=== PATIENT | female | born 1950 | race Caucasian/White ===

== ENCOUNTER → 2019-10-11 11:34 | Outpatient (CLI) | payer MEDICARE, OTHER, SELFPAY ==
--- NOTE | ~2019-10-11 | XR_ITS ---
EXAMINATION: XR chest 2V 10/11/2019 11:53 INDICATION: Dyspnea PROCEDURE: 2 view chest COMPARISON: Comparison to multiple prior studies sequentially, with oldest reviewed study dated 05/10. FINDINGS: The lungs are clear. Pacemaker leads are stable. The cardiomediastinal silhouette is within normal limits. There are no pleural effusions. There is no pneumothorax suspected. IMPRESSION: 1: NO ACUTE CARDIOPULMONARY DISEASE. Reviewed, dictated and finalized at location B. 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
== END ==
PROVIDERS: Visit Provider Family Medicine
DX: R06.09 Other forms of dyspnea (principal)
CPT/HCPCS: 71046

== ENCOUNTER 2019-11-07 05:47 | Day surgery (SDC) | payer MEDICARE, OTHER, SELFPAY ==
[2019-11-06 12:04] VITALS: BMI 31.5
[2019-11-07 07:23] VITALS: BP 127/66; PULSE 65; RESP 13; TEMP 37.2; O2SAT 98
[2019-11-07 07:33] LABS: Hematocrit 40.8 % (37.0-47.0); Hemoglobin 13.2 g/dL (12.0-15.0); Mean Corpuscular HGB Conc 32.4 g/dl (32-36); Mean Corpuscular Hemoglobin 29.3 pg (26-34); Mean Corpuscular Volume 90.5 fl (80-100); Mean Platelet Volume 9.9 fl (7.4-10.4); Platelet Count Result 313 k/mm3 (150-375); Red Blood Count 4.51 M/mm3 (4.2-5.4); White Blood Count 6.7 K/mm3 (4.5-10.0)
[2019-11-07 07:43] LABS: Prothrombin Time 13.1 Seconds (11.1-14.7)
[2019-11-07 07:44] LABS: Blood Urea Nitrogen 16 mg/dL (7-17); Calcium 9.1 mg/dL (8.4-10.2); Carbon Dioxide 25 mmol/L (22-30); Chloride 106 mmol/L (98-107); Estimated CRCL calculation 52 ml/min; Estimated Glomerular Filt Rate 55; Glucose 92 mg/dL (65-105); Potassium 4.1 mmol/L (3.4-5.0); Sodium 139 mmol/L (137-145)
--- NOTE | 2019-11-07 09:04 | PM.IMHP ---
H&P: HPI History of Present Illness Chief complaint: ANA MARÍA Narrative: Reyna Ponce is a 69 year old female with a Medtronic dual-chamber pacemaker which has reached ANA MARÍA. She is pacemaker dependent. She has noted increasing ERIC but no PND, orthopnea or dyspnea at rest. No chest pain. She has a remote history of nonischemic cardiomyopathy with normalization of left ventricular function on medical therapy. She has had an abnormal stress test and suspected but asymptomatic CAD, hyperlipidemia. History of PVCs. Review of Systems Constitutional: Constitutional: Reports fatigue and Reports lethargy ENT: Reports Normal hearing present Cardiovascular: Cardiovascular: Denies chest pain, Reports leg edema (Mild chronic edema) and Denies lightheadedness Respiratory: Respiratory: Denies chest congestion, Denies cough, Reports dyspnea and Reports dyspnea on exertion Gastrointestinal: Gastrointestinal: Denies abdominal pain Genitourinary: Genitourinary: Denies hematuria Musculoskeletal: Musculoskeletal: Reports no additional musculoskeletal complaints Integumentary/Breasts: Skin/Breast: Denies rash Neurologic: Denies confusion Psychiatric: Psychiatric: Denies confusion [facility] Past Medical History Medical History (Updated 11/07/19 @ 09:06 by Bety Venegas MD) Abnormal stress test COPD (chronic obstructive pulmonary disease) History of cardiomyopathy Surgical History Surgical History History of hysterectomy with bilateral oophorectomy Presence of cardiac pacemaker Family History Family History Father Hypertension Family history of elevated blood lipids Cerebrovascular accident Family history of lung cancer Mother Hypertension Family history of elevated blood lipids Family history of lung cancer Patient's mother is Grandparent Carcinoma of colon Sibling Patient's sister is in good health Patient's brother is in good health Social History Social History Smoking status: Never smoker Second hand tobacco smoke exposure: Yes Alcohol intake: never Substance use: never Substance use type: does not use Gender identity (if verbalized by the patient): Female Meds Home Medications and Allergies Home Medications Medication Instructions Recorded Confirmed Type aspirin 81 mg chewable tablet 81 mg PO DAILY 06/14/19 11/06/19 History buspirone 5 mg tablet 5 mg PO BID 06/14/19 11/06/19 History calcium carbonate 600 mg (1,500 1 tablet PO DAILY 06/14/19 11/06/19 History mg)-vitamin D3 400 unit tablet carvedilol phosphate 80 mg 80 mg PO DAILY #90 cap 06/14/19 11/06/19 Rx capsule,[id number] multiphase multivitamin 1 tablet PO DAILY 06/14/19 11/06/19 History umeclidinium 62.5 mcg-vilanterol 1 inhalation INHALATION DAILY 06/14/19 11/06/19 History 25 mcg/actuation powdr for inhalation duloxetine 60 mg capsule,delayed 60 mg PO DAILY #90 cap 09/25/19 11/06/19 Rx release losartan 25 mg tablet 25 mg PO DAILY #90 tablet 09/25/19 11/06/19 Rx pantoprazole 40 mg tablet,delayed 40 mg PO QAM #90 tablet 09/25/19 11/06/19 Rx release atorvastatin 40 mg tablet 40 mg PO DAILY #90 tablet 10/05/19 11/06/19 Rx alprazolam 0.25 mg PO DAILY PRN 11/06/19 11/06/19 History ascorbic acid (vitamin C) 500 mg PO DAILY 11/06/19 11/06/19 History biotin 1 mg PO TID 11/06/19 11/06/19 History glucosamine-methylsulfonylmeth 2 tablet PO BID 11/06/19 11/06/19 History Allergies Allergy/AdvReac Type Severity Reaction Status Date / Time No Known Allergies Allergy Verified 11/06/19 12:02 Vital Signs Vital Signs - 24 hr 11/07/19 07:23 Temperature 98.9 F Pulse Rate 65 Respiratory Rate 13 Blood Pressure 127/66 Pulse Oximetry 98 Exam Narrative: Exam Narrative: Pleasant lady accompanied by brother Mark, no distress Const:
--- NOTE | 2019-11-07 09:11 | WPDMODSED ---
Moderate Sedation Note-Pt Data Patient Data Diagnosis: Older female with Medtronic dual-chamber pacemaker which has reached ANA MARÍA. Pacer dependent. Present Complaint: Pacemaker at ANA MARÍA Procedure to be performed/Plan: Conscious sedation generator change Allergies Allergy/AdvReac Type Severity Reaction Status Date / Time No Known Allergies Allergy Verified 11/06/19 12:02 Home Medications Medication Instructions Recorded Confirmed Type aspirin 81 mg chewable tablet 81 mg PO DAILY 06/14/19 11/06/19 History buspirone 5 mg tablet 5 mg PO BID 06/14/19 11/06/19 History calcium carbonate 600 mg (1,500 1 tablet PO DAILY 06/14/19 11/06/19 History mg)-vitamin D3 400 unit tablet carvedilol phosphate 80 mg 80 mg PO DAILY #90 cap 06/14/19 11/06/19 Rx capsule,[id number] multiphase multivitamin 1 tablet PO DAILY 06/14/19 11/06/19 History umeclidinium 62.5 mcg-vilanterol 1 inhalation INHALATION DAILY 06/14/19 11/06/19 History 25 mcg/actuation powdr for inhalation duloxetine 60 mg capsule,delayed 60 mg PO DAILY #90 cap 09/25/19 11/06/19 Rx release losartan 25 mg tablet 25 mg PO DAILY #90 tablet 09/25/19 11/06/19 Rx pantoprazole 40 mg tablet,delayed 40 mg PO QAM #90 tablet 09/25/19 11/06/19 Rx release atorvastatin 40 mg tablet 40 mg PO DAILY #90 tablet 10/05/19 11/06/19 Rx alprazolam 0.25 mg PO DAILY PRN 11/06/19 11/06/19 History ascorbic acid (vitamin C) 500 mg PO DAILY 11/06/19 11/06/19 History biotin 1 mg PO TID 11/06/19 11/06/19 History glucosamine-methylsulfonylmeth 2 tablet PO BID 11/06/19 11/06/19 History Current Medications: See list Sedation/Anesthesia: No previous sedation/anesthesia problems (including family history). [facility] Past Medical History Medical History (Updated 11/07/19 @ 09:06 by Bety Venegas MD) Abnormal stress test COPD (chronic obstructive pulmonary disease) History of cardiomyopathy Surgical History Surgical History History of hysterectomy with bilateral oophorectomy Presence of cardiac pacemaker Family History Family History Father Hypertension Family history of elevated blood lipids Cerebrovascular accident Family history of lung cancer Mother Hypertension Family history of elevated blood lipids Family history of lung cancer Patient's mother is Grandparent Carcinoma of colon Sibling Patient's sister is in good health Patient's brother is in good health Social History Social History Smoking status: Never smoker Second hand tobacco smoke exposure: Yes Alcohol intake: never Substance use: never Substance use type: does not use Gender identity (if verbalized by the patient): Female Mod Sed Physical Exam Physical Exam Pre Procedural Exam: Normal: Appearance, Eyes, Ears, Nose, Neck, Throat (Dentures), Airway, Lungs, Heart Size, Heart Rate, Heart Rhythm, Neuro Exam, Abdomen, Liver, Extremities (Trace edema) and Skin (Pacemaker incision well healed, right-sided) and Variation: Throat (Dentures) and Extremities (Trace edema) Hours since solid foods: 12 Hours since liquid intake: 12 Internal Medicine - PN: Obj Da Vital Signs Vital Signs: Vital Signs - 24 hr 11/07/19 07:23 Temperature 98.9 F Pulse Rate 65 Respiratory Rate 13 Blood Pressure 127/66 Pulse Oximetry 98 Labs CBC & Chem 7: 11/07/19 07:26 11/07/19 07:26 Labs: Laboratory Results - last 24 hr 11/07/19 11/07/19 11/07/19 07:26 07:26 07:26 WBC 6.7 RBC 4.51 Hgb 13.2 Hct 40.8 MCV 90.5 MCH 29.3 MCHC 32.4 RDW 14.0 Plt Count 313 MPV 9.9 PT 13.1 INR 1.0 Sodium 139 Potassium 4.1 Chloride 106 Carbon Dioxide 25 BUN 16 Creatinine 1.00 Estim Creat Clear Calc 52 Estimated GFR 55 L Glucose 92 Calcium 9.1
--- NOTE | 2019-11-07 14:18 | P.OP_ITS ---
Procedure Note - Detailed Date of procedure: 11/07/19 Pre-op diagnosis: ANA MARÍA pacemaker at ANA MARÍA pacemaker dependent, complete heart block Post-op diagnosis: same Description of procedure: PROCEDURE: Concious sedation Generator change UNDERLYING RHYTHM: asystole CONSCIOUS SEDATION: Assessment: The patient has no history of anesthesia problems. The oropharynx is clear. The patient was deemed to be a good candidate for conscious sedation. The patient had continuous hemodynamic and oximetric monitoring during the procedure. Start time: 1334 Completion time: 14 13 Total conscious sedation time: 39 minutes Medications: Versed 2 mg IV push in fentanyl 50 mcg IV push Trained observer: Anya Moreno RN and Mary Kay Freeman RN Outcome: The patient tolerated the procedure well with no complications. PROCEDURE: After informed consent, the patient is brought to the labor delivery rn and the right prepectoral area was prepped and draped in usual fashion. The patient was given a prophylactic antibiotic intravenously with Ancef. After conscious sedation as described above, the area was anesthetized with 1% lidocaine. A skin incision is made with the Plasma Blade and carried down to the pacing capsule which was also incised. Hemostasis is obtained using the Plasma Blade. The lead/s was/were freed from the underlying capsule and the pulse generator was delivered from the pocket. The lead/s was/were disconnected from the existing device and reconnected to the new device. A gentle tug could not remove it/them. The device and lead/s was/were interrogated and found to be functioning appropriately. The area was copiously irrigated with antibiotic- containing solution. The device was placed in a TyRx pouch ( since this was a 2nd intervention and she is pacemaker dependent) andreplaced in the pocket. The subcutaneous tissues were closed in a two-layer fashion with interrupted 2 0 Vicryl sutures and the skin was closed in a continuous fashion using 4 0 Vicryl. The area was cleansed, an Aquacel dressing applied. The patient tolerated the procedure well with no complications. Estimated blood loss was negligible. DEVICE INFORMATION: Pulse generator: Medtronic Speedway XT DR GRAVES, model number W1DR01, serial number [id number] Existing right atrial lead: Medtronic model 5076-45, serial number [id number] Existing right ventricular lead: Medtronic model number 5076-5 2, serial number [id number] new line explanted device: Medtronic product number [id number], Serial # [id number] THRESHOLD INFORMATION: [facility] atrium: P-wave sensing 0.75 mV, impedance 323 Ohms, threshold 1.0 volts at 0.4 milliseconds Right ventricle: No R-waves present. Impedance 437 Ohms, threshold 1.0 volts at 0.4 milliseconds PROGRAMMED PARAMETERS: DDDR 60-130 Surgeon: Bety Venegas MD Findings: Uneventful generator change Underlying rhythm is ventricular asystole
[2019-11-07 14:30] VITALS: BP 137/85; PULSE 60; RESP 18; TEMP 36.7; O2SAT 100
[2019-11-07 14:45] VITALS: BP 132/79; PULSE 60; RESP 18; O2SAT 100
[2019-11-07 15:00] VITALS: BP 114/61; PULSE 60; RESP 18; O2SAT 100
[2019-11-07 15:15] VITALS: BP 116/76; PULSE 60; RESP 18; O2SAT 100
== END 2019-11-07 15:45 | disposition home or self-care (01) ==
PROVIDERS: PCP Family Medicine; Visit Provider Internal Medicine Cardiovascular Disease
PROC: 0JPT0PZ Removal of Cardiac Rhythm Related Device from Trunk Subcutaneous Tissue and Fascia, Open Approach (ICD-10-PCS; CPT 33228; principal; 2019-11-07 08:30)
DX: Z45.010 Encounter for checking and testing of cardiac pacemaker pulse generator [battery] (principal); I44.2 Atrioventricular block, complete; E78.5 Hyperlipidemia, unspecified; J44.9 Chronic obstructive pulmonary disease, unspecified; R94.39 Abnormal result of other cardiovascular function study; Z79.82 Long term (current) use of aspirin
CPT/HCPCS: 33213; 36415; 80048; 85027; 85610; C1785; J0690; J2250; J3010; J7040

== ENCOUNTER 2020-05-14 10:09 | Outpatient (CLI) | payer MEDICARE, OTHER, SELFPAY ==
--- NOTE | ~2020-05-14 | MM_ITS ---
EXAMINATION: MM screening grant BI w julia HISTORY: Screening TECHNIQUE: Craniocaudal and mediolateral oblique 3-D tomosynthesis images were obtained and synthetic 2-D images were generated. CAD analysis was submitted and interpreted. COMPARISON: Comparison to multiple prior studies sequentially, with oldest reviewed study dated 12/2011. BREAST PARENCHYMAL COMPOSITION: There are scattered areas of fibroglandular density. FINDINGS: There is no evidence of suspicious mass, calcification, or architectural distortion to sugg est malignancy in either breast. There has been no suspicious interval change. IMPRESSION: 1. No mammographic evidence of malignancy. 2. Recommend routine screening mammography in one year. BI-RADS CATEGORY 1 - NEGATIVE Reviewed, dictated and finalized at location A.
== END 2020-05-14 10:10 | disposition home or self-care (01) ==
PROVIDERS: PCP Family Medicine; Visit Provider Family Medicine
DX: Z12.31 Encounter for screening mammogram for malignant neoplasm of breast (principal)
CPT/HCPCS: 77063; 77067

== ENCOUNTER → 2020-10-21 11:09 | Outpatient (CLI) | payer MEDICARE, SELFPAY ==
--- NOTE | ~2020-10-21 | US_ITS ---
EXAMINATION: US soft tissue LE LT DATE: 10/21/2020 11:32 INDICATION: Posterolateral left knee pain TECHNIQUE: Multiple grayscale and Doppler ultrasound images of the posterior left knee were obtained. COMPARISON: None FINDINGS: Normal appearance to the left popliteal artery and vein at the popliteal fossa. No Lopez's cyst or ot her abnormal masses or fluid collections identified at the region of concern. IMPRESSION: 1. No abnormality identified at the left popliteal fossa region of concern. Specifically no Lopez's c yst. Reviewed, dictated and finalized at location B. IMPRESSION: 1. No abnormality identified at the left popliteal fossa region of concern. Spe cifically no Lopez's cyst.
== END ==
PROVIDERS: Visit Provider Family Medicine
DX: M25.562 Pain in left knee (principal)
CPT/HCPCS: 76882

== ENCOUNTER 2020-11-10 15:25 | Observation (INO) | payer MEDICARE, SELFPAY ==
[2020-11-10] VITALS (9 sets, daily range): BP systolic 114–146; BP diastolic 67–91; PULSE 60–72; RESP 12–20; TEMP 36.4–36.6; O2SAT 97–100
--- NOTE | ~2020-11-10 | XR_ITS ---
EXAMINATION: XR chest 2V DATE: 11/10/2020 15:48 INDICATION: Midsternal chest pain. TECHNIQUE: Frontal and lateral views of the chest were obtained. COMPARISON: Chest 2 views 10/11/2019 FINDINGS: There is mild atelectasis at the lung bases. No pleural effusion or pneumothorax. The heart size is normal. There is a right chest wall pacer with leads in the right atrium and right ventricle . IMPRESSION: 1. Mild atelectasis at the lung bases. Reviewed, dictated and finalized at location A.
--- NOTE | ~2020-11-10 | US_ITS ---
EXAMINATION: US venous doppler [facility] DATE: 11/11/2020 12:11 INDICATION: Left lower limb pain TECHNIQUE: Grayscale ultrasound images without and with compression and Doppler ultrasound images of the left lower extremity veins were obtained. COMPARISON: None. FINDINGS: The visualized portions of left common femoral vein, profunda (deep) femoral vein, femoral vein, popl iteal vein, peroneal veins, posterior tibial veins, gastrocnemius vein and greater saphenous vein out flow are patent. IMPRESSION: 1. No deep venous thrombosis in the left lower limb. Reviewed, dictated and finalized at location B.
--- NOTE | 2020-11-10 15:26 | ECG_ITS ---
Measurements Intervals [place] Rate: 71 P: 66 RI: 202 QRS: -76 QRSD: 183 T: 87 QT: 464 QTc: 508 Interpretive Statements ATRIAL SENSE- ELECTRONIC VENTRICULAR PACEMAKER BASELINE ARTIFACT- I, II, III, AVR, AVL, AVF NO FURTHER INTERPRETATION IS POSSIBLE ATYPICAL ECG Electronically Signed On 11-10-2020 17:20:32 CDT by Olvin Frausto D.O.
[2020-11-10 16:16] LABS: Basophils Percent Auto 0.3 % (0.2-1.2); Eosinophils Percent Auto 0.3 % (0-4.4); Hematocrit 40.1 % (37.0-47.0); Hemoglobin 13.2 g/dL (12.0-15.0); Immature Granulocyte Absolute 0.05 K/mm3 (0.00-0.031); Immature Granulocyte Percent A 0.4 % (0-0.5); Lymphocytes Absolute Auto 1.87 K/mm3 (0.9-3.2); Lymphocytes Percent Auto 15.9 % (18.3-44.2); Mean Corpuscular HGB Conc 32.9 g/dl (32-36); Mean Corpuscular Hemoglobin 29.2 pg (26-34); Mean Corpuscular Volume 88.7 fl (80-100); Mean Platelet Volume 9.3 fl (7.4-10.4); Monocytes Absolute Auto 0.8 K/mm3 (0.1-0.6); Monocytes Percent Auto 7.2 % (2.6-8.5); Neutrophils Absolute Auto 8.9 K/mm3 (1.3-6.7); Neutrophils Percent Auto 75.9 % (45.5-73.1); Platelet Count Result 359 k/mm3 (150-375); Red Blood Count 4.52 M/mm3 (4.2-5.4); Red Cell Distribution Width 13.9 % (11.5-14.5); White Blood Count 11.7 K/mm3 (4.5-10.0)
[2020-11-10 16:26] LABS: INR 0.9; Prothrombin Time 12.8 Seconds (11.1-14.7)
[2020-11-10 16:27] LABS: Partial Thromboplastin Time 20.1 SECONDS (22.3-36.8)
[2020-11-10 16:29] LABS: Anion Gap 4 mmol/L (8-16); Blood Urea Nitrogen 15 mg/dL (7-17); Calcium 9.1 mg/dL (8.4-10.2); Carbon Dioxide 30 mmol/L (22-30); Chloride 104 mmol/L (98-107); Estimated CRCL calculation 58 ml/min; Estimated Glomerular Filt Rate > 60; Glucose 128 mg/dL (65-105); Potassium 3.8 mmol/L (3.4-5.0); Sodium 138 mmol/L (137-145)
[2020-11-10 16:41] LABS: Troponin I < 0.012 ng/mL (0.000-0.034)
[2020-11-10] MEDS: ASPIRIN 81 MG CHEWABLE TABLET 324 MG PO (17:11)
--- NOTE | 2020-11-10 17:20 | ED.CHESTPAIN ---
HPI - Chest Pain General Chief Complaint: Chest Pain Stated Complaint: chest pain Time Seen by Provider: 11/10/20 17:01 Source: patient Mode of arrival: ambulatory Limitations: no limitations History of Present Illness HPI narrative: 70-year-old with a history of COPD, anxiety disorder, s/p pacemaker for remote history of cardiomyopathy here with complaints of midsternal chest pain which radiates into her back. Patient states that she was sitting on the couch and developed sudden onset of sharp pain in the mid chest lasted for really admitted to the hospital more than half hour. Patient states that upon arrival to the ER her symptoms have much subsided by the time she came to the room she states that she is feeling fine. She also complains of shortness of breath. Patient also mentions that she has been having tingling numbness in her toes was seen in the ER a week ago had an ultrasound of her leg which did not show any evidence of DVT. Patient denies any history of coronary artery disease . MD complaint: chest pain Onset (ago): hour(s) (2) Timing of current episode: now resolved Onset: during rest Pain location: substernal Pain radiation: back Severity: moderate Quality: sharp Relieving factors: nothing Exacerbating factors: nothing Treatment prior to arrival: none Related Data Home Medications Medication Instructions Recorded Confirmed aspirin 81 mg chewable tablet 81 mg PO DAILY 06/14/19 10/16/20 calcium carbonate 600 mg (1,500 1 tablet PO DAILY 06/14/19 10/16/20 mg)-vitamin D3 400 unit tablet multivitamin 1 tablet PO DAILY 06/14/19 10/16/20 ascorbic acid (vitamin C) 500 mg PO DAILY 11/06/19 10/16/20 biotin 1 mg PO TID 11/06/19 10/16/20 glucosamine-methylsulfonylmeth 2 tablet PO BID 11/06/19 10/16/20 Allergies Allergy/AdvReac Type Severity Reaction Status Date / Time No Known Allergies Allergy Verified 11/10/20 16:06 Review of Systems Review of Systems: All systems reviewed & are unremarkable except as noted in HPI and below Constitutional: Constitutional: Reports no additional constitutional complaints Eyes: Eyes: Reports no additional eye complaints ENT: Reports system reviewed and no additional complaints, except as documented Cardiovascular: Cardiovascular: Reports as per HPI Respiratory: Respiratory: Reports no additional respiratory complaints Gastrointestinal: Gastrointestinal: Reports no additional gastrointestinal complaints Musculoskeletal: Musculoskeletal: Reports no additional musculoskeletal complaints Neurologic: Reports system reviewed and no additional complaints, except as documented Psychiatric: Psychiatric: Reports no additional psychiatric complaints PMFSH Past Medical History Medical History Abnormal stress test COPD (chronic obstructive pulmonary disease) History of cardiomyopathy Surgical History Surgical History History of hysterectomy with bilateral oophorectomy Presence of cardiac pacemaker Family History Family History Father Hypertension Family history of elevated blood lipids Cerebrovascular accident Family history of lung cancer Mother Hypertension Family history of elevated blood lipids Family history of lung cancer Patient's mother is Grandparent Carcinoma of colon Sibling Patient's sister is in good health Patient's brother is in good health Social History Social History Smoking status: Never smoker Second hand tobacco smoke exposure: Yes Alcohol intake: never Substance use: never Substance use type: does not use Gender identity (if verbalized by the patient): Female Exam Narrative: Exam Narrative: GENERAL: Well-appearing, well-nourished, and in no acute distress. HEAD: Normocephalic, atraumatic. EYES: P
--- NOTE | 2020-11-10 18:00 | PM.IMHP ---
H&P: HPI History of Present Illness Date/Time: 11/10/20 18:00 Chief Complaint: Chest pain. Narrative: This is a very pleasant 70-year-old female with history of nonischemic cardiomyopathy with normalization of left ventricular function on medical therapy, Medtronic dual-chamber pacemaker in situ, hypertension, hyperlipidemia, and history of left leg DVT who presented to the emergency department earlier today from home with reports of chest pain. Approximately an hour or so prior to arrival she developed sudden onset of midsternal chest pain described as a ?sharp, deep pain? which radiated throughout her upper back associated with mild shortness of breath. It started to improve somewhat after about 45 minutes and completely resolved in the emergency department without intervention. 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 She has never had similar symptoms in the past. She gives no aggravating or alleviating factors. She denies feelings of racing heart, palpitations, syncope, near syncope, nausea, vomiting, and sweats. She has not had any exertional chest pain. Nor orthopnea or PND. She also denies significant edema however reports discomfort in her left lower extremity, more so behind the left knee for which she had a soft tissue ultrasound on 10/21/2020 which showed no abnormalities, specifically no Lopez's cyst. At the time my evaluation she has no complaints and is having no chest discomfort. Review of Systems Review of Systems: Narrative: Twelve systems were reviewed with pertinent positives and negatives as per HPI. No fever, chills, or sweats. No recent cold or flu symptoms. She denies exposure to those positive for COVID-19. She denies recent change in exercise program, heavy lifting, and concerns for muscle strain. No diarrhea or dysuria. Except as documented, all other systems were reviewed and are negative. [facility] Past Medical History Medical History (Updated 11/10/20 @ 22:35 by Keke Gu PA-C) Abnormal stress test Anxiety Chronic obstructive pulmonary disease Lifelong nonsmoker though she reports significant secondhand smoke exposure. Depression Dyslipidemia Gastroesophageal reflux disease History of cardiomyopathy Nonischemic cardiomyopathy with normalization of left ventricular function on medical therapy. History of deep vein thrombosis of lower extremity Hypertension Left bundle branch block Osteoarthritis Surgical History Surgical History (Updated 11/10/20 @ 22:35 by Keke Gu PA-C) History of appendectomy History of bunionectomy History of cardiac pacemaker in situ Medtronic dual-chamber pacemaker inserted after patient developed complete heart block. History of cholecystectomy History of hysterectomy with bilateral oophorectomy History of tonsillectomy Family History Family History Father Hypertension Family history of elevated blood lipids Cerebrovascular accident Family history of lung cancer Mother Hypertension Family history of elevated blood lipids Family history of lung cancer Patient's mother is Grandparent Carcinoma of colon Sibling Patient's sister is in good health Patient's brother is in good health Social History Social History (Updated 11/10/20 @ 22:32 by Keke Gu PA-C) Social History: The patient lives in [place]. Her son and 2 granddaughters, age 9 and 11, live at home with her. 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 No alcohol, tobacco, or illicit substance use. She designates her brother Valentino Hammer, as her surrogate decision maker and she wishes to be a full code. Sexual Orientation (if Verbalized by the Patient): Straight or Heterosexual Meds Home Medications
--- NOTE | 2020-11-10 18:46 | ADMGEN ---
This patient, Reyna Ponce, was admitted to IMU Room 203-01 [id number] on 11/10/2020. Patient/family oriented to hospital policies and general routines including ID bracelet, bed and alarms, visiting hours, pain management, procedures, bathroom and other care routines, personal items, smoking policy, room service/diet, and visiting hours. Report received from Coretta CATES. Information on how to activate the Rapid Response Team has been discussed. Patient/Family are encouraged to report perceived risks to care and to ask questions if they do not understand what they are told or what they should do.
[2020-11-10 18:56] LABS: Troponin I < 0.012 ng/mL (0.000-0.034)
[2020-11-10 21:59] LABS: Troponin I < 0.012 ng/mL (0.000-0.034)
[2020-11-10 23:03] LABS: D Dimer 0.57 ug/mL (<0.48)
[2020-11-10] MEDS: ALPRAZolam (*CRX) 0.25 MG TABLET PO (23:50)
[2020-11-11] VITALS (9 sets, daily range): BP systolic 117–139; BP diastolic 69–91; PULSE 60–70; RESP 14–16; TEMP 36.3–36.6; O2SAT 97–98
[2020-11-11 05:59] LABS: Alanine Aminotransferase 36 U/L (4-35); Alkaline Phosphatase 61 U/L (38-126); Anion Gap 0 mmol/L (8-16); Aspartate Amino Transferase 46 U/L (14-36); Bilirubin,Total 0.6 mg/dL (0.2-1.3); Blood Urea Nitrogen 14 mg/dL (7-17); Carbon Dioxide 31 mmol/L (22-30); Chloride 107 mmol/L (98-107); Estimated CRCL calculation 60 ml/min; Estimated Glomerular Filt Rate > 60; Glucose 85 mg/dL (65-105); Sodium 138 mmol/L (137-145)
[2020-11-11 06:29] LABS: Potassium 3.8 mmol/L (3.4-5.0)
[2020-11-11] MEDS: UMECLIDINIUM/VILANTEROL 62.5-25 MCG ELLIPTA 1 PUFF INHALATION (08:45)
[2020-11-11] MEDS: DULoxetine HCL 60 MG CAPSULE.DR PO (10:52)
[2020-11-11] MEDS: ATORVASTATIN 40 MG TABLET PO (10:52)
[2020-11-11] MEDS: ASCORBIC ACID 500 MG TABLET PO (10:52)
[2020-11-11] MEDS: PANTOPRAZOLE 40 MG TABLET PO (10:53)
[2020-11-11] MEDS: ASPIRIN 81 MG CHEWABLE TABLET PO (10:53)
[2020-11-11] MEDS: LOSARTAN POTASSIUM 25 MG TABLET PO (10:53)
[2020-11-11] MEDS: MULTIVITAMINS THERAPEUTIC TAB (*BKC) 1 TABLET PO (10:53)
[2020-11-11] MEDS: ENOXAPARIN 40 MG/0.4 ML SYRINGE SUB-Q (10:54)
--- NOTE | 2020-11-11 11:28 | PM.CNCAR ---
Assessment and Plan Assessment and plan (1) Chest pain: Code(s): R07.9 - Chest pain, unspecified Status: Acute Assessment and Plan: Atypical, isolated occurring after meal nonexertional resolved spontaneously, ruled out for myocardial infarction with negative enzymes. History of CT coronary angiogram without significant disease, stress test with fixed apical defect 2018. Denies exertional symptoms. She has no evidence for infarction, patient feels well and is asymptomatic at this time. Complaints of fatigue likely related to poor sleep, possible untreated TANYA, stressful home situation will can't exclude underlying CAD seems less likely given her history, longstanding presumed nonischemic cardiomyopathy with severe LV dysfunction in the past normal eyes for the past several years without evidence of CAD with workup although with apical on stress test as noted. Discussed options for ischemic evaluation which I recommend inpatient versus outpatient. Patient wishes to be discharged home to follow up as an outpatient. Will set up stress test soon as possible with Lexiscan given ventricular pacing. Patient advised if she has recurrence of severe to notify the office and/or present to nearest emergency department via EMS once again. Patient come for the plan of care. Discussed at bedside with her sister as well, all questions answered to their satisfaction. She mentions fatigue which the patient states is longstanding for several years no recent change. Patient describes falling asleep late in the day at times at rest due to fatigue. Consider outpatient sleep study evaluation. From a cardiac perspective provided patient does not have recurrence of chest pain may be discharged home in stable and improved condition to follow up as an outpatient with Dr. Venegas in 2-4 weeks. There is no indication for invasive angiography at this time. We discussed this option in detail given her history the unlikely development of severe obstructive CAD with the above clinical presentation but cannot entirely exclude as a consideration. (2) Hypertension: Code(s): I10 - Essential (primary) hypertension Status: Acute Assessment and Plan: Fair control. Continue current medical therapy. (3) Dyslipidemia: Code(s): E78.5 - Hyperlipidemia, unspecified Status: Acute Assessment and Plan: Continue aspirin, statin, carvedilol. (4) History of cardiomyopathy: Code(s): Z86.79 - Personal history of other diseases of the circulatory system Status: Acute Assessment and Plan: Continue carvedilol, losartan. Well compensated. EF 67% by last evaluation. (5) Presence of cardiac pacemaker: Code(s): Z95.0 - Presence of cardiac pacemaker Status: Acute Assessment and Plan: Pacemaker dependent, Ventricular paced rhythm on telemetry, normal device function last check. Upcoming assessment in the office. History of Present Illness History of Present Illness Consult date/time: Date of service: 11/11/20 11:28 Cardiology consultation at the request of Keke Gu NP for our opinion regarding complaints of chest pain. Requesting physician: Keke Gu PA-C Consult reason: chest pain Reason For Visit: unstable angina Narrative: Patient a very pleasant 70-year-old female with a history of presumed nonischemic cardiomyopathy with severe LV dysfunction in the past normalized the past several years status post dual chamber pacemaker pacemaker dependent, hypertension, dyslipidemia remote history of left lower extremity DVT who presented to the emergency department with her sister due to onset of midsternal chest pain she described as sharp, sensation as if her heart was wanting to burst at of her chest lasting 45 minutes slowly resolving after presentation without intervention. Patient has never experienced similar symptoms. This occurred at rest 1 hour after eating, never noted wit
--- NOTE | 2020-11-11 12:36 | PM.DS ---
DS: Admitting Diagnosis Admitting Diagnosis Admitting Diagnosis: Chief Complaint: Chest pain. DS: Discharge Diagnosis Discharge Diagnosis (1) Chest pain: Code(s): R07.9 - Chest pain, unspecified Status: Acute Assessment and Plan: Atypical in presentation but concerning giving her history of abnormal stress test. Ruled out for acute coronary syndrome by serial troponins. NPO after midnight for possible stress +/- cath. Dr. Venegas (cardiology) consulted and her input is appreciated. Continue aspirin, statin, and beta-desire. (2) Hypertension: Code(s): I10 - Essential (primary) hypertension Status: Acute Assessment and Plan: Blood pressures were reviewed and they are reasonably well controlled. Continue antihypertensives and monitor blood pressure daily. (3) Dyslipidemia: Code(s): E78.5 - Hyperlipidemia, unspecified Status: Acute Assessment and Plan: Continue statin and check LFTs. (4) Left leg pain: Code(s): M79.605 - Pain in left leg Status: Acute Assessment and Plan: Venous Doppler ultrasound in a.m. given history of DVT. DS: Summary Hospital Course Reason for hospitalization: Chief Complaint: Chest pain. Narrative: This is a very pleasant 70-year-old female with history of nonischemic cardiomyopathy with normalization of left ventricular function on medical therapy, Medtronic dual-chamber pacemaker in situ, hypertension, hyperlipidemia, and history of left leg DVT who presented to the emergency department earlier today from home with reports of chest pain. Approximately an hour or so prior to arrival she developed sudden onset of midsternal chest pain described as a ?sharp, deep pain? which radiated throughout her upper back associated with mild shortness of breath. It started to improve somewhat after about 45 minutes and completely resolved in the emergency department without intervention. She was not doing anything particular when the pain occurred but she did spend the morning doing clinical reviewer to include stripping beds, laundry, and vacuuming though she did not have any chest pain at that time. She has never had similar symptoms in the past. She gives no aggravating or alleviating factors. She denies feelings of racing heart, palpitations, syncope, near syncope, nausea, vomiting, and sweats. She has not had any exertional chest pain. Nor orthopnea or PND. She also denies significant edema however reports discomfort in her left lower extremity, more so behind the left knee for which she had a soft tissue ultrasound on 10/21/2020 which showed no abnormalities, specifically no Lopez's cyst. At the time my evaluation she has no complaints and is having no chest discomfort. Hospital Course: Patient with history of nonischemic cardiomyopathy presented atypical chest myocardial infarction was ruled out with 3 sets of negative cardiac enzymes, seen by Cardiology does not suspect coronary artery disease, did recommend cardiac catheterization to further evaluate cardiomyopathy however patient patient to follow-up as outpatient and wants to be discharged, patient is clinically stable will discharge the patient today Status at Discharge Functional status at discharge: uses cane/walker Overall status at discharge: patient is back to baseline Time Spent with Patient Time attestation: Total time spent providing and/or coordinating discharge services: Patient was seen and examined at the time of the discharge Condition at discharge is stable Code status: Full code. Time spent preparing discharge summary, discharge medications, discussing discharge planning with shoe caser and patient is 35 minutes. Time spent: Greater than 30 minutes Exam Narrative: Exam Narrative: Patient is comfortable, NAD HEENT: eyes are clear and none icteric LUNGS:CTA HEART: RR S1S2 ABD: BS+, Soft and nontender Lower extremities: no edema SKIN: nonjaundiced Neur
== END 2020-11-11 13:05 | disposition home or self-care (01) ==
LOC: ANHED 17:30 → ANHIMU 11-11 12:35
PROVIDERS: Emergency Medicine; Physician Assistant; Admitting Provider Internal Medicine; Emergency Provider Family Medicine; PCP Family Medicine; Visit Provider Family Medicine
DX: R07.89 Other chest pain (principal); R53.83 Other fatigue; J44.9 Chronic obstructive pulmonary disease, unspecified; F41.8 Other specified anxiety disorders; I10 Essential (primary) hypertension; E78.5 Hyperlipidemia, unspecified; M79.605 Pain in left leg; Z86.718 Personal history of other venous thrombosis and embolism; Z95.0 Presence of cardiac pacemaker
CPT/HCPCS: 36415; 71046; 80048; 80076; 84484; 85025; 85380; 85610; 85730; 93005; 93971; 96372; 99285; A9270; G0378; J1650

== ENCOUNTER 2021-07-28 09:32 | Outpatient (CLI) | payer MEDICARE, SELFPAY ==
--- NOTE | ~2021-07-28 | MM_ITS ---
EXAMINATION: MM screening [facility] BI w julia HISTORY: Screening mammogram TECHNIQUE: Craniocaudal and mediolateral oblique 3-D tomosynthesis images were obtained and synthetic 2-D images were generated. CAD analysis was submitted and interpreted. COMPARISON: 05/14/2020, 05/11/2017, 03/09/2016 BREAST PARENCHYMAL COMPOSITION: There are scattered areas of fibroglandular density. FINDINGS: There is no evidence of suspicious mass, calcification, or architectural distortion to sugg est malignancy in either breast. There has been no suspicious interval change. IMPRESSION: 1. No mammographic evidence of malignancy. 2. Recommend routine screening mammography in one year. BI-RADS Category 1: Negative Reviewed, dictated and finalized at location A. MACY CLINICAL COORDINATOR
--- NOTE | ~2021-07-28 | DEXA_ITS ---
Bone Density Report Name: TELLY HYATT Age: 71 Sex: Female Ethnicity: White Date of : 1950 Indication: postmenopausal; height loss; asthma or emphysema; hysterectomy; Referring Provider: AIYANA SEE Study: Bone densitometry was performed. Exam Date: July 28, 2021 Accession number: [id number] Bone Density: Region BMD T-score Z-score Classification AP Spine (L1, L3, L4) 1.094 0.4 2.4 Normal Femoral Neck (Left) 0.764 -0.8 1.0 Normal Total Hip (Left) 0.877 -0.5 0.9 Normal Total Hip Bilateral Avg 0.864 -0.6 0.8 Normal Femoral Neck (Right) 0.663 -1.7 0.1 Osteopenia Total Hip (Right) 0.851 -0.7 0.7 Normal World Health Organization criteria for BMD impression classify patients as: Normal (T-score at or above -1.0), Osteopenia (T-score between -1.0 and -2.5), or Osteoporosis (T-score at or below -2.5). Previous Exams: Region Exam Age BMD T-score BMD Change BMD Change Date g/cm2 vs Baseline vs Previous AP Spine(L1, L3, L4) 07/28/2021 71 1.094 0.4 0.048(4.5%)* 0.048(4.5%)* 02/16/2013 62 1.047 -0.1 Total Hip(Left) 07/28/2021 71 0.877 -0.5 -0.033(-3.6%)* -0.055(-5.9%)* 03/09/2016 65 0.932 -0.1 0.022(2.4%) 0.022(2.4%) 02/16/2013 62 0.910 -0.3 Total Hip(Right) 07/28/2021 71 0.851 -0.7 0.009(1.0%) -0.046(-5.1%)* 03/09/2016 65 0.897 -0.4 0.055(6.5%)* 0.055(6.5%)* 02/16/2013 62 0.842 -0.8 *Denotes significance at 95% confidence level, LSC for AP Spine = 0.022 g/cm2, LSC for Total Hip = 0.027 g/cm2 Clinical Information Provided by Patient: Has used the following medications: Vitamin D, Calcium Has the following medical conditions: Asthma or Emphysema, Hysterectomy Patient maximum height was 67 Menopause Age: 49 No regular weight bearing exercise Does not regularly consume dairy products Drinks caffeinated beverages Onset of menses at age 13 Number of children 2 Impression: The patient has low bone mass, based on the Right Femoral Neck T-score. The BMD for the Total Hip(Left) decreased, changing by -5.9% since the last DXA exam. The BMD for the Total Hip(Right) decreased, changing by -5.1% since the last DXA exam. Discussion: BONE DENSITY IS LOW AT ONE OR MORE SKELETAL SITES. This patient's lowest T-score is low at one or more skeletal sites. It meets the World Health Organization's (WHO) criteria for ?low bone mass? (T-score between -1.0 and -2.5). The patient's 10-year risk of fracture as calculated by FRAX is less than the threshold where pharmacological therapy is recommended by the National Osteoporosis Foundation (NOF).
== END 2021-07-28 09:33 | disposition home or self-care (01) ==
LOC: ANHIMG 09:34
PROVIDERS: PCP Family Medicine; Visit Provider Physician Assistant
DX: Z12.31 Encounter for screening mammogram for malignant neoplasm of breast (principal); Z78.0 Asymptomatic menopausal state; M85.851 Other specified disorders of bone density and structure, right thigh
CPT/HCPCS: 77063; 77067; 77080

== ENCOUNTER 2021-12-16 10:08 | Outpatient (CLI) | payer MEDICARE, SELFPAY ==
--- NOTE | 2021-12-16 10:23 | ECG_ITS ---
Measurements Intervals [place] Rate: 62 P: 64 FL: 189 QRS: -72 QRSD: 183 T: 72 QT: 465 QTc: 476 Interpretive Statements ATRIAL SENSE- ELECTRONIC VENTRICULAR PACEMAKER BASELINE ARTIFACT- I, II, III, AVR, AVL, AVF, V1-V6 NO FURTHER INTERPRETATION IS POSSIBLE ATYPICAL ECG Electronically Signed On 12-16-2021 10:40:58 CDT by Olvin Frausto D.O.
[2021-12-16 11:00] LABS: Anion Gap 5 mmol/L (8-16); Blood Urea Nitrogen 13 mg/dL (7-17); Carbon Dioxide 29 mmol/L (22-30); Chloride 104 mmol/L (98-107); Estimated Glomerular Filt Rate > 60; Glucose 69 mg/dL (65-110); Potassium 3.9 mmol/L (3.4-5.0); Sodium 138 mmol/L (137-145)
== END 2021-12-16 10:09 | disposition home or self-care (01) ==
PROVIDERS: Anesthesiology; PCP Family Medicine; Visit Provider Surgery
DX: Z01.818 Encounter for other preprocedural examination (principal); K40.90 Unilateral inguinal hernia, without obstruction or gangrene, not specified as recurrent; I10 Essential (primary) hypertension; Z51.81 Encounter for therapeutic drug level monitoring; Z79.899 Other long term (current) drug therapy
CPT/HCPCS: 36415; 80048; 86850; 86900; 86901; 93005

== ENCOUNTER 2021-12-24 00:15 | Day surgery (SDC) | payer MEDICARE, SELFPAY ==
[2021-12-12 09:14] VITALS: BMI 33.0
--- NOTE | 2021-12-12 09:44 | PC.NURSE ---
Report to the Outpatient Waiting Room, entrance under the green pavilion located off [facility], at time _0730_ on date _12/24/21_. OR Time: _0930_. - You and your visitor will be asked a series of questions to screen for COVID 19 for your protection. - Only one visitor is allowed at this time. - The patient visitor is requested to leave or wait in car when not with patient. - A mask is required within the hospital. Patients may have clear liquids (water, carbonated beverages, clear teas, apple juice) until 3 hours prior to surgery (0630 AM) with a maximum of 20 ounces. - No food from midnight until time of surgery Take the following medications with a SIP of water the morning of surgery: _COREG, DULOXETINE, ALPRAZOLAM IF NEEDED_ Medications to discontinue per ANESTHESIA - MULTIVITAMIN, VITAMIN C & GLUCOSAMINE 3 DAYS PRIOR TO SURGERY, Date to take last dose 12/22/21 Please no make-up, nail turkmen, hairspray, perfume, deodorant, or body powder the day of surgery. No jewelry (including any body piercings) or valuables the day of surgery, leave them at home. Please take a shower or bath the night before, or the morning of, surgery with an antibacterial soap. Wear comfortable, loose fitting clothing. - Jewelry must be removed prior to entering the operating room. Rings and piercings that are not removed may be cut off. - The hospital will not accept responsibility for valuables. - Please leave all valuables, including medications, at home the day of surgery. If you are going home after surgery, a licensed electric pile driver operator must drive you home. - NO public transportation without another adult. - We recommend that an adult stay with you for 24 hours following discharge. - We also recommend that you do not drive, make important decision, drink alcoholic beverages, or take any drugs that were not prescribed by your health care provider for at least 24 hours after your discharge time. Follow any additional instructions given to you from your surgeon. HIBICLENS SHOWER AM OF SURGERY If you or anyone in your household have experienced Covid symptoms in the past week, please notify your surgeon or the nurse liaison at the phone number below for possible testing. Telephone instructions given to _PT_and asked if any additional questions and then verbalized understanding. Patient advised to call surgeon office or pre surgery nurse liaison [phone] if any additional questions.
[2021-12-24] VITALS (16 sets, daily range): BP systolic 109–138; BP diastolic 59–80; PULSE 60–84; RESP 10–20; TEMP 36.2–36.4; O2SAT 96–100
[2021-12-24] MEDS: LACTATED RINGERS 1,000 ML 30 ML IV CONT ×2 (07:45→11:08)
[2021-12-24] MEDS: ACETAMINOPHEN 500 MG TABLET 1000 MG PO (07:52)
[2021-12-24] MEDS: KETOROLAC 15 MG/ML VIAL (*BKC) IV PUSH (07:53)
--- NOTE | 2021-12-24 08:34 | WPDANESEPPF ---
Anes - Initial Pre Proc Eval Procedure: Operation Date: 12/24/21 09:30 Proposed Procedures p Laparoscopic Right Inguinal Hernia Repair with Mesh, DaVinci Assisted - Ravi Siddiqi DO Date/Time: 12/24/21 08:34 Surgeon: Ravi Siddiqi DO Pre Op Diagnosis: Rt Ing Hernia Patient Data Age: 71 Gender: F Height: 1.65 m Weight: 83.15 kg Last Vital Signs Temp 36.2 C L 12/24/21 07:45 Pulse 84 12/24/21 07:45 Resp 16 12/24/21 07:45 BP 124/78 12/24/21 07:45 Pulse Ox 96 12/24/21 07:45 Allergies Allergy/AdvReac Type Severity Reaction Status Date / Time No Known Allergies Allergy Verified 12/24/21 08:18 Home Medications Medication Instructions Recorded Confirmed Type aspirin 81 mg chewable tablet 81 mg PO HS 06/14/19 12/24/21 History multivitamin 1 tablet PO DAILY 06/14/19 12/24/21 History ascorbic acid (vitamin C) 500 mg PO DAILY 11/06/19 12/12/21 History pantoprazole 40 mg tablet,delayed 40 mg PO QAM #90 tablet 10/16/20 12/12/21 Rx release calcium carbonate-vitamin D3 2 tablet PO QAM 11/10/20 12/12/21 History glucosamine sulfate 1,000 mg PO DAILY 11/10/20 12/12/21 History furosemide 20 mg tablet 20 mg PO QAM 05/14/21 12/12/21 History gabapentin 300 mg capsule 300 mg PO QHS 05/14/21 12/12/21 History alprazolam 0.25 mg tablet 0.25 mg PO DAILY PRN #30 tablet 09/29/21 12/24/21 Rx atorvastatin 40 mg PO QAM 12/12/21 12/12/21 History carvedilol phosphate [Coreg CR] 80 mg PO QAM 12/12/21 12/24/21 History duloxetine 60 mg PO QAM 12/12/21 12/24/21 History losartan 25 mg PO QAM 12/12/21 12/12/21 History umeclidinium-vilanterol [Anoro 1 inh QAM 12/12/21 12/12/21 History Ellipta] Patient hx anesthesia problems: none Family hx anesthesia problems: none Results Review: All pre-operative results and documents have been reviewed as part of the pre-operative evaluation. [facility] Past Medical History Medical History Abnormal stress test Anxiety Chronic obstructive pulmonary disease Lifelong nonsmoker though she reports significant secondhand smoke exposure. Depression Dyslipidemia Gastroesophageal reflux disease History of cardiomyopathy Nonischemic cardiomyopathy with normalization of left ventricular function on medical therapy. History of deep vein thrombosis of lower extremity Hypertension Left bundle branch block Osteoarthritis Surgical History Surgical History History of appendectomy History of bunionectomy History of cardiac pacemaker in situ Medtronic dual-chamber pacemaker inserted after patient developed complete heart block. History of hysterectomy with bilateral oophorectomy History of tonsillectomy Family History Family History Father Hypertension Family history of elevated blood lipids Cerebrovascular accident Family history of lung cancer Mother Hypertension Family history of elevated blood lipids Family history of lung cancer Patient's mother is Grandparent Carcinoma of colon Sibling Patient's sister is in good health Patient's brother is in good health Social History Social History Social History: The patient lives in [place]. Her son and 2 granddaughters, age 9 and 11, live at home with her. 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 No alcohol, tobacco, or illicit substance use. She designates her brother Valentino Hammer, as her surrogate decision maker and she wishes to be a full code. Smoking status: Never smoker Second hand tobacco smoke exposure: Yes Alcohol intake: never Substance use: never Substance use type: does not use Living arrangements: with family Additional living arrangements comments: PT'S SON (GAURI) AND HIS FAMILY LIVES WITH PT Additional occupation/education comments:
--- NOTE | 2021-12-24 09:11 | WPDHPUPDATE1 ---
History and Physical Update Update Date/Time: 12/24/21 09:11 History and Physical has been reviewed, including an updated exam of the patient. There are NO changes in the patient's condition. Risks, benefits, and alternatives have been discussed and questions answered. Patient agrees to proceed with procedure.
[2021-12-24] MEDS: ceFAZolin 2 GM/D5W 50 ML 2 GM/50 ML BAG IVPB (09:49)
--- NOTE | 2021-12-24 11:03 | W.PM.PROC2 ---
Procedure Note - Detailed Date of Procedure 12/24/21 Pre-op Diagnosis Right inguinal hernia Post-op Diagnosis Same (Indirect right inguinal hernia) Procedure Performed Laparoscopic right inguinal hernia repair with mesh, da Andreia assisted Surgeon Ravi Siddiqi, Anesthesia General and Local (0.5% bupivacaine with epinephrine) Indications This is a 71-year-old woman who presented with a right groin bulge and pain. She noticed this about 3 months ago. She has had tenderness with active. She was found to have a reducible right inguinal hernia on physical exam. Discussions were made with the patient about treatment options and decision was made to proceed with laparoscopic right inguinal hernia repair with mesh, da Andreia assisted. Findings Laparoscopic right inguinal hernia repair was performed. Patient was found to have an indirect right inguinal hernia just lateral to the inferior epigastric vessels. The round ligament was transected to allow for adequate preperitoneal pocket creation for mesh placement. A large right Bard 3DMax mid mesh was placed within the preperitoneal pocket overlying the entire right myopectineal orifice. No specimens were obtained for pathology. Description of Procedure Procedure as well as risks, benefits, and alternatives were discussed with the patient. Written consent was obtained and placed in chart prior to procedure. Patient was brought back to surgical suite. She was placed supine on operating table. Time-out was done to confirm patient and procedure. She was then intubated by Anesthesia Department. Her abdomen was prepped and draped in sterile fashion using chlorhexidine prep. 0.5% bupivacaine with epinephrine was infiltrated at each location for incision. An 8 mm incision was made in the left lateral abdomen, and a 5 mm Optiview trocar was advanced through the abdominal layers under direct visualization. Once inside the abdominal cavity, carbon dioxide insufflation was used to create a pneumoperitoneum. A camera was inserted and the abdominal cavity was inspected. The patient was placed in slight Trendelenburg position. An 8 millimeter incision was made on the right lateral abdomen and an 8 millimeter trocar was inserted under direct visualization. Another 8 millimeter incision was made just superior to the umbilicus and an 8 millimeter trocar was inserted under direct visualization. The 5 mm port was then removed and this was replaced with another 8 mm robotic port. The robotic arms were brought up to the patient's bedside and secured to the ports. The camera and instruments were inserted. I then moved over to the robotic console and took control of the camera and instruments. After careful inspection of the abdominal cavity, I began scoring the peritoneum along the [] lower quadrant using scissors with electrocautery. The preperitoneal plane was entered and this was carefully dissected caudally along the inferior epigastric vessels. Careful dissection with scissors with electrocautery and blunt dissection was used to continue this dissection. I dissected far enough laterally to allow for mesh placement, and also dissected medially to identify the pubic arch and Jose Armando's ligament. The hernia sac was identified and carefully dissected posteriorly. The round ligament was also identified and the peritoneum was carefully dissected far enough posteriorly to allow for mesh placement. The round ligament was transected using electrocautery to allow adequate preperitoneal pocket formation. Once an adequate pocket was created, I then placed the mesh within the preperitoneal pocket and carefully unfolded it. The mesh was centered on the hernia defect with adequate overlap circumferentially. The inferior edge of the mesh was inspected to ensure that it was far enough away from the peritoneal edge. The mesh appeared in proper position overlying the entire myopectineal orifice. The mesh was secured using 3-0 Vicryl sim
[2021-12-24] MEDS: oxyCODONE HCL (*CRX) 5 MG TAB IR PO (14:46)
== END 2021-12-24 16:51 | disposition home or self-care (01) ==
PROVIDERS: PCP Family Medicine; Visit Provider Surgery
PROC: 8E0Y4CZ Robotic Assisted Procedure of Lower Extremity, Percutaneous Endoscopic Approach (ICD-10-PCS; CPT 49650; principal; 2021-12-24 09:30)
DX: K40.90 Unilateral inguinal hernia, without obstruction or gangrene, not specified as recurrent (principal); I10 Essential (primary) hypertension; I44.7 Left bundle-branch block, unspecified; J44.9 Chronic obstructive pulmonary disease, unspecified; E78.5 Hyperlipidemia, unspecified; F41.8 Other specified anxiety disorders; K21.9 Gastro-esophageal reflux disease without esophagitis; I42.8 Other cardiomyopathies; Z86.718 Personal history of other venous thrombosis and embolism; Z95.0 Presence of cardiac pacemaker; E66.9 Obesity, unspecified; Z68.30 Body mass index [BMI] 30.0-30.9, adult
CPT/HCPCS: 49650; S2900; 36415; 80048; 86850; 86900; 86901; 93005; A9270; C1781; J0690; J1100; J1885; J2250; J2370; J2405; J2704; J2710; J3010; J7120

== ENCOUNTER 2021-12-28 18:03 | Inpatient (IN) | payer MEDICARE, SELFPAY ==
[2021-12-28] VITALS (11 sets, daily range): BP systolic 122–143; BP diastolic 58–79; PULSE 69–92; RESP 12–20; TEMP 36.1–36.6; O2SAT 92–100
--- NOTE | ~2021-12-28 | XR_ITS ---
EXAM: XR abdomen NG/feed tube insert DATE: 12/28/2021 20:38 HISTORY: NG INSERTION . COMPARISON: CT abdomen and pelvis, same date. FINDINGS: Bibasilar atelectasis. Dilated loops of small bowel in the upper abdomen. Partially visual ized right chest pacemaker. NG tube, tip and side port project over the stomach, side port rests at t he GE junction. Regional bones and soft tissues normal for age. IMPRESSION: NG tube, side port at the GE junction, correlate with tube function and consider advancin g. Reviewed, dictated and finalized at location K. IMPRESSION: NG tube, side port at the GE junction, correlate with tube function and consider advancing.
--- NOTE | ~2021-12-28 | CT_ITS ---
EXAMINATION: CT abdomen pelvis w con DATE: 12/28/2021 19:15 INDICATION: lower abdominal pain , hernia repair 3 days ago, nausea, vomiting, loss of appetite. TECHNIQUE: Computed tomography (CT) of the abdomen and pelvis was performed with 75 mL Omnipaque 300 intravenous contrast. Automated exposure control and iterative reconstruction technique were employed . The dose-length product was 1048.25 mGy-cm. COMPARISON: None FINDINGS: Lower thorax: Bilateral atelectasis/scar. Incompletely visualized pacer leads. Liver: Normal. Biliary/Gallbladder: Gallbladder is partially collapsed. Mild intra and extrahepatically or duct dila tation, without obstructing stone or mass. Common bile duct measures 8 mm. Pancreas: No mass or duct dilation. Spleen: Normal. Adrenals:No mass. Kidneys: No mass, stone, or hydronephrosis. GI tract: Diffusely dilated small bowel, transition point at the entrance of a right lateral abdomina l wall hernia which contains a loop of small bowel. Narrow hernia neck measuring 1.6 cm. Large bowel is normal. Appendix not visualized. Mesentery/Peritoneum: Small volume free pelvic fluid. Retroperitoneum: No mass. Pelvis: Pelvic organs are within normal limits. Soft Tissues: Subcutaneous gas and edema in the anterior abdominal wall. Small fat-containing umbilic al hernia. Surgical change/residual fluid right inguinal hernia. Bones: No acute osseous finding. IMPRESSION: Distal small bowel obstruction caused by herniation of small bowel into a small right lateral abdomin al wall hernia. Mild intra and extrahepatic biliary ductal dilatation, correlate with clinical/labora tory findings. Reviewed, dictated and finalized at location K. IMPRESSION: Distal small bowel obstruction caused by herniation of small bowel into a small right lateral abdominal wall hernia. Mild intra and extrahepatic biliary ducta l dilatation, correlate with clinical/laboratory findings.
[2021-12-28 18:26] LABS: Basophils Percent Auto 0.3 % (0.2-1.2); Eosinophils Absolute Auto 0.1 K/mm3 (0-0.3); Eosinophils Percent Auto 0.7 % (0-4.4); Hematocrit 43.4 % (37.0-47.0); Hemoglobin 14.2 g/dL (12.0-15.0); Immature Granulocyte Absolute 0.02 K/mm3 (0.00-0.031); Immature Granulocyte Percent A 0.3 % (0-0.5); Lymphocytes Absolute Auto 0.99 K/mm3 (0.9-3.2); Lymphocytes Percent Auto 13.3 % (18.3-44.2); Mean Corpuscular HGB Conc 32.7 g/dl (32-36); Mean Corpuscular Hemoglobin 28.9 pg (26-34); Mean Corpuscular Volume 88.4 fl (80-100); Mean Platelet Volume 9.2 fl (7.4-10.4); Monocytes Absolute Auto 0.9 K/mm3 (0.1-0.6); Monocytes Percent Auto 12.2 % (2.6-8.5); Neutrophils Absolute Auto 5.5 K/mm3 (1.3-6.7); Neutrophils Percent Auto 73.2 % (45.5-73.1); Platelet Count Result 407 k/mm3 (150-375); Red Blood Count 4.91 M/mm3 (4.2-5.4); White Blood Count 7.5 K/mm3 (4.5-10.0)
[2021-12-28 18:38] LABS: Alanine Aminotransferase 46 U/L (6-35); Albumin Level 4.4 g/dL (3.5-5.1); Alkaline Phosphatase 127 U/L (38-126); Anion Gap 8 mmol/L (8-16); Aspartate Amino Transferase 45 U/L (14-36); Bilirubin,Total 1.2 mg/dL (0.2-1.3); Blood Urea Nitrogen 18 mg/dL (7-17); Calcium 9.3 mg/dL (8.4-10.2); Carbon Dioxide 33 mmol/L (22-30); Chloride 90 mmol/L (98-107); Estimated CRCL calculation 57 ml/min; Estimated Glomerular Filt Rate > 60; Glucose 107 mg/dL (65-110); Lipase 265 U/L (23-300); Potassium 3.5 mmol/L (3.4-5.0); Sodium 131 mmol/L (137-145)
[2021-12-28] MEDS: ONDANSETRON INJ 4 MG/2 ML VIAL IV PUSH (18:42)
[2021-12-28] MEDS: LACTATED RINGERS 1,000 ML 999 ML IV CONT ×2 (18:42→19:26)
[2021-12-28 19:08] LABS: Add Urine Microscopic? YES; Appearance Urine Clear (Clear); Bilirubin Urine 2+ (Negative); Blood Urine Trace-Intact (Negative); Color Urine Yellow (Yellow); Glucose Urine UA Negative (Negative); Ketones Urine 4+ mg/dL (Negative); Leukocyte Esterase Ur Negative LEU/UL (Negative); Nitrate Urine Negative (Negative); Protein Urine 1+ mg/dL (Negative); Specific Grav Ur 1.025 (1.001-1.035); Urobilinogen Urine 0.2 mg/dL (<2.0)
[2021-12-28 19:16] LABS: Amorphous Sediment Urine Few; Bacteria Urine Trace /hpf; Mucus Urine Moderate /lpf; Squamous Epithelial Cell Urine Many /hpf (Few)
--- NOTE | 2021-12-28 19:18 | ED.NAVMDI ---
HPI - Nausea/Vomiting/Diarrhea General Chief complaint: Nausea/Vomiting/Diarrhea Stated complaint: post hernia surgery with N/V Time Seen by Provider: 12/28/21 18:10 Source: patient, RN notes reviewed and old records reviewed Mode of arrival: ambulatory Limitations: no limitations History of Present Illness HPI Narrative: This is a 71 year old female who presents for evaluation of nausea and vomiting s/p right inguinal hernia repair on 12/24/21. Patient states she developed nausea and vomiting on . She spoke with her surgeon on Wednesday and she was prescribed an antiemetic. She has been taking the prescribed medication with out relief of her nausea and vomiting. She reports her emesis is dark and foul swelling. SHe reports her last bowel movement was on but she has been passing flatus. She denies abdominal pain or wound drainage. She also denies fever, chill, but she reports she feels extremely weak. She has been unable to keep anything down. Related Data Home Medications Medication Instructions Recorded Confirmed aspirin 81 mg chewable tablet 81 mg PO HS 06/14/19 12/24/21 multivitamin 1 tablet PO DAILY 06/14/19 12/24/21 ascorbic acid (vitamin C) 500 mg PO DAILY 11/06/19 12/12/21 calcium carbonate-vitamin D3 2 tablet PO QAM 11/10/20 12/12/21 glucosamine sulfate 1,000 mg PO DAILY 11/10/20 12/12/21 furosemide 20 mg tablet 20 mg PO QAM 05/14/21 12/12/21 gabapentin 300 mg capsule 300 mg PO QHS 05/14/21 12/12/21 Anoro Ellipta 1 inh QAM 12/12/21 12/12/21 atorvastatin 40 mg PO QAM 12/12/21 12/12/21 carvedilol phosphate [Coreg CR] 80 mg PO QAM 12/12/21 12/24/21 duloxetine 60 mg PO QAM 12/12/21 12/24/21 losartan 25 mg PO QAM 12/12/21 12/12/21 Allergies Allergy/AdvReac Type Severity Reaction Status Date / Time No Known Allergies Allergy Verified 12/28/21 18:08 Review of Systems Review of Systems: All systems reviewed & are unremarkable except as noted in HPI and below Constitutional: Constitutional: Denies chills, Reports fatigue and Denies fever(s) Cardiovascular: Cardiovascular: Denies chest pain and Denies radiating jaw, neck or arm pain Respiratory: Respiratory: Denies cough, Denies dyspnea and Denies wheezing Gastrointestinal: Gastrointestinal: Denies abdominal pain, Denies diarrhea, Reports nausea and Reports vomiting Genitourinary: Genitourinary: Denies hematuria and Denies flank pain Neurologic: Reports weakness PMFSH Past Medical History Medical History Abnormal stress test Anxiety Chronic obstructive pulmonary disease Lifelong nonsmoker though she reports significant secondhand smoke exposure. Depression Dyslipidemia Gastroesophageal reflux disease History of cardiomyopathy Nonischemic cardiomyopathy with normalization of left ventricular function on medical therapy. History of deep vein thrombosis of lower extremity Hypertension Left bundle branch block Osteoarthritis Surgical History Surgical History History of appendectomy History of bunionectomy History of cardiac pacemaker in situ Medtronic dual-chamber pacemaker inserted after patient developed complete heart block. History of hysterectomy with bilateral oophorectomy History of tonsillectomy Family History Family History Father Hypertension Family history of elevated blood lipids Cerebrovascular accident Family history of lung cancer Mother Hypertension Family history of elevated blood lipids Family history of lung cancer Patient's mother is Grandparent Carcinoma of colon Sibling Patient's sister is in good health Patient's brother is in good health Social History Social History Social History: The patient lives in [place]. Her son and 2 granddaughters, age 9 and 11, live a
[2021-12-28] MEDS: LORazepam INJ (*CRX) 2 MG/ML VIAL 0.5 MG IV PUSH (19:55)
--- NOTE | 2021-12-28 20:18 | WPDANESEPP ---
Anes - Eval Pre Procedure Procedure: repair incarcerated incisional hernia Date/Time: 12/28/21 20:18 Surgeon: dacia Pre Op Diagnosis: post hernia surgery with N/V Patient Data Age: 71 Gender: F Height: 1.68 m Weight: 86.36 kg Last Vital Signs Temp 36.1 C L 12/28/21 18:05 Pulse 92 12/28/21 19:15 Resp 17 12/28/21 19:15 BP 139/67 12/28/21 19:15 Pulse Ox 100 12/28/21 19:15 Allergies Allergy/AdvReac Type Severity Reaction Status Date / Time No Known Allergies Allergy Verified 12/28/21 18:08 Home Medications Medication Instructions Recorded Confirmed Type aspirin 81 mg chewable tablet 81 mg PO HS 06/14/19 12/24/21 History multivitamin 1 tablet PO DAILY 06/14/19 12/24/21 History ascorbic acid (vitamin C) 500 mg PO DAILY 11/06/19 12/12/21 History pantoprazole 40 mg tablet,delayed 40 mg PO QAM #90 tablet 10/16/20 12/12/21 Rx release calcium carbonate-vitamin D3 2 tablet PO QAM 11/10/20 12/12/21 History glucosamine sulfate 1,000 mg PO DAILY 11/10/20 12/12/21 History furosemide 20 mg tablet 20 mg PO QAM 05/14/21 12/12/21 History gabapentin 300 mg capsule 300 mg PO QHS 05/14/21 12/12/21 History alprazolam 0.25 mg tablet 0.25 mg PO DAILY PRN #30 tablet 09/29/21 12/24/21 Rx Anoro Ellipta 1 inh QAM 12/12/21 12/12/21 History atorvastatin 40 mg PO QAM 12/12/21 12/12/21 History carvedilol phosphate [Coreg CR] 80 mg PO QAM 12/12/21 12/24/21 History duloxetine 60 mg PO QAM 12/12/21 12/24/21 History losartan 25 mg PO QAM 12/12/21 12/12/21 History hydrocodone-acetaminophen 1 tablet PO Q4H PRN #10 tablet 12/24/21 Rx ondansetron HCl 4 mg tablet 4 mg PO Q6H PRN #10 tablet 12/26/21 Rx Laboratory Tests 12/28/21 12/28/2112/28/22 18:21 18:21 18:53 WBC 7.5 K/mm3 K/mm3 (4.5-10.0) RBC 4.91 M/mm3 M/mm3 (4.2-5.4) Hgb 14.2 g/dL g/dL (12.0-15.0) Hct 43.4 % % (37.0-47.0) MCV 88.4 fl fl (80-100) MCH 28.9 pg pg (26-34) MCHC 32.7 g/dl g/dl (32-36) RDW 14.0 % % (11.5-14.5) Plt Count 407 k/mm3 H k/mm3 (150-375) MPV 9.2 fl fl (7.4-10.4) Immature Gran % (Auto) 0.3 % % (0-0.5) Neut % (Auto) 73.2 % H % (45.5-73.1) Lymph % (Auto) 13.3 % L % (18.3-44.2) [place] % (Auto) 12.2 % H % (2.6-8.5) Eos % (Auto) 0.7 % % (0-4.4) Baso % (Auto) 0.3 % % (0.2-1.2) Lymph # (Auto) 0.99 K/mm3 K/mm3 (0.9-3.2) [place] # (Auto) 0.9 K/mm3 H K/mm3 (0.1-0.6) Eos # (Auto) 0.1 K/mm3 K/mm3 (0-0.3) Baso # (Auto) 0.0 K/mm3 K/mm3 (0.0-0.1) Abs Immat Gran (auto) 0.02 K/mm3 K/mm3 (0.00-0.031) Absolute Neuts (auto) 5.5 K/mm3 K/mm3 (1.3-6.7) Absolute Nucleated RBC 0.0 K/mm3 K/mm3 (0.0-0.012) Nucleated RBC % 0.0 % % (0.0-0.2) Sodium 131 mmol/L L mmol/L (137-145) Potassium 3.5 mmol/L mmol/L (3.4-5.0) Chloride 90 mmol/L L mmol/L (98-107) Carbon Dioxide 33 mmol/L H mmol/L (22-30) Anion Gap 8 mmol/L mmol/L (8-16) BUN 18 mg/dL H mg/dL (7-17) Creatinine 0.90 mg/dL mg/dL (0.7-1.0) Estim Creat Clear Calc 57 ml/min ml/min Estimated GFR > 60 (59 - ) Glucose 107 mg/dL mg/dL (65-110) Calcium 9.3 mg/dL mg/dL (8.4-10.2) Total Bilirubin 1.2 mg/dL mg/dL (0.2-1.3) AST 45 U/L H U/L (14-36) ALT 46 U/L H U/L (6-35) Alkaline Phosphatase 127 U/L H U/L (38-126) Total Protein 7.0 g/dL g/dL (6.3-8.2) Albumin 4.4 g/dL g/dL (3.5-5.1) Lipase 265 U/L U/L (23-300) Urine Color Yellow (Yellow) Urine Appearance Clear (Clear) Urine pH 6.0 (5.0-9.0) Ur Specific [place] 1.025 (1.001-1.035) Urine Protein 1+ mg/dL H mg/dL (Negative) Urine Glucose (UA)
--- NOTE | 2021-12-28 20:50 | PC.NURSE ---
VORB per KIM Pina to use.
--- NOTE | 2021-12-28 20:52 | PM.IMHP ---
H&P: HPI History of Present Illness Date/Time: 12/28/21 20:52 Pt is a 71 y/o F s/p robotic assisted RIH repair on 12/24 presents to ED c/o intractable N/V, crampy abdominal pain. Pt reports sx have been ongoing since night. Pt reports progressive worsening and is largely unable to keep anything down at this point. Workup in ED, including CT, is significant for incarcerated R port site hernia c SBO. Chief Complaint: incarcerated incisional hernia Review of Systems Constitutional: Constitutional: Reports as per HPI, Reports anorexia, Denies chills, Reports fatigue, Denies fever(s), Denies headache(s), Reports lethargy, Reports malaise, Denies night sweats, Reports poor appetite, Reports weakness, Denies weight gain and Denies weight loss Eyes: Eyes: Reports no additional eye complaints ENT: Reports system reviewed and no additional complaints, except as documented Cardiovascular: Cardiovascular: Reports no additional cardiovascular complaints Respiratory: Respiratory: Reports no additional respiratory complaints Gastrointestinal: Gastrointestinal: Reports as per HPI, Reports abdominal pain, Reports bloating, Reports change in bowel habits, Reports change in stool character, Reports constipation, Reports GI cramping, Reports early satiety, Reports nausea and Reports vomiting Genitourinary: Genitourinary: Reports no additional female genitourinary complaints Musculoskeletal: Musculoskeletal: Reports no additional musculoskeletal complaints Integumentary/Breasts: Skin/Breast: Reports system reviewed and no additional complaints, except as docu Neurologic: Reports system reviewed and no additional complaints, except as documented Psychiatric: Psychiatric: Reports no additional psychiatric complaints Endocrine: Endocrine: Reports no additional endocrine complaints Hematologic/Lymphatic: Hematologic/Lymphatic: Reports no additional hematologic/lymphatic complaints Allergic/Immunologic: Allergic/Immunologic: Reports no additional allergic/immunologic complaints [facility] Past Medical History Medical History Abnormal stress test Anxiety Chronic obstructive pulmonary disease Lifelong nonsmoker though she reports significant secondhand smoke exposure. Depression Dyslipidemia Gastroesophageal reflux disease History of cardiomyopathy Nonischemic cardiomyopathy with normalization of left ventricular function on medical therapy. History of deep vein thrombosis of lower extremity Hypertension Left bundle branch block Osteoarthritis Surgical History Surgical History History of appendectomy History of bunionectomy History of cardiac pacemaker in situ Medtronic dual-chamber pacemaker inserted after patient developed complete heart block. History of hysterectomy with bilateral oophorectomy History of tonsillectomy Family History Family History Father Hypertension Family history of elevated blood lipids Cerebrovascular accident Family history of lung cancer Mother Hypertension Family history of elevated blood lipids Family history of lung cancer Patient's mother is Grandparent Carcinoma of colon Sibling Patient's sister is in good health Patient's brother is in good health Social History Social History Social History: The patient lives in [place]. Her son and 2 granddaughters, age 9 and 11, live at home with her. 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 No alcohol, tobacco, or illicit substance use. She designates her brother Valentino Hammer, as her surrogate decision maker and she wishes to be a full code. Smoking status: Never smoker Second hand tobacco smoke exposure: Yes Alcohol intake: never Substance use: never Substance use type: does not use Ad
--- NOTE | 2021-12-28 21:00 | WPDHPUPDATE1 ---
History and Physical Update Update Date/Time: 12/28/21 21:00 History and Physical has been reviewed, including an updated exam of the patient. There are NO changes in the patient's condition. Risks, benefits, and alternatives have been discussed and questions answered. Patient agrees to proceed with procedure.
--- NOTE | 2021-12-28 21:03 | WPDANESEFPP ---
Anes - Eval Final PreProcedure Day of Procedure 12/28/21 21:03 Patient weight: obese Heart: regular rate and rhythm Lungs: clear to auscultation and normal air movement Airway: Mallampati scale class II Neurological: alert and oriented Last oral intake: >/= 8 hours ASA classification: III Emergent: yes Anesthetic plan: proceed Anesthesia type and monitoring: general ETT Results Review: All pre-operative results and documents have been reviewed as part of the pre-operative evaluation. Informed Consent: The patient's anesthetic plan and its attendant risks and benefits were discussed with the patient/family/POA. Questions were solicited and answers provided to the satisfaction of the patient/family/POA.
--- NOTE | 2021-12-28 22:04 | W.PM.PROC2 ---
Procedure Note - Detailed Date of Procedure 12/28/21 Pre-op Diagnosis incarcerated incisional hernia with small-bowel obstruction Post-op Diagnosis Same Procedure Performed Diagnostic laparoscopy, reduction of incarcerated small bowel, primary repair of incisional hernia Surgeon Helen Barry MD Anesthesia General and Local Indications 71-year-old female status post robotic assisted right inguinal hernia repair on 12/24/2021 presents to the emergency department with incarcerated port site hernia with small-bowel obstruction Findings Incarcerated loop of small intestine in the right 8 mm port site, small bowel viable after reduction Description of Procedure The patient was taken to the operating room and placed in the supine position. After adequate induction of general anesthesia, the patient was prepped and draped in the normal sterile fashion. A time-out was then done to verify the patient's identity, as well as the procedure being performed. I began 1st by making a 5 mm incision through the previous left mid abdominal port site. A Veress needle was then placed in the peritoneal cavity and CO2 gas was insufflated. After adequate pneumoperitoneum was achieved, the Veress was removed and a 5 mm Optiview was placed under direct visualization through this incision. I then examined the abdomen and noted the incarcerated incisional hernia in the right mid abdomen. I then placed a further 5 mm infraumbilical port under direct visualization. I then used a bowel grasper and using very gentle traction was able to reduce the incarcerated small intestine. Once reduced, I visualized the intestine and it was noted to be viable. I did run the small intestine around the incarcerated area and no other pathology was noted. I then opened the skin at the previous right mid abdominal 8 mm port site. I then placed a Santosh cone into the abdomen under direct visualization. I then used an 0 Vicryl stitch to close the 8 mm defect under direct visualization. I did visualize the other 2 8 mm port sites and they has largely healed over. There was no defects noted in the 2 other sites. At this point the abdomen was desufflated and all ports were removed. All incisions were closed with 4-0 Monocryl subcuticular suture and Dermabond was placed on the wounds. The patient tolerated the procedure well and was extubated in the operating room postoperatively. She will be sent to the recovery room in stable condition. Estimated Blood Loss 5 Drains No Packing No Pathology None sent Complications No immediate complications Condition Stable Disposition PACU [facility] Billing Surgery - Charge Forward: Surgery Billing
[2021-12-28] MEDS: LACTATED RINGERS 1,000 ML 30 ML IV CONT ×2 (22:12→22:50)
[2021-12-28] MEDS: fentaNYL CITRATE INJ (*CRX) 100 MCG/2 ML VIAL 25 MCG IV PUSH ×7 (22:30→23:35)
--- NOTE | 2021-12-28 22:49 | SUR.PHASEI ---
Simple mask removed at 3304.
[2021-12-29 00:21] VITALS: BP 114/57; PULSE 69; RESP 18; TEMP 36.3; O2SAT 93
[2021-12-29] MEDS: SODIUM CHLORIDE 0.9% IV 1,000 ML 125 ML IV CONT (00:30)
--- NOTE | 2021-12-29 00:44 | ADMGEN ---
This patient, Reyna Ponce, was admitted to 3 [facility] Surg Room 320-01. Patient/family oriented to hospital policies and general routines including ID bracelet, bed and alarms, visiting hours, pain management, procedures, bathroom and other care routines, personal items, smoking policy, room service/diet, and visiting hours. Information on how to activate the Rapid Response Team has been discussed. Patient/Family are encouraged to report perceived risks to care and to ask questions if they do not understand what they are told or what they should do.
[2021-12-29 05:27] VITALS: BP 102/81; PULSE 72; RESP 8; TEMP 36.4; O2SAT 94
[2021-12-29 07:16] LABS: Basophils Percent Auto 0.2 % (0.2-1.2); Hematocrit 35.9 % (37.0-47.0); Hemoglobin 11.7 g/dL (12.0-15.0); Immature Granulocyte Absolute 0.01 K/mm3 (0.00-0.031); Immature Granulocyte Percent A 0.2 % (0-0.5); Lymphocytes Absolute Auto 0.64 K/mm3 (0.9-3.2); Lymphocytes Percent Auto 11.5 % (18.3-44.2); Mean Corpuscular HGB Conc 32.6 g/dl (32-36); Mean Corpuscular Hemoglobin 29.1 pg (26-34); Mean Corpuscular Volume 89.3 fl (80-100); Mean Platelet Volume 9.3 fl (7.4-10.4); Monocytes Absolute Auto 0.3 K/mm3 (0.1-0.6); Monocytes Percent Auto 5.4 % (2.6-8.5); Neutrophils Absolute Auto 4.6 K/mm3 (1.3-6.7); Neutrophils Percent Auto 82.7 % (45.5-73.1); Platelet Count Result 280 k/mm3 (150-375); Red Blood Count 4.02 M/mm3 (4.2-5.4); White Blood Count 5.6 K/mm3 (4.5-10.0)
[2021-12-29 07:32] LABS: Alanine Aminotransferase 32 U/L (6-35); Albumin Level 2.9 g/dL (3.5-5.1); Alkaline Phosphatase 85 U/L (38-126); Anion Gap 7 mmol/L (8-16); Aspartate Amino Transferase 32 U/L (14-36); Bilirubin,Total 0.6 mg/dL (0.2-1.3); Blood Urea Nitrogen 15 mg/dL (7-17); Calcium 7.8 mg/dL (8.4-10.2); Carbon Dioxide 28 mmol/L (22-30); Chloride 99 mmol/L (98-107); Estimated CRCL calculation 64 ml/min; Estimated Glomerular Filt Rate > 60; Glucose 108 mg/dL (65-110); Potassium 3.5 mmol/L (3.4-5.0); Sodium 134 mmol/L (137-145)
[2021-12-29 08:00] VITALS: RESP 16
[2021-12-29] MEDS: ENOXAPARIN 40 MG/0.4 ML SYRINGE SUB-Q (08:06)
[2021-12-29 08:47] VITALS: O2SAT 94
--- NOTE | 2021-12-29 09:53 | WPDANESPN ---
Anes - Prog Note Post-Op Date/Time: 12/29/21 09:53 Cardiovascular status: normal Respiratory status: normal Airway patency: baseline Mental status: baseline Post-Op hydration status: normal Vital Signs: Last Vital Signs Temp 36.4 C 12/29/21 05:27 Pulse 72 12/29/21 05:27 Resp 16 12/29/21 08:00 BP 102/81 12/29/21 05:27 Pulse Ox 94 12/29/21 08:47 Pain Score (VAS): 0 I/O: Intake & Output 12/28/21 12/29/21 12/29/21 23:59 07:59 15:59 Intake Total 2550 180 Output Total 720 150 Balance 1830 30 Laboratory Tests 12/29/21 07:06 12/29/21 07:06 12/28/21 12/28/21 12/28/21 18:21 18:21 18:53 WBC 7.5 RBC 4.91 Hgb 14.2 Hct 43.4 MCV 88.4 MCH 28.9 MCHC 32.7 RDW 14.0 Plt Count 407 H MPV 9.2 Immature Gran % (Auto) 0.3 Neut % (Auto) 73.2 H Lymph % (Auto) 13.3 L [place] % (Auto) 12.2 H Eos % (Auto) 0.7 Baso % (Auto) 0.3 Lymph # (Auto) 0.99 [place] # (Auto) 0.9 H Eos # (Auto) 0.1 Baso # (Auto) 0.0 Abs Immat Gran (auto) 0.02 Absolute Neuts (auto) 5.5 Absolute Nucleated RBC 0.0 Nucleated RBC % 0.0 Sodium 131 L Potassium 3.5 Chloride 90 L Carbon Dioxide 33 H Anion Gap 8 BUN 18 H Creatinine 0.90 Estim Creat Clear Calc 57 Estimated GFR > 60 Glucose 107 Calcium 9.3 Total Bilirubin 1.2 AST 45 H ALT 46 H Alkaline Phosphatase 127 H Total Protein 7.0 Albumin 4.4 Lipase 265 Urine Color Yellow Urine Appearance Clear Urine pH 6.0 Ur Specific [place] 1.025 Urine Protein 1+ H Urine Glucose (UA) Negative Urine Ketones 4+ H Ur Blood (Man) Trace-intact Urine Nitrate Negative Urine Bilirubin 2+ H Urine Urobilinogen 0.2 Leukocyte Esterase Rfl Negative Urine RBC 3-5 H Urine WBC 4-6 H Ur Squamous Epith Cells Many H Amorphous Sediment Few H Urine Bacteria Trace Urine Mucus Moderate H 12/29/21 12/29/21 07:06 07:06 WBC 5.6 RBC 4.02 L Hgb 11.7 L Hct 35.9 L MCV 89.3 MCH 29.1 MCHC 32.6 RDW 14.0 Plt Count 280 MPV 9.3 Immature Gran % (Auto) 0.2 Neut % (Auto) 82.7 H Lymph % (Auto) 11.5 L [place] % (Auto) 5.4 Eos % (Auto) 0.0 Baso % (Auto) 0.2 Lymph # (Auto) 0.64 L [place] # (Auto) 0.3 Eos # (Auto) 0.0 Baso # (Auto) 0.0 Abs Immat Gran (auto) 0.01 Absolute Neuts (auto) 4.6 Absolute Nucleated RBC 0.0 Nucleated RBC % 0.0 Sodium 134 L Potassium 3.5 Chloride 99 Carbon Dioxide 28 Anion Gap 7 L BUN 15 Creatinine 0.80 Estim Creat Clear Calc 64 Estimated GFR > 60 Glucose 108 Calcium 7.8 L Total Bilirubin 0.6 AST 32 ALT 32 Alkaline Phosphatase 85 Total Protein 5.0 L Albumin 2.9 L Lipase Urine Color Urine Appearance Urine pH Ur Specific [place] Urine Protein Urine Glucose (UA) Urine Ketones Ur Blood (Man) Urine Nitrate Urine Bilirubin Urine Urobilinogen Leukocyte Esterase Rfl Urine RBC Urine WBC Ur Squamous Epith Cells Amorphous Sediment Urine Bacteria Urine Mucus Post-procedural complaints: none Patient Feedback: Patient satisfied with anesthetic care.
--- NOTE | 2021-12-29 12:11 | PM.PNGS ---
Progress Note: A&P Assessment and Plan (1) Incisional hernia with bowel obstruction: Code(s): K43.0 - Incisional hernia with obstruction, without gangrene Status: Acute Assessment and Plan: Doing well on POD#1. Remove NG and start clear liquids. Increase activity. Possibly home tomorrow if continuing to improve. (2) Small bowel obstruction: Code(s): K56.609 - Unspecified intestinal obstruction, unspecified as to partial versus complete obstruction Status: Acute (3) S/P right inguinal hernia repair: Code(s): Z98.890 - Other specified postprocedural states; Z87.19 - Personal history of other diseases of the digestive system Status: Acute Subjective Subjective Date/Time Seen: 12/29/21 12:11 Interval history: Pain controlled. No nausea/vomiting. No flatus yet. Exam GI: Inspection: incision (intact with glue) GI Palp: Yes Soft to palpation, Yes Tenderness to palpation present (GI) (incisional) and No Guarding due to palpation present (GI) Objective Data Vital Signs Vital Signs: Vital Signs - 24 hr 12/28/21 18:05 12/28/21 18:46 12/28/21 19:15 Temperature 36.1 C L Pulse Rate 85 69 92 Respiratory Rate 14 14 17 Blood Pressure 137/79 124/75 139/67 Pulse Oximetry 98 100 100 12/28/21 20:47 12/28/21 22:12 12/28/21 22:25 Temperature 36.6 C Pulse Rate 77 77 73 Respiratory Rate 17 20 12 Blood Pressure 143/72 H 124/63 128/68 Pulse Oximetry 98 100 100 12/28/21 22:40 12/28/21 22:55 12/28/21 23:10 Temperature Pulse Rate 74 70 73 Respiratory Rate 14 14 12 Blood Pressure 136/65 122/58 L 125/75 Pulse Oximetry 100 93 95 12/28/21 23:25 12/28/21 23:38 12/29/21 00:21 Temperature 36.3 C L Pulse Rate 69 70 69 Respiratory Rate 13 16 18 Blood Pressure 128/73 129/69 114/57 L Pulse Oximetry 92 94 93 12/29/21 05:27 12/29/21 08:00 12/29/21 08:47 Temperature 36.4 C Pulse Rate 72 Respiratory Rate 8 L 16 Blood Pressure 102/81 Pulse Oximetry 94 94 Intake/Output Intake/Output: Intake & Output 12/26/21 12/27/21 12/28/21 12/29/21 23:59 23:59 23:59 23:59 Intake Total 2550 180 Output Total 720 150 Balance 1830 30 Meds/Results Medications: Active Medications Generic Name Dose Route Start Last Admin Trade Name Freq PRN Reason Stop Dose Admin Hydrocodone Bitart/Acetaminophen 1 tab 12/28/21 23:44 Hydrocodone/Acetaminophen (*Crx) 5-325 Mg Tablet PO Q4H PRN Pain Rated 4-6 Diphenhydramine HCl 25 mg 12/28/21 23:44 Diphenhydramine Hcl Inj 50 Mg/Ml Vial IV PUSH Q6H PRN Itching Enoxaparin Sodium 40 mg 12/29/21 09:00 12/29/21 08:06 Enoxaparin 40 Mg/0.4 Ml Syringe SUB-Q 40 mg DAILY LAILA Administration Acetaminophen 1,000 mg in 100 mls @ 400 mls/hr 12/28/21 19:51 12/29/21 07:31 Ofirmev 1,000 Mg Ivpb IVPB 12/29/21 19:50 400 mls/hr Q6H PRN Administration Mild Pain (1-3) or Fever Morphine Sulfate 2 mg 12/28/21 23:44 Morphine Sulfate (*Crx) 2 Mg/Ml Inj IV PUSH Q2H PRN Pain Rated 4-6 Ondansetron HCl 4 mg 12/28/21 19:51 Ondansetron Inj 4 Mg/2 Ml Vial IV PUSH Q4H PRN Nausea Senna/Docusate Sodium 2 tab 12/29/21 21:00 Senna/Docusate Sodium Tablet PO HS [facility] Radiology Results: ITS Impressions Abdomen/Pelvis CT 12/28/21 19:20 IMPRESSION: Distal small bowel obstruction caused by herniation of small bowel into a small right lateral abdominal wall hernia. Mild intra and extrahepatic biliary ductal dilatation, correlate with clinical/laboratory findings. Abdomen X-Ray 12/28/21 20:51 IMPRESSION: NG tube, side port at the GE junction, correlate with tube function and consider advancing. Labs Labs: Laboratory Results - last 24 hr 12/28/21 12/28/21 12/28/21 18:21 18:21 18:53 WBC 7.5 RBC 4.91 Hgb 14.2 Hct 43.4 MCV 88.4 MCH 28.9 MCHC 32.7 RDW 14.0 Plt Count 407 H MPV 9.2 Immature Gran % (Auto)
--- NOTE | 2021-12-29 12:26 | PC.NURSE ---
Removed NG tube per doctor orders, patient tolerated well. Patient drinking water and tolerating well.
[2021-12-29 13:57] VITALS: BP 123/65; PULSE 70; RESP 16; TEMP 36.6; O2SAT 99
[2021-12-29] MEDS: HYDROcodone/acetaminophen (*CRX) 5-325 MG TABLET 1 TAB PO (20:29)
[2021-12-29] MEDS: SENNA/DOCUSATE SODIUM TABLET 2 TAB PO (20:29)
[2021-12-29 21:30] VITALS: BP 118/60; PULSE 66; RESP 18; TEMP 37.1; O2SAT 99
[2021-12-30 06:00] VITALS: BP 116/63; PULSE 63; RESP 18; TEMP 36.2; O2SAT 98
[2021-12-30 08:00] VITALS: PULSE 63; RESP 18; O2SAT 98
[2021-12-30] MEDS: ENOXAPARIN 40 MG/0.4 ML SYRINGE SUB-Q (08:48)
--- NOTE | 2021-12-30 10:34 | PM.DS ---
DS: Admitting Diagnosis Discharge Date 12/30/2021 Admitting Diagnosis incarcerated incisional hernia c SBO DS: Discharge Diagnosis Discharge Diagnosis (1) Incisional hernia with bowel obstruction: Code(s): K43.0 - Incisional hernia with obstruction, without gangrene Status: Acute Assessment and Plan: s/p reduction and repair, doing well, radhika diet, home c po anagesia, Colace, f/u 2 wks DS: Summary Hospital Course Reason for hospitalization: incarcerated incisional hernia with small-bowel obstruction Hospital Course: The patient is a 71-year-old female that presented to the emergency department complaining of intractable nausea and vomiting and associated abdominal pain. The patient of note had a robotic assisted right inguinal hernia repaired on 12/24/2021. Workup in the emergency department, including imaging, was significant for incarcerated incisional hernia with small-bowel obstruction. Given these findings, the patient was emergently taken to the operating room. A diagnostic laparoscopy, reduction of incarcerated small bowel, primary repair incisional hernia was done on 12/28/2021, please see full operative report for details. Postop the patient did well and was transferred to the surgical floor. On postoperative day 1, the patient was doing quite well an NG was removed. The patient was started on a clear liquid diet which she tolerated without difficulty. On today, the patient has been able to tolerate a heart healthy diet and is passing flatus. She has been up and ambulating without issue and her pain is well controlled. She will be discharged home with routine postoperative care and follow-up with us in 2 weeks. Time Spent with Patient Time attestation: Total time spent providing and/or coordinating discharge services: Exam Const: General: cooperative, healthy appearing, comfortable and no acute distress Resp: Auscultation: clear to auscultation bilaterally Cardio: Rate: regular rate Rhythm: regular rhythm GI: Inspection: normal to inspection, distended and incision GI Palp: No abdominal tenderness, Yes Soft to palpation, No Guarding due to palpation present (GI) and No Rigid due to palpation Discharge Plan Discharge Attending physician on discharge: Helen Barry Discharging Clinician: Helen Barry Anticipated Discharge Date/Time: 12/30/21 13:00 Patient Disposition: Home, Self-Care Activity: other - see discharge instructions Diet: as tolerated Wound Care Instructions: other - see discharge instructions Discharge Instructions: DISCHARGE INSTRUCTION SHEET FOR HERNIA, GALLBLADDER AND APPENDIX SURGERIES DR. BARRY PATIENT TO TAKE HOME 1. May shower in 24 hours, no soaking in bath x 2weeks. 2. Call office for: Wound increasingly painful or bleeding Vomiting Fever of greater than 101 degrees 3. If no bowel movement for three days, take 1 oz. (30 ml) Milk of Magnesia or MiraLax 17g 1 to 2 times daily. 4. No heavy lifting > 10-15 pounds x 6 weeks for hernia repairs and 2 weeks for laparoscopic cholecystectomy or appendectomy. 5. No driving for 3 days or while taking narcotic pain medications. 6. Ice to surgical site for 48 hours (30 min on, then 30 min off). 7. Up walking 10-30 minutes three times per day. 8. Resume previous home medications. 9. Follow-up 10-14 days in office for wound check or as previously scheduled. ([phone]) 10. Oral pain medications prescription to be sent to pharmacy. Take Tylenol 500mg every 6 hours and Ibuprofen 600mg every 6 hours for the first 2 days, then as needed. 11. NUTRITION: Start out by drinking fluids and increase your diet as tolerated. If you experience nausea, try dry toast, crackers, and 7-UP. If nausea or vomiting persists, contact your surgeon?s office. 12. Gallbladders-Low Fat Diet for 2 weeks (send care note of low fat diet) 13. Inguinal Her
== END 2021-12-30 12:35 | disposition home or self-care (01) | DRG 331 ==
LOC: ANHED 19:50 → ANHSURGERY 20:35 → ANH3MEDSUR 23:47
PROVIDERS: Admitting Provider Surgery; Emergency Provider General Practice; PCP Family Medicine; Visit Provider Surgery
PROC: 0DS84ZZ Reposition Small Intestine, Percutaneous Endoscopic Approach (ICD-10-PCS; CPT 49650; 2021-12-28 21:00)
DX: K43.0 Incisional hernia with obstruction, without gangrene (principal); J44.9 Chronic obstructive pulmonary disease, unspecified; I44.7 Left bundle-branch block, unspecified; M19.90 Unspecified osteoarthritis, unspecified site; E78.5 Hyperlipidemia, unspecified; K21.9 Gastro-esophageal reflux disease without esophagitis; F32.A Depression, unspecified; F41.9 Anxiety disorder, unspecified; Z86.718 Personal history of other venous thrombosis and embolism; Z79.82 Long term (current) use of aspirin; Z90.49 Acquired absence of other specified parts of digestive tract; Z95.0 Presence of cardiac pacemaker; Z90.710 Acquired absence of both cervix and uterus; Z90.722 Acquired absence of ovaries, bilateral; I10 Essential (primary) hypertension
CPT/HCPCS: 36415; 51701; 74177; 80053; 81001; 83690; 85025; 96361; 96374; 96375; 99285; A9270; J0131; J0330; J1100; J1650; J2060; J2405; J2543; J2704; J3010; J7030; J7120; Q9967

== ENCOUNTER 2022-01-06 10:07 | Outpatient (CLI) | payer MEDICARE, SELFPAY ==
--- NOTE | ~2022-01-06 | US_ITS ---
EXAMINATION: US venous doppler [facility] DATE: 01/06/2022 10:44 INDICATION: Localized lower limb edema. TECHNIQUE: Grayscale ultrasound images without and with compression and Doppler ultrasound images of the bilateral lower extremity veins were obtained. COMPARISON: Ultrasound 11/11/2020 FINDINGS: The visualized portions of right common femoral vein, profunda (deep) femoral vein, femoral vein, and greater saphenous vein outflow are patent. There is thrombus in right popliteal, a posterior tibial, and the peroneal veins. The visualized portions of left common femoral vein, profunda femoral vein, femoral vein, popliteal v ein, peroneal veins, posterior tibial veins, and greater saphenous vein outflow are patent. IMPRESSION: 1. Deep vein thrombosis involving right popliteal and posterior tibial and peroneal veins. I called this result to Casimiro Santamaria. Reviewed, dictated and finalized at location A. IMPRESSION: 1. Deep vein thrombosis involving right popliteal and posterior tibial and per gamble veins. I called this result to Casimiro Santamaria.
== END 2022-01-06 10:08 | disposition home or self-care (01) ==
LOC: ANHIMG 10:07
PROVIDERS: PCP Family Medicine; Visit Provider Physician Assistant
DX: R60.0 Localized edema (principal); I82.431 Acute embolism and thrombosis of right popliteal vein; I82.441 Acute embolism and thrombosis of right tibial vein; I82.451 Acute embolism and thrombosis of right peroneal vein
CPT/HCPCS: 93970

== ENCOUNTER 2022-07-08 09:31 | Outpatient (CLI) | payer MEDICARE, SELFPAY ==
--- NOTE | ~2022-07-08 | US_ITS ---
EXAMINATION:US venous doppler LE BI INDICATION:Follow-up right leg DVT TECHNIQUE: Multiple grayscale, color flow and Doppler images of the right and left lower extremity de ep venous systems were obtained and reviewed. COMPARISON:No prior studies for comparison. FINDINGS: The common femoral, superficial femoral and popliteal veins demonstrate normal respiratory variation, augmentation and compressibility. Color flow is also seen within the posterior tibial, pe roneal, greater saphenous and profunda veins. IMPRESSION: 1: No lower extremity deep venous thrombosis. Reviewed, dictated and finalized at location A. 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
== END 2022-07-08 09:32 | disposition home or self-care (01) ==
PROVIDERS: PCP Family Medicine; Visit Provider Physician Assistant
DX: I82.401 Acute embolism and thrombosis of unspecified deep veins of right lower extremity (principal); Z86.718 Personal history of other venous thrombosis and embolism
CPT/HCPCS: 93970

== ENCOUNTER 2022-09-04 09:15 | Outpatient (CLI) | payer MEDICARE, SELFPAY ==
--- NOTE | ~2022-09-04 | MM_ITS ---
EXAMINATION: MM screening grant BI w julia HISTORY: Screening TECHNIQUE: Craniocaudal and mediolateral oblique 3-D tomosynthesis images were obtained and synthetic 2-D images were generated. CAD analysis was submitted and interpreted. COMPARISON: Comparison to multiple prior studies sequentially, with oldest reviewed study dated 02/19. BREAST PARENCHYMAL COMPOSITION: There are scattered areas of fibroglandular density. FINDINGS: There is no evidence of suspicious mass, calcification, or architectural distortion to sugg est malignancy in either breast. There has been no suspicious interval change. IMPRESSION: 1. No mammographic evidence of malignancy. 2. Recommend routine screening mammography in one year. BI-RADS Category 1: Negative Reviewed, dictated and finalized at location A. 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
== END 2022-09-04 09:16 | disposition home or self-care (01) ==
LOC: ANHIMG 09:17
PROVIDERS: PCP Family Medicine; Visit Provider Family Medicine
DX: Z12.31 Encounter for screening mammogram for malignant neoplasm of breast (principal)
CPT/HCPCS: 77063; 77067

== ENCOUNTER 2022-11-02 14:08 | Inpatient (IN) | payer MEDICARE, SELFPAY ==
[2022-11-02] VITALS (21 sets, daily range): BP systolic 95–118; BP diastolic 48–91; PULSE 62–71; RESP 13–19; TEMP 36.4–36.6; O2SAT 78–100
--- NOTE | ~2022-11-02 | US_ITS ---
EXAMINATION: US abdomen limited DATE: 11/02/2022 17:57 INDICATION: Right upper quadrant pain, possible choledocholithiasis on CT TECHNIQUE: Multiple grayscale and Doppler ultrasound images of the abdomen were obtained. COMPARISON: None available FINDINGS: The head and body of the pancreas are normal. The pancreatic tail is obscured by bowel gas. The liver is normal with normal echogenicity and echotexture. No surface nodularity. Normal hepatope sivakumar flow in the main portal vein. There is mild intrahepatic biliary dilatation. Multiple stones are present in the gallbladder. No gallbladder wall thickening or pericholecystic fluid identified The di lated common bile duct measures 8 mm. There was no sonographic Anthony sign. IMPRESSION: 1. Intrahepatic and extrahepatic biliary dilatation which may be due to choledocholithiasis although no definite common bile duct stones are sonographically detected. Reviewed, dictated and finalized at location F. IMPRESSION: 1. Intrahepatic and extrahepatic biliary dilatation which may be due to choledo cholithiasis although no definite common bile duct stones are sonographically d etected.
--- NOTE | ~2022-11-02 | XR_ITS ---
EXAMINATION: XR ERCP DATE: 11/03/2022 14:15 INDICATION: Choledocholithiasis TECHNIQUE: Nine intraoperative fluoroscopic images obtained during endoscopic retrograde cholangiopan creatography (ERCP) are submitted for review. Total fluoroscopic time was 158.8 seconds. COMPARISON: None. FINDINGS: Fluoroscopic images demonstrate retrograde opacification of a dilated common bile duct and dilated intrahepatic ducts and balloon sweep of the common bile duct. Please refer to procedure note for full details. IMPRESSION: 1. Intrahepatic and extrahepatic biliary dilatation with balloon sweep of the common bile duct. Higinio mendoza refer to the ERCP procedure note for additional details. Reviewed, dictated and finalized at location F. IMPRESSION: 1. Intrahepatic and extrahepatic biliary dilatation with balloon sweep of the c ommon bile duct. Please refer to the ERCP procedure note for additional details .
--- NOTE | ~2022-11-02 | XR_ITS ---
EXAMINATION: XR chest 2V DATE: 11/02/2022 14:54 INDICATION: Chest pain TECHNIQUE: Frontal and lateral views of the chest are obtained COMPARISON: 11/10/2020 FINDINGS: There is mild atelectasis of the left lung base. No pleural effusion or pneumothorax. The c ardiomediastinal silhouette is normal. There is mild thoracic spondylosis. A dual-lead cardiac pacema ker of the right chest wall ends with leads in expected locations. IMPRESSION: 1. Mild atelectasis of the left lung base. Reviewed, dictated and finalized at location F.
--- NOTE | ~2022-11-02 | CT_ITS ---
EXAMINATION: CTA chest PE abdomen pel DATE: 11/02/2022 16:53 INDICATION: Chest pain and shortness of breath, abnormal liver function tests TECHNIQUE: Computed tomography angiography (CTA) of the chest was performed with 100 mL Omnipaque-350 intravenous contrast timed to evaluate the pulmonary arteries. Subsequent postcontrast images of the abdomen and pelvis are obtained. Coronal maximum intensity projection 3D-reconstructions were create d by the technologist. The dose-length product (DLP) was 1142.45 mGy-cm. Automated exposure control a nd iterative reconstruction technique were employed. COMPARISON: 12/28/2021 FINDINGS: CTA CHEST: The pulmonary arteries are well-opacified. No pulmonary embolism is identified. There is m ild dependent atelectasis. No pleural effusion or pneumothorax. Cardiomegaly is noted. There is mild right hilar lymphadenopathy, likely reactive. A dual-lead cardiac pacemaker of the right chest wall e nds with leads in expected locations. 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 ABDOMEN/PELVIS CT: There is intrahepatic and extrahepatic biliary dilatation. There appear to be ston es of the distal common bile duct. The liver, spleen, pancreas, and adrenal glands are normal. The ki dneys are unremarkable. A moderate volume of colonic stool is present. There is severe lumbar spondyl osis. IMPRESSION: 1. No pulmonary embolus. 2. Intrahepatic and extrahepatic biliary dilatation possibly related to choledocholithiasis. Reviewed, dictated and finalized at location F. IMPRESSION: 1. No pulmonary embolus. 2. Intrahepatic and extrahepatic biliary dilatation possibly related to choledo cholithiasis.
--- NOTE | 2022-11-02 14:10 | ECG_ITS ---
Measurements Intervals [place] Rate: 64 P: 49 GA: 176 QRS: -68 QRSD: 190 T: 79 QT: 492 QTc: 510 Interpretive Statements ATRIAL SENSE-ELECTRONIC VENTRICULAR PACEMAKER BASELINE ARTIFACT- I, II, III, AVR, AVL, V1, V6 NO FURTHER INTERPRETATION IS POSSIBLE ATYPICAL ECG COMPARED TO ECG 12/16/2021 10:40:43 NO SIGNIFICANT CHANGES Electronically Signed On 11-02-2022 14:15:32 CDT by Olvin Frausto D.O.
[2022-11-02 14:39] LABS: Basophils Percent Auto 0.3 % (0.2-1.2); Eosinophils Absolute Auto 0.1 K/mm3 (0-0.3); Eosinophils Percent Auto 0.6 % (0-4.4); Hematocrit 37.1 % (37.0-47.0); Hemoglobin 12.1 g/dL (12.0-15.0); Immature Granulocyte Absolute 0.04 K/mm3 (0.00-0.031); Immature Granulocyte Percent A 0.4 % (0-0.5); Lymphocytes Absolute Auto 0.85 K/mm3 (0.9-3.2); Lymphocytes Percent Auto 9.4 % (18.3-44.2); Mean Corpuscular HGB Conc 32.6 g/dl (32-36); Mean Corpuscular Hemoglobin 29.2 pg (26-34); Mean Corpuscular Volume 89.6 fl (80-100); Mean Platelet Volume 9.7 fl (7.4-10.4); Monocytes Absolute Auto 0.4 K/mm3 (0.1-0.6); Monocytes Percent Auto 4.5 % (2.6-8.5); Neutrophils Absolute Auto 7.6 K/mm3 (1.3-6.7); Neutrophils Percent Auto 84.8 % (45.5-73.1); Platelet Count Result 298 k/mm3 (150-375); Red Blood Count 4.14 M/mm3 (4.2-5.4); Red Cell Distribution Width 13.2 % (11.5-14.5)
[2022-11-02 14:47] LABS: Alanine Aminotransferase 208 U/L (6-35); Albumin Level 4.2 g/dL (3.5-5.1); Alkaline Phosphatase 143 U/L (38-126); Anion Gap 6 mmol/L (8-16); Aspartate Amino Transferase 498 U/L (14-36); Bilirubin,Total 1.5 mg/dL (0.2-1.3); Blood Urea Nitrogen 18 mg/dL (7-17); Calcium 9.1 mg/dL (8.4-10.2); Carbon Dioxide 31 mmol/L (22-30); Chloride 100 mmol/L (98-107); Estimated CRCL calculation 63 ml/min; Estimated Glomerular Filt Rate > 60; Glucose 109 mg/dL (65-110); Lipase 159 U/L (23-300); Potassium 3.5 mmol/L (3.4-5.0); Sodium 137 mmol/L (137-145)
[2022-11-02 14:49] LABS: INR 1.1; Prothrombin Time 13.3 Seconds (11.1-14.7)
[2022-11-02 14:50] LABS: Partial Thromboplastin Time 24.5 SECONDS (22.3-36.8)
[2022-11-02 14:58] LABS: Troponin I < 0.012 ng/mL (0.000-0.034)
--- NOTE | 2022-11-02 15:39 | PC.NURSE ---
Pt was shopping around 1030 today and started developing chest pain in her sternum. Pt states the pain started to radiate across her middle upper back. Pt states she does have a pacemaker. States the pain is made worse with a deep breath. States she was nauseous after the chest pain started but has since resolved. States she is SOB and some dizziness with exertion but resolve on their own while resting.
[2022-11-02] MEDS: ASPIRIN 81 MG CHEWABLE TABLET 324 MG PO (15:42)
--- NOTE | 2022-11-02 15:44 | PC.NURSE ---
States while the pain was starting she wore an apple watch to watch her heart rate. While walking her heart rate got to 120.
[2022-11-02] MEDS: SODIUM CHLORIDE 0.9% IV 1,000 ML 999 ML IV CONT ×2 (16:34→17:25)
[2022-11-02 16:45] LABS: Influenza A QL RT-PCR Negative (Negative); Influenza B QL RT-PCR Negative (Negative); SARS-CoV-2 RNA PCR Negative
--- NOTE | 2022-11-02 16:45 | ED.CHESTPAIN ---
HPI - Chest Pain General Chief Complaint: Chest Pain <Tianna Crisostomo PA-C - Last Filed: 11/02/22 19:25> Stated Complaint: Chest pain <Tianna Crisostomo PA-C - Last Filed: 11/02/22 19:25> Time Seen by Provider: 11/02/22 15:29 <Tianna Crisostomo PA-C - Last Filed: 11/02/22 19:25> Source: patient <Tianna Crisostomo PA-C - Last Filed: 11/02/22 19:25> Mode of arrival: ambulatory <Tianna Crisostomo PA-C - Last Filed: 11/02/22 19:25> Limitations: no limitations <Tianna Crisostomo PA-C - Last Filed: 11/02/22 19:25> History of Present Illness HPI narrative: Patient is a 72-year-old female who presents to the ED with report of chest and back pain. Patient reports she was grocery shopping at [facility] this morning when she developed pain in her midsternal and right-sided chest around 10:30 AM. Pain seems to radiate through to her back. Pain has been fairly constant since then. Patient went home where she then began to have pain in her upper abdomen and experienced nausea and vomiting, which prompted her presentation. Patient reports pain improved approx 30 minutes prior to my evaluation. She did also report having lightheadedness with ambulating and mild SOB. She denies any recent cough or cold sx's, fevers, urinary sx's, REED, syncope. Patient denies history of similar chest pain. She has Hx of HTN, HLD, DVT, and pacemaker, denies diabetes, smoking history. <Tianna Crisostomo PA-C - Last Filed: 11/02/22 19:25> Related Data Home Medications: Home Medications Medication Instructions Recorded Confirmed aspirin 81 mg chewable tablet 81 mg PO HS 06/14/19 05/25/22 multivitamin 1 tablet PO DAILY 06/14/19 05/25/22 ascorbic acid (vitamin C) 500 mg 500 mg PO DAILY 11/06/19 05/25/22 capsule calcium carbonate 600 mg-vitamin 2 tablet PO QAM 11/10/20 05/25/22 D3 5 mcg (200 unit) tablet glucosamine sulfate 1,000 mg tablet 1,000 mg PO DAILY 11/10/20 05/25/22 furosemide 20 mg tablet 20 mg PO QAM 05/14/21 05/25/22 gabapentin 300 mg capsule 300 mg PO QHS 05/14/21 05/25/22 carvedilol phosphate 80 mg 80 mg PO QAM 12/12/21 05/25/22 capsule,[id number] multiphase (Coreg CR) umeclidinium 62.5 mcg-vilanterol 1 inh QAM 12/12/21 05/25/22 25 mcg/actuation powdr for inhalation (Anoro Ellipta) <Tianna Crisostomo PA-C - Last Filed: 11/02/22 19:25> Allergies/Adverse Reactions: Allergies Allergy/AdvReac Type Severity Reaction Status Date / Time No Known Allergies Allergy Verified 05/25/22 09:23 <Tianna Crisostomo PA-C - Last Filed: 11/02/22 19:25> Review of Systems Review of Systems: CONSTITUTIONAL: Denies fever, chills, or sweats. ENT: Denies rhinorrhea, congestion, sore throat. CARDIOVASCULAR: See HPI. RESPIRATORY: See HPI. GASTROINTESTINAL: See HPI. GENITOURINARY: Denies dysuria or hematuria. SKIN: Denies rash or itching. MUSCULOSKELETAL: See HPI. NEUROLOGIC: See HPI. <Tianna Crisostomo PA-C - Last Filed: 11/02/22 19:25> All systems reviewed & are unremarkable except as noted in HPI and below <Tianna Crisostomo PA-C - Last Filed: 11/02/22 19:25> [facility]LY [facility] Past Medical History Medical History: Medical History Abnormal stress test Anxiety Chronic obstructive pulmonary disease Lifelong nonsmoker though she reports significant secondhand smoke exposure. Depression Dyslipidemia Gastroesophageal reflux disease History of cardiomyopathy Nonischemic cardiomyopathy with normalization of left ventricular function on medical therapy. History of deep vein thrombosis of lower extremity Hypertension Left bundle branch block Osteoarthritis <Tianna Crisostomo PA-C - Last Filed: 11/02/22 19:25> Surgical History Surgical History: Surgical History H/O inguinal hernia repair RIGHT ING HERNIA REPAIR w mesh jarrod
[2022-11-02] MEDS: SODIUM CHLORIDE 0.9% IV 1,000 ML 125 ML IV CONT (18:40)
[2022-11-02 18:41] LABS: Troponin I < 0.012 ng/mL (0.000-0.034)
[2022-11-02] MEDS: ONDANSETRON INJ 4 MG/2 ML VIAL IV PUSH (18:50)
[2022-11-02] MEDS: fentaNYL CITRATE INJ (*CRX) 100 MCG/2 ML VIAL 25 MCG IV PUSH (18:52)
--- NOTE | 2022-11-02 20:04 | PM.IMHP ---
H&P: HPI History of Present Illness Date/Time: 11/02/22 20:04 Chief Complaint: Right upper quadrant pain. Narrative: This is a 72-year-old female with past medical history significant for generalized anxiety disorder, chronic obstructive pulmonary disease, gastroesophageal reflux disease, cardiomyopathy, hypertension. Patient presents to the emergency room due to epigastric pain with radiation around to the back, patient rates the pain at 8/10 in intensity progressively got worse through the day, denies any nausea, vomiting, diarrhea, fevers, rigors, chills. Patient has been in her usual state of health up until this time she was doing grocery shopping at [employer]. Patient denies any hematemesis, melena, bright red blood per rectum, no weight loss. Preliminary workup was significant for. Upper quadrant ultrasound FINDINGS: The head and body of the pancreas are normal. The pancreatic tail is obscured by bowel gas. The liver is normal with normal echogenicity and echotexture. No surface nodularity. Normal hepatopetal flow in the main portal vein. There is mild intrahepatic biliary dilatation. Multiple stones are present in the gallbladder. No gallbladder wall thickening or pericholecystic fluid identified The dilated common bile duct measures 8 mm. There was no sonographic Anthony sign. ? IMPRESSION: 1. Intrahepatic and extrahepatic biliary dilatation which may be due to choledocholithiasis although no definite common bile duct stones are sonographically detected. CTA chest FINDINGS: CTA CHEST: The pulmonary arteries are well-opacified. No pulmonary embolism is identified. There is mild dependent atelectasis. No pleural effusion or pneumothorax. Cardiomegaly is noted. There is mild right hilar lymphadenopathy, likely reactive. A dual-lead cardiac pacemaker of the right chest wall ends with leads in expected locations. 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 ABDOMEN/PELVIS CT: There is intrahepatic and extrahepatic biliary dilatation. There appear to be stones of the distal common bile duct. The liver, spleen, pancreas, and adrenal glands are normal. The kidneys are unremarkable. A moderate volume of colonic stool is present. There is severe lumbar spondylosis. IMPRESSION: 1. No pulmonary embolus. 2. Intrahepatic and extrahepatic biliary dilatation possibly related to choledocholithiasis. Review of Systems Review of Systems: Epigastric pain and right upper quadrant pain Constitutional: Constitutional: Denies chills, Denies fatigue, Denies fever(s), Denies lethargy, Denies malaise and Denies weakness Eyes: Eyes: Denies change in vision ENT: Denies dysphagia and Denies odynophagia Cardiovascular: Cardiovascular: Denies chest pain, Denies leg edema, Denies lightheadedness and Denies palpitations Respiratory: Respiratory: Denies cough, Denies pain on inspiration and Denies dyspnea on exertion Gastrointestinal: Gastrointestinal: Reports abdominal pain, Denies dyspepsia, Denies heartburn, Denies diarrhea, Denies nausea and Denies vomiting Genitourinary: Genitourinary: Denies dysuria Musculoskeletal: Musculoskeletal: Denies back pain, Denies joint swelling and Denies muscle weakness Integumentary/Breasts: Skin/Breast: Denies rash Neurologic: Denies focal weakness and Denies Sensory deficit (Neuro) Psychiatric: Psychiatric: Reports no additional psychiatric complaints and Reports as per HPI Endocrine: Endocrine: Denies cold intolerance, Denies flushing, Denies heat intolerance, Denies polyphagia, Denies polydipsia and Denies palpitations Hematologic/Lymphatic: Hematologic/Lymphatic: Reports no additional hematologic/lymphatic complaints and Reports as per HPI Allergic/Immunologic: Allergic/Immunologic: Reports no additional allergic/immunologic complaints and Reports as per HPI [facility] Past Medical History Medical History Abnorm
--- NOTE | 2022-11-02 20:07 | PC.NURSE ---
Notified patient of her being moved to a room shortly.
[2022-11-02 21:24] LABS: Troponin I < 0.012 ng/mL (0.000-0.034)
--- NOTE | 2022-11-02 23:17 | ADMGEN ---
This patient, Reyna Ponce, was admitted to 3 [facility] Surg Room [id number]. Patient/family oriented to hospital policies and general routines including ID bracelet, bed and alarms, visiting hours, pain management, procedures, bathroom and other care routines, personal items, smoking policy, room service/diet, and visiting hours. Information on how to activate the Rapid Response Team has been discussed. Patient/Family are encouraged to report perceived risks to care and to ask questions if they do not understand what they are told or what they should do.
[2022-11-03] VITALS (12 sets, daily range): BP systolic 94–133; BP diastolic 49–71; PULSE 60–74; RESP 13–20; TEMP 35.9–36.8; O2SAT 94–100; BMI 32.4
[2022-11-03] MEDS: SODIUM CHLORIDE 0.9% IV 1,000 ML 125 ML IV CONT ×3 (02:31→20:16)
[2022-11-03] MEDS: HYDROmorphone HCL INJ (*CRX) 1 MG/ML SYR 0.5 MG IV PUSH (07:02)
--- NOTE | 2022-11-03 07:03 | WPDGICN ---
Assessment and Plan Assessment and plan (1) Choledocholithiasis: Code(s): K80.50 - Calculus of bile duct without cholangitis or cholecystitis without obstruction Status: Acute Assessment and Plan: CT scan reviewed. Reveals choledocholithiasis. ABDOMEN/PELVIS CT: There is intrahepatic and extrahepatic biliary dilatation. There appear to be stones of the distal common bile duct. The liver, spleen, pancreas, and adrenal glands are normal. The kidneys are unremarkable. A moderate volume of colonic stool is present. There is severe lumbar spondylosis I discussed with her the anatomy of the biliary system. I told her that ideally the common bile duct would be cleared of stones with endoscopic removal and that she could have a laparoscopic cholecystectomy. We discussed the alternate option of open surgery with common bile duct exploration. I explained that ERCP itself can result in pancreatitis because of the anatomy and irritation of the pancreatic duct with the complication rate of pancreatitis about 3%. Lesser possible complications include perforation or bleeding.. Furthermore, the stone itself if lodged distally in the duct can cause pancreatitis. So far her lipase is normal. She consents to having ERCP and prefers that route with a possible later cholecystectomy than to a having open surgery. (2) Transaminitis: Code(s): R74.01 - Elevation of levels of liver transaminase levels Status: Acute Assessment and Plan: AST is 498. ALT 208. Bilirubin 1.5 (3) Hyperbilirubinemia: Code(s): E80.6 - Other disorders of bilirubin metabolism Status: Acute Assessment and Plan: Bilirubin is only slightly elevated. She did indicate however that her urine was dark yesterday consistent with biliary obstruction. (4) History of deep vein thrombosis of lower extremity: Code(s): Z86.718 - Personal history of other venous thrombosis and embolism Status: Acute Assessment and Plan: She is not on anticoagulants at this time except she does take aspirin once daily. (5) Gastroesophageal reflux disease: Code(s): K21.9 - Gastro-esophageal reflux disease without esophagitis Status: Acute Assessment and Plan: She has been on Protonix for a while. She states that the symptoms she had with acid reflux are nothing similar to what she is experiencing now (6) COPD (chronic obstructive pulmonary disease): Code(s): J44.9 - Chronic obstructive pulmonary disease, unspecified Status: Acute GI Consult Note Consult date/time: 11/03/22 07:03 HPI: Reyna Ponce is a 72 year old female who presented to the emergency room yesterday evening with complaints of abdominal pain which began yesterday morning. It was accompanied by nausea. She had some dry heaves but nothing came up. The pain lasted through the day. This morning she is still having discomfort. His primarily in the back now. I should add that when she had the lower chest upper abdominal pain yesterday it did radiate across the back. She thinks she may have had 2 similar episodes in the last couple of months each lasting about 1 or 2 hours. there is no past history of liver disease. Her appetite has been good up until now she has had no gastrointestinal issues in the past. She does have a history of cardiomyopathy and has a pacemaker. She suffers from COPD, chronic anxiety, and hypertension. She has not had fever with this. Review of Systems Review of Systems: All systems reviewed & are unremarkable except as noted in HPI and below PMFSH Past Medical History Medical History Abnormal stress test Anxiety Chronic obstructive pulmonary disease Lifelong nonsmoker though she reports significant secondhand smoke exposure. Depression Dyslipidemia Gastroesophageal reflux disease History of cardiomyopathy Nonischemic cardiomyopathy with normalization of
[2022-11-03 09:47] LABS: Lipase 24586 U/L (23-300)
[2022-11-03] MEDS: UMECLIDINIUM/VILANTEROL 62.5-25 MCG ELLIPTA 1 PUFF INHALATION (10:01)
--- NOTE | 2022-11-03 10:16 | PM.CNGS ---
Assessment and Plan Assessment and plan (1) Cholelithiasis: Code(s): K80.20 - Calculus of gallbladder without cholecystitis without obstruction Status: Acute Assessment and Plan: Possible choledocholithiasis on CTA chest/abdomen/pelvis with elevated LFTs. RUQ US showed multiple gallstones in the otherwise normal appearing gallbladder. She is scheduled for an ERCP this afternoon. Discussed with the patient that an interval laparoscopic cholecystectomy would be indicated with choledocholithiasis. Description of the procedure, risks, benefits, expected outcomes, and expected recovery were discussed with the patient. We discussed the risks of bile leak and bile duct injury, liver/bowel injury, bleeding, and infection. All questions were answered. We will wait for the ERCP results and follow along to see how she tolerates the procedure before deciding on timing of the cholecystectomy. (2) Choledocholithiasis: Code(s): K80.50 - Calculus of bile duct without cholangitis or cholecystitis without obstruction Status: Acute Assessment and Plan: CTA suggesting intra and extrahepatic biliary dilatation with possible distal common duct stones. She also has a mildly elevated total bilirubin that could suggest a common duct stone. GI following and planning ERCP today, will await results. (3) Elevated LFTs: Code(s): R79.89 - Other specified abnormal findings of blood chemistry Status: Acute Assessment and Plan: LFTs elevated with mildly elevated total bilirubin 1.5 on admission. Labs pending this morning. Likely related to common duct stone. GI following, ERCP scheduled today. See plan above. (4) COPD (chronic obstructive pulmonary disease): Code(s): J44.9 - Chronic obstructive pulmonary disease, unspecified Status: Acute (5) Hypertensive heart disease without congestive heart failure: Code(s): I11.9 - Hypertensive heart disease without heart failure Status: Acute (6) Presence of cardiac pacemaker: Code(s): Z95.0 - Presence of cardiac pacemaker Status: Acute Plan I have discussed the patient's case and plan of care with Dr. Siddiqi. Thank you for allowing us to see the patient in consultation and we will continue to follow along with you. History of Present Illness Consult details Consult date: 11/03/22 Reason for consult: gallstones (choledocholithiasis) Requesting physician: Tianna Crisostomo PA-C Narrative: This is a 72-year-old woman who presented to the emergency department yesterday with complaints of epigastric and chest pain. She reports a sudden onset of pain while walking through [employer] around 10:30 am yesterday morning. Her pain is located at the base of her sternum and epigastric area, which radiates to her mid back. She denies having anything to eat earlier in the day prior to her symptoms. She went home and tried to rest. She developed nausea and felt diaphoretic. No vomiting or fever. Her pain progressively worsened even after resting, so she presented to the ER for evaluation. Labs showed a WBC count 9,000, total bilirubin 1.5, AST 498, ALT 208, alk phos 143, and lipase normal. Troponins negative x 3. Chest x-ray showed mild atelectasis of the left lung base. CTA of the chest abdomen and pelvis showed no pulmonary embolus, intrahepatic and extrahepatic biliary dilation with possible stones in the distal common bile duct. Right upper quadrant abdominal ultrasound was subsequently ordered and showed multiple gallstones in the gallbladder, but no gallbladder wall thickening or pericholecystic fluid. Again seen is intrahepatic and extrahepatic biliary dilatation without definite common bile duct stones evident on ultrasound. She was admitted to the hospitalist service. GI and our service was consulted. She is now seen on the medical floor. She is currently NPO and scheduled for an ERCP this afternoon. She reports having similar episodes of pain on 2
--- NOTE | 2022-11-03 10:25 | PM.IMPN ---
Progress Note: A&P Assessment and Plan (1) Choledocholithiasis: Code(s): K80.50 - Calculus of bile duct without cholangitis or cholecystitis without obstruction Status: Acute Assessment and Plan: GI and general surgery consulted. NPO CT abdomen and pelvis intrahepatic and extrahepatic biliary dilatation possibly related to choledocholithiasis. Right upper quadrant ultrasound consistent with CT scan ERCP today Continue supportive care with IV fluids, antiemetics and analgesics. LFTs trending up. Daily CMP. Lipase rising from admission. Monitor for pancreatitis especially given recent ERCP (2) Hyperbilirubinemia: Code(s): E80.6 - Other disorders of bilirubin metabolism Status: Acute Assessment and Plan: Likely secondary to obstructing stone Continue to monitor. No jaundice. (3) Hypertension: Code(s): I10 - Essential (primary) hypertension Status: Chronic Assessment and Plan: Chronic, hold furosemide. Continue CR coreg as BP allows. Continue to monitor (4) Chronic obstructive pulmonary disease: Code(s): J44.9 - Chronic obstructive pulmonary disease, unspecified Status: Chronic Assessment and Plan: Not actively wheezing or in acute exacerbation. Continue Anoro inhaler (5) Gastro-esophageal reflux disease without esophagitis: Code(s): K21.9 - Gastro-esophageal reflux disease without esophagitis Status: Chronic Assessment and Plan: Chronic, continue PPI IV until able to take PO Plan CODE STATUS; FULL CODE Disposition: from home. Diet: NPO DVT: hold pharmacologic prophylaxis for ERCP and until surgery determined. Time Spent With Patient Time with patient: 25 - 35 minutes Subjective Date/time seen: 11/03/22 10:25 She reports epigastric pain, but denies nausea or emesis. last BM was yesterday and appeared normal in color and consistency. She has not eaten or drank anything since yesterday before coming to the ED and her mouth is dry. She is scheduled for ERCP this afternoon. No chest pain, palpitations, or SOB. Her urine is orange colored but she denies any other urinary complaints at this time. Review of Systems Review of Systems: All systems reviewed & are unremarkable except as noted in HPI and below Exam Narrative: General: No acute distress.? Sitting up in bed. neuro/Psych: Awake, alert and oriented x4 with clear speech. Pleasant and cooperative. No focal deficits. Skin: fair, warm, dry and intact without rashes or lesions. No open wounds. Fair turgor.?No jaundice of diaphoresis. HEENT: Normocephalic. Sclera is non-icteric. Pupils equal and round. Oral mucosa pink and moist. Neck: Supple. No JVD. Heart: S1 and S2 regular rate and rhythm. No murmurs, gallops, or rubs auscultated. Vpaced on telemetry. Chest: Respirations even and unlabored. Lung sounds are clear to auscultation without wheezes, rhonchi, or rales. Abdomen: Soft, round, nondistended and tender to palpation epigastric region.? Bowel sounds present in all 4 quadrants. Extremities:? No edema, erythema or calf tenderness. Grossly normal ROM. Radial and dorsalis pedis pulses +2 bilaterally. Objective Data Vital Signs Vital Signs: Vital Signs - 24 hr 11/02/22 14:11 11/02/22 19:22 11/02/22 19:24 Temperature 97.9 F 97.6 F Pulse Rate 64 65 Respiratory Rate 18 15 Blood Pressure 95/53 L 106/48 L Pulse Oximetry 100 100 99 Oxygen Delivery Room Air Room Air 11/02/22 17:02 11/02/22 17:15 11/02/22 17:30 Temperature Pulse Rate 66 62 62 Respiratory Rate 19 13 16 Blood Pressure Pulse Oximetry 100 100 100 Oxygen Delivery 11/02/22 17:45 11/02/22 18:00 11/02/22 18:21 Temperature Pulse Rate 70 Respiratory Rate 14 Blood Pressure Pulse Oximetry 99 100 94 Oxygen Delivery 11/02/22 18:30 11/02/22 18:31 11/02/22 18:45 Temperature Pulse Rate Respiratory Rate Blood Pressure 118/89 Pulse Oximetr
[2022-11-03 10:34] LABS: Basophils Percent Auto 0.4 % (0.2-1.2); Eosinophils Absolute Auto 0.1 K/mm3 (0-0.3); Hematocrit 32.9 % (37.0-47.0); Hemoglobin 10.6 g/dL (12.0-15.0); Immature Granulocyte Absolute 0.02 K/mm3 (0.00-0.031); Immature Granulocyte Percent A 0.4 % (0-0.5); Lymphocytes Absolute Auto 0.95 K/mm3 (0.9-3.2); Lymphocytes Percent Auto 19.3 % (18.3-44.2); Mean Corpuscular HGB Conc 32.2 g/dl (32-36); Mean Corpuscular Hemoglobin 29.7 pg (26-34); Mean Corpuscular Volume 92.2 fl (80-100); Mean Platelet Volume 10.3 fl (7.4-10.4); Monocytes Absolute Auto 0.5 K/mm3 (0.1-0.6); Monocytes Percent Auto 9.4 % (2.6-8.5); Neutrophils Absolute Auto 3.4 K/mm3 (1.3-6.7); Neutrophils Percent Auto 68.5 % (45.5-73.1); Platelet Count Result 242 k/mm3 (150-375); Red Blood Count 3.57 M/mm3 (4.2-5.4); Red Cell Distribution Width 13.4 % (11.5-14.5); White Blood Count 4.9 K/mm3 (4.5-10.0)
[2022-11-03 10:44] LABS: Alanine Aminotransferase 749 U/L (6-35); Albumin Level 2.9 g/dL (3.5-5.1); Alkaline Phosphatase 174 U/L (38-126); Anion Gap 3 mmol/L (8-16); Bilirubin,Total 2.7 mg/dL (0.2-1.3); Blood Urea Nitrogen 14 mg/dL (7-17); Calcium 8.2 mg/dL (8.4-10.2); Carbon Dioxide 26 mmol/L (22-30); Chloride 111 mmol/L (98-107); Estimated CRCL calculation 71 ml/min; Estimated Glomerular Filt Rate > 60; Glucose 101 mg/dL (65-110); Potassium 3.4 mmol/L (3.4-5.0); Sodium 140 mmol/L (137-145)
[2022-11-03 11:05] LABS: Aspartate Amino Transferase 1058 U/L (14-36)
[2022-11-03] MEDS: LACTATED RINGERS 1,000 ML 150 ML IV CONT (12:05)
--- NOTE | 2022-11-03 13:14 | WPDANESEPPF ---
Anes - Initial Pre Proc Eval Procedure: Operation Date: 11/03/22 13:00 Proposed Procedures p Endoscopic Retro Cholangiopancreatogram - Pasha Mace MD Date/Time: 11/03/22 13:14 Surgeon: Nestro Marlow MD Pre Op Diagnosis: Choledocholithiasis,Hyperbilirubinumia,Tranasminit Patient Data Age: 72 Gender: F Height: 1.65 m Weight: 88.5 kg Last Vital Signs Temp 97.2 F L 11/03/22 11:47 Pulse 74 11/03/22 11:47 Resp 18 11/03/22 11:47 BP 112/54 L 11/03/22 11:47 Pulse Ox 99 11/03/22 11:47 O2 Del Method Room Air 11/03/22 11:47 Allergies Allergy/AdvReac Type Severity Reaction Status Date / Time No Known Allergies Allergy Verified 11/03/22 11:45 Home Medications Medication Instructions Recorded Confirmed Type aspirin 81 mg chewable tablet 81 mg PO HS 06/14/19 11/02/22 History multivitamin 1 tablet PO DAILY 06/14/19 11/02/22 History ascorbic acid (vitamin C) 500 mg 500 mg PO DAILY 11/06/19 11/02/22 History capsule calcium carbonate 600 mg-vitamin 1 tablet PO QAM 11/10/20 11/02/22 History D3 5 mcg (200 unit) tablet glucosamine sulfate 1,000 mg tablet 1,000 mg PO DAILY 11/10/20 11/02/22 History furosemide 20 mg tablet 40 mg PO QAM 05/14/21 11/02/22 History carvedilol phosphate 80 mg 80 mg PO QAM 12/12/21 11/02/22 History capsule,[id number] multiphase (Coreg CR) umeclidinium 62.5 mcg-vilanterol 1 inh inhalation QAM 12/12/21 11/02/22 History 25 mcg/actuation powdr for inhalation (Anoro Ellipta) pantoprazole 40 mg tablet,delayed 40 mg PO QAM #90 tabs 03/12/22 11/02/22 Rx release alprazolam 0.25 mg tablet 0.25 mg PO DAILY PRN Anxiety #30 07/27/22 11/02/22 Rx tabs atorvastatin 40 mg tablet 40 mg PO QAM #90 tabs 09/25/22 11/02/22 Rx losartan 25 mg tablet 25 mg PO QAM #90 tabs 09/25/22 11/02/22 Rx acetaminophen 500 mg tablet 1,000 mg PO Q6H PRN Pain (Scale 11/02/22 11/02/22 History (Tylenol Extra Strength) Score 1-3) duloxetine 60 mg capsule,delayed 60 mg PO DAILY 11/02/22 11/02/22 History release ibuprofen 200 mg tablet 200 mg PO Q6H PRN Pain (Scale 11/02/22 11/02/22 History Score 4-6) Laboratory Tests 11/02/22 11/02/22 11/02/22 14:20 14:20 14:20 WBC 9.0 K/mm3 K/mm3 (4.5-10.0) RBC 4.14 M/mm3 L M/mm3 (4.2-5.4) Hgb 12.1 g/dL g/dL (12.0-15.0) Hct 37.1 % % (37.0-47.0) MCV 89.6 fl fl (80-100) MCH 29.2 pg pg (26-34) MCHC 32.6 g/dl g/dl (32-36) RDW 13.2 % % (11.5-14.5) Plt Count 298 k/mm3 k/mm3 (150-375) MPV 9.7 fl fl (7.4-10.4) Immature Gran % (Auto) 0.4 % % (0-0.5) Neut % (Auto) 84.8 % H % (45.5-73.1) Lymph % (Auto) 9.4 % L % (18.3-44.2) [place] % (Auto) 4.5 % % (2.6-8.5) Eos % (Auto) 0.6 % % (0-4.4) Baso % (Auto) 0.3 % % (0.2-1.2) Lymph # (Auto) 0.85 K/mm3 L K/mm3 (0.9-3.2) [place] # (Auto) 0.4 K/mm3 K/mm3 (0.1-0.6) Eos # (Auto) 0.1 K/mm3 K/mm3 (0-0.3) Baso # (Auto) 0.0 K/mm3 K/mm3 (0.0-0.1) Abs Immat Gran (auto) 0.04 K/mm3 H K/mm3 (0.00-0.031) Absolute Neuts (auto) 7.6 K/mm3 H K/mm3 (1.3-6.7) Absolute Nucleated RBC 0.0 K/mm3 K/mm3 (0.0-0.012) Nucleated RBC % 0.0 % % (0.0-0.2) PT 13.3 Seconds Seconds (11.1-14.7) INR 1.1 APTT 24.5 SECONDS SECONDS (22.3-36.8) Sodium 137 mmol/L mmol/L (137-145) Potassium 3.5 mmol/L mmol/L (3.4-5.0) Chloride 100 mmol/L mmol/L (98-107) Carbon Dioxide 31 mmol/L H mmol/L (22-30) Anion Gap 6 mmol/L L mmol/L (8-16) BUN 18 mg/dL H mg/dL (7-17) Creatinine 0.80 mg/dL mg/dL (0.7-1.0) Estim Creat Clear Calc 63 ml/min ml/min Estimated GFR > 60 (59 - ) Glucose 109 mg/dL mg/dL (65-110) Calcium
[2022-11-03] MEDS: INDOMETHACIN 50 MG SUPP.RECT RECTAL (13:28)
[2022-11-04] VITALS (13 sets, daily range): BP systolic 118–147; BP diastolic 61–78; PULSE 58–73; RESP 10–18; TEMP 36–36.6; O2SAT 92–100
[2022-11-04] MEDS: SODIUM CHLORIDE 0.9% IV 1,000 ML 125 ML IV CONT (04:44)
[2022-11-04 06:23] LABS: Basophils Percent Auto 0.2 % (0.2-1.2); Hematocrit 32.3 % (37.0-47.0); Hemoglobin 10.3 g/dL (12.0-15.0); Immature Granulocyte Absolute 0.03 K/mm3 (0.00-0.031); Immature Granulocyte Percent A 0.5 % (0-0.5); Lymphocytes Absolute Auto 1.08 K/mm3 (0.9-3.2); Lymphocytes Percent Auto 16.6 % (18.3-44.2); Mean Corpuscular HGB Conc 31.9 g/dl (32-36); Mean Platelet Volume 9.8 fl (7.4-10.4); Monocytes Absolute Auto 0.4 K/mm3 (0.1-0.6); Monocytes Percent Auto 6.3 % (2.6-8.5); Neutrophils Percent Auto 76.4 % (45.5-73.1); Platelet Count Result 244 k/mm3 (150-375); Red Blood Count 3.55 M/mm3 (4.2-5.4); Red Cell Distribution Width 13.5 % (11.5-14.5); White Blood Count 6.5 K/mm3 (4.5-10.0)
[2022-11-04 06:36] LABS: Alanine Aminotransferase 577 U/L (6-35); Albumin Level 2.9 g/dL (3.5-5.1); Alkaline Phosphatase 200 U/L (38-126); Anion Gap 4 mmol/L (8-16); Aspartate Amino Transferase 569 U/L (14-36); Bilirubin,Total 1.1 mg/dL (0.2-1.3); Blood Urea Nitrogen 12 mg/dL (7-17); Carbon Dioxide 26 mmol/L (22-30); Chloride 109 mmol/L (98-107); Estimated CRCL calculation 71 ml/min; Estimated Glomerular Filt Rate > 60; Glucose 102 mg/dL (65-110); Sodium 139 mmol/L (137-145)
[2022-11-04 06:43] LABS: Lipase 2665 U/L (23-300); Potassium 3.1 mmol/L (3.4-5.0)
--- NOTE | 2022-11-04 07:02 | WPDGIPROGNO ---
Progress Note: A&P Assessment and Plan (1) Choledocholithiasis: Code(s): K80.50 - Calculus of bile duct without cholangitis or cholecystitis without obstruction Status: Acute Assessment and Plan: CT scan reviewed. Reveals choledocholithiasis. ABDOMEN/PELVIS CT: There is intrahepatic and extrahepatic biliary dilatation. There appear to be stones of the distal common bile duct. The liver, spleen, pancreas, and adrenal glands are normal. The kidneys are unremarkable. A moderate volume of colonic stool is present. There is severe lumbar spondylosis I discussed with her the anatomy of the biliary system. I told her that ideally the common bile duct would be cleared of stones with endoscopic removal and that she could have a laparoscopic cholecystectomy. We discussed the alternate option of open surgery with common bile duct exploration. I explained that ERCP itself can result in pancreatitis because of the anatomy and irritation of the pancreatic duct with the complication rate of pancreatitis about 3%. Lesser possible complications include perforation or bleeding.. Furthermore, the stone itself if lodged distally in the duct can cause pancreatitis. So far her lipase is normal. She consents to having ERCP and prefers that route with a possible later cholecystectomy than to a having open surgery. 11/04/2022 yesterday morning lipase jumped to 24,000. ERCP did reveal multiple black stones that were removed from the common bile duct. (2) Transaminitis: Code(s): R74.01 - Elevation of levels of liver transaminase levels Status: Deleted Assessment and Plan: AST is 498. ALT 208. Bilirubin 1.5 11/04/2022 AST has jumped to over 1000 yesterday. Now it is down to 569 (3) Hyperbilirubinemia: Code(s): E80.6 - Other disorders of bilirubin metabolism Status: Acute Assessment and Plan: Bilirubin is only slightly elevated. She did indicate however that her urine was dark yesterday consistent with biliary obstruction. bilirubin today is back to normal indicating complete clearance of common bile duct. (4) History of deep vein thrombosis of lower extremity: Code(s): Z86.718 - Personal history of other venous thrombosis and embolism Status: Acute Assessment and Plan: She is not on anticoagulants at this time except she does take aspirin once daily. (5) Gastroesophageal reflux disease: Code(s): K21.9 - Gastro-esophageal reflux disease without esophagitis Status: Acute Assessment and Plan: She has been on Protonix for a while. She states that the symptoms she had with acid reflux are nothing similar to what she is experiencing now (6) COPD (chronic obstructive pulmonary disease): Code(s): J44.9 - Chronic obstructive pulmonary disease, unspecified Status: Acute (7) Cholelithiasis: Code(s): K80.20 - Calculus of gallbladder without cholecystitis without obstruction Status: Acute Assessment and Plan: is planning laparoscopic cholecystectomy. Subjective Date/time seen: 11/04/22 07:02 yesterday we found multiple stones in her common bile duct that were removed. she states that she is only having minimal pain this morning. This is surprising given the fact that her lipase was greater than 24,000 yesterday morning. She tolerated liquid diet last night. She is NPO for possible cholecystectomy today. Exam Const: General: alert Orientation/consciousness: patient oriented x3 Resp: Auscultation: clear to auscultation bilaterally Cardio: Rhythm: regular rhythm GI: Inspection: normal to inspection Auscultation: normal bowel sounds Neuro: General: patient oriented x3 Objective Data Vital Signs Vital Signs: Vital Signs - 24 hr 11/03/22 11:02 11/03/22 08:00 11/03/22 11:47 Temperature 36.2 C L Pulse Rate 74 Respiratory Rate 18 Blood Pressure 112/59 L 112/54 L Pulse Oximetry 99 Oxygen
[2022-11-04] MEDS: UMECLIDINIUM/VILANTEROL 62.5-25 MCG ELLIPTA 1 PUFF INHALATION (08:54)
[2022-11-04] MEDS: PANTOPRAZOLE SODIUM IV 40 MG VIAL IV PUSH (09:39)
--- NOTE | 2022-11-04 10:27 | P.PNAN_ITS ---
Anes - Prog Note Post-Op Date/Time: 11/04/22 10:27 Cardiovascular status: normal Respiratory status: normal Airway patency: baseline Mental status: baseline Post-Op hydration status: normal Vital Signs: Last Vital Signs Temp 36.0 C L 11/04/22 06:00 Pulse 72 11/04/22 06:00 Resp 18 11/04/22 06:00 BP 132/72 11/04/22 06:00 Pulse Ox 100 11/04/22 06:00 O2 Del Method Room Air 11/03/22 15:20 O2 Flow Rate 6 11/03/22 14:30 Pain Score (VAS): 0/10 I/O: Intake & Output 11/03/22 11/04/22 11/04/22 23:59 07:59 15:59 Intake Total 1660 1100 Balance 1660 1100 Laboratory Tests 11/04/22 06:04 11/04/22 06:04 11/03/22 11/03/22 11/04/22 08:09 08:09 06:04 WBC 4.9 RBC 3.57 L Hgb 10.6 L Hct 32.9 L MCV 92.2 MCH 29.7 MCHC 32.2 RDW 13.4 Plt Count 242 MPV 10.3 Immature Gran % (Auto) 0.4 Neut % (Auto) 68.5 Lymph % (Auto) 19.3 [place] % (Auto) 9.4 H Eos % (Auto) 2.0 Baso % (Auto) 0.4 Lymph # (Auto) 0.95 [place] # (Auto) 0.5 Eos # (Auto) 0.1 Baso # (Auto) 0.0 Abs Immat Gran (auto) 0.02 Absolute Neuts (auto) 3.4 Absolute Nucleated RBC 0.0 Nucleated RBC % 0.0 Sodium 140 139 Potassium 3.4 3.1 L Chloride 111 H 109 H Carbon Dioxide 26 26 Anion Gap 3 L 4 L BUN 14 12 Creatinine 0.70 0.70 Estim Creat Clear Calc 71 71 Estimated GFR > 60 > 60 Glucose 101 102 Calcium 8.2 L 8.0 L Total Bilirubin 2.7 H 1.1 AST 1058 H 569 H ALT 749 H 577 H Alkaline Phosphatase 174 H 200 H Total Protein 5.0 L 5.0 L Albumin 2.9 L 2.9 L Lipase 2665 H 11/04/22 06:04 WBC 6.5 RBC 3.55 L Hgb 10.3 L Hct 32.3 L MCV 91.0 MCH 29.0 MCHC 31.9 L RDW 13.5 Plt Count 244 MPV 9.8 Immature Gran % (Auto) 0.5 Neut % (Auto) 76.4 H Lymph % (Auto) 16.6 L [place] % (Auto) 6.3 Eos % (Auto) 0.0 Baso % (Auto) 0.2 Lymph # (Auto) 1.08 [place] # (Auto) 0.4 Eos # (Auto) 0.0 Baso # (Auto) 0.0 Abs Immat Gran (auto) 0.03 Absolute Neuts (auto) 5.0 Absolute Nucleated RBC 0.0 Nucleated RBC % 0.0 Sodium Potassium Chloride Carbon Dioxide Anion Gap BUN Creatinine Estim Creat Clear Calc Estimated GFR Glucose Calcium Total Bilirubin AST ALT Alkaline Phosphatase Total Protein Albumin Lipase Post-procedural complaints: none Patient Feedback: Patient satisfied with anesthetic care.
--- NOTE | 2022-11-04 10:57 | WPDANESEPPF ---
Anes - Initial Pre Proc Eval Procedure: Operation Date: 11/03/22 13:00 Proposed Procedures p Endoscopic Retro Cholangiopancreatogram - Pasha Mace MD Operation Date: 11/04/22 11:30 Proposed Procedures p Laparoscopic Cholecystectomy, Possible Open - Ravi Siddiqi DO Date/Time: 11/04/22 10:57 Surgeon: Nestor Marlow MD Pre Op Diagnosis: Choledocholithiasis,Hyperbilirubinumia,Tranasminit Patient Data Age: 72 Gender: F Height: 1.65 m Weight: 88.5 kg Last Vital Signs Temp 36.0 C L 11/04/22 06:00 Pulse 72 11/04/22 06:00 Resp 18 11/04/22 06:00 BP 132/72 11/04/22 06:00 Pulse Ox 100 11/04/22 06:00 O2 Del Method Room Air 11/03/22 15:20 O2 Flow Rate 6 11/03/22 14:30 Allergies Allergy/AdvReac Type Severity Reaction Status Date / Time No Known Allergies Allergy Verified 11/04/22 10:47 Home Medications Medication Instructions Recorded Confirmed Type aspirin 81 mg chewable tablet 81 mg PO HS 06/14/19 11/02/22 History multivitamin 1 tablet PO DAILY 06/14/19 11/02/22 History ascorbic acid (vitamin C) 500 mg 500 mg PO DAILY 11/06/19 11/02/22 History capsule calcium carbonate 600 mg-vitamin 1 tablet PO QAM 11/10/20 11/02/22 History D3 5 mcg (200 unit) tablet glucosamine sulfate 1,000 mg tablet 1,000 mg PO DAILY 11/10/20 11/02/22 History furosemide 20 mg tablet 40 mg PO QAM 05/14/21 11/02/22 History carvedilol phosphate 80 mg 80 mg PO QAM 12/12/21 11/02/22 History capsule,[id number] multiphase (Coreg CR) umeclidinium 62.5 mcg-vilanterol 1 inh inhalation QAM 12/12/21 11/02/22 History 25 mcg/actuation powdr for inhalation (Anoro Ellipta) pantoprazole 40 mg tablet,delayed 40 mg PO QAM #90 tabs 03/12/22 11/02/22 Rx release alprazolam 0.25 mg tablet 0.25 mg PO DAILY PRN Anxiety #30 07/27/22 11/02/22 Rx tabs atorvastatin 40 mg tablet 40 mg PO QAM #90 tabs 09/25/22 11/02/22 Rx losartan 25 mg tablet 25 mg PO QAM #90 tabs 09/25/22 11/02/22 Rx acetaminophen 500 mg tablet 1,000 mg PO Q6H PRN Pain (Scale 11/02/22 11/02/22 History (Tylenol Extra Strength) Score 1-3) duloxetine 60 mg capsule,delayed 60 mg PO DAILY 11/02/22 11/02/22 History release ibuprofen 200 mg tablet 200 mg PO Q6H PRN Pain (Scale 11/02/22 11/02/22 History Score 4-6) Laboratory Tests 11/03/22 11/04/22 11/04/22 08:09 06:04 06:04 WBC 6.5 K/mm3 K/mm3 (4.5-10.0) RBC 3.55 M/mm3 L M/mm3 (4.2-5.4) Hgb 10.3 g/dL L g/dL (12.0-15.0) Hct 32.3 % L % (37.0-47.0) MCV 91.0 fl fl (80-100) MCH 29.0 pg pg (26-34) MCHC 31.9 g/dl L g/dl (32-36) RDW 13.5 % % (11.5-14.5) Plt Count 244 k/mm3 k/mm3 (150-375) MPV 9.8 fl fl (7.4-10.4) Immature Gran % (Auto) 0.5 % % (0-0.5) Neut % (Auto) 76.4 % H % (45.5-73.1) Lymph % (Auto) 16.6 % L % (18.3-44.2) [place] % (Auto) 6.3 % % (2.6-8.5) Eos % (Auto) 0.0 % % (0-4.4) Baso % (Auto) 0.2 % % (0.2-1.2) Lymph # (Auto) 1.08 K/mm3 K/mm3 (0.9-3.2) [place] # (Auto) 0.4 K/mm3 K/mm3 (0.1-0.6) Eos # (Auto) 0.0 K/mm3 K/mm3 (0-0.3) Baso # (Auto) 0.0 K/mm3 K/mm3 (0.0-0.1) Abs Immat Gran (auto) 0.03 K/mm3 K/mm3 (0.00-0.031) Absolute Neuts (auto) 5.0 K/mm3 K/mm3 (1.3-6.7) Absolute Nucleated RBC 0.0 K/mm3 K/mm3 (0.0-0.012) Nucleated RBC % 0.0 % % (0.0-0.2) Sodium 140 mmol/L mmol/L 139 mmol/L mmol/L (137-145) (137-145) Potassium 3.4 mmol/L mmol/L 3.1 mmol/L L mmol/L (3.4-5.0) (3.4-5.0) Chloride 111 mmol/L H mmol/L 109 mmol/L H mmol/L (98-107) (98-107) Carbon Dioxide 26 mmol/L mmol/L 26 mmol/L mmol/L (22-30) (22-30) Anion Gap 3 mmol/L L mmol/L 4 mmol/L L mmol/L (8-16) (8-16) BUN 14 mg/dL mg/dL 12 mg/dL mg/dL (7-17) (7-17) Cre
[2022-11-04] MEDS: LACTATED RINGERS 1,000 ML 30 ML IV CONT (11:00)
--- NOTE | 2022-11-04 11:11 | WPDHPUPDATE1 ---
History and Physical Update Update Date/Time: 11/04/22 11:11 History and Physical has been reviewed, including an updated exam of the patient. There are NO changes in the patient's condition. Risks, benefits, and alternatives have been discussed and questions answered. Patient agrees to proceed with procedure.
[2022-11-04] MEDS: ceFAZolin 2 GM/D5W 50 ML 2 GM/50 ML BAG IVPB (11:22)
[2022-11-04] MEDS: BUPIVACAINE/EPINEPHRINE 0.5% 50 ML VIAL 30 ML INFILTRATE (11:52)
--- NOTE | 2022-11-04 12:27 | W.PM.PROC2 ---
Procedure Note - Detailed Date of Procedure 11/04/22 Pre-op Diagnosis Choledocholithiasis,Hyperbilirubinumia,Tranasminit Post-op Diagnosis Same Procedure Performed Laparoscopic Cholecystectomy Surgeon Ravi Siddiqi, DO Anesthesia General and Local (0.5% bupivacaine) Indications This is a 72-year-old woman who presented to the emergency department 2 days ago with epigastric pain radiating up to her chest. She was noted to have elevated liver enzymes and pancreatic enzymes and CT showed evidence of dilated common bile duct. She underwent ERCP yesterday and had successful stone extraction. Her liver enzymes and pancreatic enzymes have improved. Symptoms have improved significantly. Discussions were made with the patient about treatment options and decision was made to proceed with laparoscopic cholecystectomy, possible open. Findings Laparoscopic cholecystectomy was performed. The patient did have a few pericholecystic adhesions. The cystic duct appeared normal in size. No other significant abnormalities were noted. The gallbladder was removed and sent to the lab for pathology. Description of Procedure Procedure as well as risks, benefits, and alternatives were discussed with patient. Written consent was obtained and placed in chart prior to procedure. The patient was brought back to surgical suite. Patient was placed in supine position on operating table. Time-out was done to confirm patient and procedure. Patient was then intubated by the anesthesia department. Abdomen was prepped and draped in sterile fashion using chlorhexidine prep. 0.5% bupivacaine with epinephrine was infiltrated at each site of incision. A 5 millimeter incision was made near the umbilicus, and a 5 millimeter Optiview trocar was advanced through the abdominal layers under direct visualization. Once inside the abdominal cavity, carbon dioxide was insufflated to create a pneumoperitoneum. The camera was inserted and the abdomen was inspected. No immediate abnormalities were identified. The patient was placed in reverse Trendelenburg position and rotated slightly to the left. An 11 millimeter incision was made in the subxiphoid region, and an 11 millimeter trocar was inserted under direct visualization. Two 5 millimeter incisions were made in the right upper quadrant, and two 5 millimeter trocars were inserted under direct visualization. The gallbladder was identified and grasped at the fundus and retracted superiorly. It was then grasped at the infundibulum retracted laterally. Careful dissection around the neck of the gallbladder was performed using blunt dissection with a [place] grasper and hook electrocautery. The cystic duct was identified, and a window was created behind it. The cystic artery was also identified and a window was created behind it. The critical view of safety was identified, visualizing the cystic duct running directly into the neck of the gallbladder, and the cystic artery running directly into the wall of the gallbladder. A 5 millimeter clip bankruptcy judge was then used to place 2 clips proximally and 1 clip distally on both the cystic duct and cystic artery. They were then both transected using endoscopic scissors. Once safely away from the dori hepatitis, the gallbladder was dissected free from the liver bed using hook electrocautery. Hemostasis was achieved along the way. The gallbladder was removed completely and then removed through the subxiphoid port. The liver bed was then inspected. Hemostasis appeared adequate, and our clips appeared secure. The area was gently irrigated with sterile saline. No other abnormalities were seen. The patient was flattened out in bed, and 1 final inspection was made around the abdominal cavity. The subxiphoid port was removed, and a Santosh Emelia cone was used to approximate the fascia with an 0-Vicryl simple interrupted suture. The remaining ports were then removed under direct visualization, the camera w
[2022-11-04] MEDS: POTASSIUM CHLORIDE 20 MEQ PACKET (FOR LIQUID) 60 MEQ PO (15:58)
--- NOTE | 2022-11-04 16:13 | PM.IMPN ---
Progress Note: A&P Assessment and Plan (1) Choledocholithiasis: Code(s): K80.50 - Calculus of bile duct without cholangitis or cholecystitis without obstruction Status: Acute Assessment and Plan: GI and general surgery consulted. CT abdomen and pelvis intrahepatic and extrahepatic biliary dilatation possibly related to choledocholithiasis. Right upper quadrant ultrasound consistent with CT scan ERCP 11/03 the revealed intrahepatic and extrahepatic biliary dilation with balloon sweep of the common bile duct Continue supportive care with IV fluids, antiemetics and analgesics. LFTs trending up. Daily CMP. Lipase rising from admission. Monitor for pancreatitis especially given recent ERCP 11/04/2022 patient underwent cholecystectomy in doing well postoperatively. (2) Hyperbilirubinemia: Code(s): E80.6 - Other disorders of bilirubin metabolism Status: Acute Assessment and Plan: Likely secondary to obstructing stone Continue to monitor. No jaundice. (3) Hypertension: Code(s): I10 - Essential (primary) hypertension Status: Chronic Assessment and Plan: Chronic, hold furosemide. Continue CR coreg as BP allows. Continue to monitor (4) Chronic obstructive pulmonary disease: Code(s): J44.9 - Chronic obstructive pulmonary disease, unspecified Status: Chronic Assessment and Plan: Not actively wheezing or in acute exacerbation. Continue Anoro inhaler (5) Gastro-esophageal reflux disease without esophagitis: Code(s): K21.9 - Gastro-esophageal reflux disease without esophagitis Status: Chronic Assessment and Plan: Chronic, continue PPI IV until able to take PO Plan CODE STATUS; FULL CODE Disposition: from home. Diet: NPO DVT: hold pharmacologic prophylaxis for ERCP and until surgery determined. Subjective Date/time seen: 11/04/22 16:13 Interval history: Very pleasant patient postop day 0 cholecystectomy. Patient is in minimal pain and doing well. She is going to advanced diet as tolerated. She has no complaints at this time and is currently icing her abdomen. Review of Systems Review of Systems: All systems reviewed & are unremarkable except as noted in HPI and below Exam Narrative: GENERAL: Comfortable, no acute distress HENMT: moist mucous membranes EYES: EOM intact b/l NECK: no lymphadenopathy RESPIRATORY: clear to auscultation CARDIO: RRR GI: soft, nontender, bowel sounds present , incision site healing well with minimal bruising SKIN: no rashes EXTREMITIES: no edema, redness or tenderness Objective Data Vital Signs Vital Signs: Vital Signs - 24 hr 11/03/22 21:51 11/04/22 06:00 11/04/22 08:00 Temperature 97.4 F L 96.8 F L Pulse Rate 69 72 Respiratory Rate 18 18 Blood Pressure 122/65 132/72 Pulse Oximetry 98 100 Oxygen Delivery Room Air Oxygen Flow Rate 11/04/22 12:28 11/04/22 12:40 11/04/22 12:55 Temperature 97.4 F L Pulse Rate 73 60 60 Respiratory Rate 12 10 L 10 L Blood Pressure 147/78 H 134/68 129/73 Pulse Oximetry 100 100 100 Oxygen Delivery Simple Face Mask Simple Face Mask Simple Face Mask Oxygen Flow Rate 8 8 8 11/04/22 13:10 11/04/22 13:25 Temperature Pulse Rate 67 60 Respiratory Rate 12 12 Blood Pressure 131/68 128/61 Pulse Oximetry 93 92 Oxygen Delivery Room Air Room Air Oxygen Flow Rate Intake/Output Intake/Output: Intake & Output 11/01/22 11/02/22 11/03/22 11/04/22 23:59 23:59 23:59 23:59 Intake Total 1999 3659 1949 Output Total 0 0 Balance 1999 3659 1949 Meds/Results Medications: Active Medications Generic Name Dose Route Start Last Admin Trade Name Freq PRN Reason Stop Dose Admin Hydrocodone Bitart/Acetaminophen 1 tab 11/04/22 13:41 Hydrocodone/Acetaminophen (*Crx) 5-325 Mg Tablet PO Q4H PRN Pain Rated 4-6 Hydrocodone Bitart/Acetaminophen 1 tab 11/04/22 1
[2022-11-04] MEDS: HYDROcodone/acetaminophen (*CRX) 7.5-325 MG TABLET 1 TAB PO ×2 (16:41→21:54)
[2022-11-04] MEDS: ENOXAPARIN 30 MG/0.3 ML SYRINGE SUB-Q (21:51)
[2022-11-05 03:26] VITALS: BP 125/75; PULSE 77; RESP 18; TEMP 36.1; O2SAT 98
[2022-11-05] MEDS: HYDROcodone/acetaminophen (*CRX) 7.5-325 MG TABLET 1 TAB PO (04:14)
[2022-11-05 06:26] LABS: Basophils Percent Auto 0.4 % (0.2-1.2); Eosinophils Percent Auto 0.1 % (0-4.4); Immature Granulocyte Absolute 0.02 K/mm3 (0.00-0.031); Immature Granulocyte Percent A 0.3 % (0-0.5); Lymphocytes Absolute Auto 1.37 K/mm3 (0.9-3.2); Lymphocytes Percent Auto 20.2 % (18.3-44.2); Mean Corpuscular HGB Conc 31.3 g/dl (32-36); Mean Corpuscular Hemoglobin 29.3 pg (26-34); Mean Corpuscular Volume 93.8 fl (80-100); Mean Platelet Volume 9.8 fl (7.4-10.4); Monocytes Absolute Auto 0.4 K/mm3 (0.1-0.6); Monocytes Percent Auto 5.9 % (2.6-8.5); Neutrophils Percent Auto 73.1 % (45.5-73.1); Platelet Count Result 218 k/mm3 (150-375); Red Blood Count 3.41 M/mm3 (4.2-5.4); Red Cell Distribution Width 13.8 % (11.5-14.5); White Blood Count 6.8 K/mm3 (4.5-10.0)
[2022-11-05 06:57] LABS: Alanine Aminotransferase 357 U/L (6-35); Alkaline Phosphatase 175 U/L (38-126); Anion Gap 4 mmol/L (8-16); Aspartate Amino Transferase 268 U/L (14-36); Bilirubin,Total 0.7 mg/dL (0.2-1.3); Blood Urea Nitrogen 10 mg/dL (7-17); CRP 2.2 mg/dL (<1.0); Calcium 8.2 mg/dL (8.4-10.2); Carbon Dioxide 25 mmol/L (22-30); Chloride 107 mmol/L (98-107); Estimated CRCL calculation 81 ml/min; Estimated Glomerular Filt Rate > 60; Glucose 88 mg/dL (65-110); Lipase 208 U/L (23-300); Magnesium 1.9 mg/dL (1.6-2.3); Potassium 3.5 mmol/L (3.4-5.0); Sodium 136 mmol/L (137-145)
[2022-11-05 08:28] VITALS: PULSE 76
[2022-11-05] MEDS: PANTOPRAZOLE SODIUM IV 40 MG VIAL IV PUSH (08:29)
[2022-11-05] MEDS: LOSARTAN POTASSIUM 25 MG TABLET PO (08:30)
[2022-11-05] MEDS: ENOXAPARIN 30 MG/0.3 ML SYRINGE SUB-Q (08:30)
[2022-11-05] MEDS: DULoxetine HCL 60 MG CAPSULE.DR PO (08:30)
[2022-11-05] MEDS: UMECLIDINIUM/VILANTEROL 62.5-25 MCG ELLIPTA 1 PUFF INHALATION (08:51)
--- NOTE | 2022-11-05 09:49 | P.PNAN_ITS ---
Anes - Prog Note Post-Op Date/Time: 11/05/22 09:49 Cardiovascular status: normal Respiratory status: normal Airway patency: baseline Mental status: baseline Post-Op hydration status: normal Vital Signs: Last Vital Signs Temp 36.1 C L 11/05/22 03:26 Pulse 76 11/05/22 08:28 Resp 18 11/05/22 03:26 BP 125/75 11/05/22 03:26 Pulse Ox 98 11/05/22 03:26 O2 Del Method Room Air 11/05/22 08:00 O2 Flow Rate 8 11/04/22 12:55 Pain Score (VAS): 10/16 I/O: Intake & Output 11/04/22 11/05/22 11/05/22 23:59 07:59 15:59 Intake Total 480 350 Output Total 500 Balance -20 350 Laboratory Tests 11/05/22 06:10 11/05/22 06:10 11/05/22 11/05/22 06:10 06:10 WBC 6.8 RBC 3.41 L Hgb 10.0 L Hct 32.0 L MCV 93.8 MCH 29.3 MCHC 31.3 L RDW 13.8 Plt Count 218 MPV 9.8 Immature Gran % (Auto) 0.3 Neut % (Auto) 73.1 Lymph % (Auto) 20.2 [place] % (Auto) 5.9 Eos % (Auto) 0.1 Baso % (Auto) 0.4 Lymph # (Auto) 1.37 [place] # (Auto) 0.4 Eos # (Auto) 0.0 Baso # (Auto) 0.0 Abs Immat Gran (auto) 0.02 Absolute Neuts (auto) 5.0 Absolute Nucleated RBC 0.0 Nucleated RBC % 0.0 Sodium 136 L Potassium 3.5 Chloride 107 Carbon Dioxide 25 Anion Gap 4 L BUN 10 Creatinine 0.60 L Estim Creat Clear Calc 81 Estimated GFR > 60 Glucose 88 Calcium 8.2 L Magnesium 1.9 Total Bilirubin 0.7 AST 268 H ALT 357 H Alkaline Phosphatase 175 H C-Reactive Protein 2.2 H Total Protein 6.0 L Albumin 3.0 L Lipase 208 Post-procedural complaints: none Patient Feedback: Patient satisfied with anesthetic care.
--- NOTE | 2022-11-05 12:14 | PM.PNGS ---
Progress Note: A&P Assessment and Plan (1) Cholelithiasis: Code(s): K80.20 - Calculus of gallbladder without cholecystitis without obstruction Status: Acute Assessment and Plan: OK to discharge from surgical standpoint. Will give Eliquis x 2 weeks to prevent recurrent DVT Discharge instructions discussed with patient Follow up in office in 2 weeks. (2) Elevated LFTs: Code(s): R79.89 - Other specified abnormal findings of blood chemistry Status: Acute (3) Choledocholithiasis: Code(s): K80.50 - Calculus of bile duct without cholangitis or cholecystitis without obstruction Status: Acute Subjective Subjective Date/Time Seen: 11/05/22 12:14 Interval history: Doing well. Tolerating diet. Pain controlled. No nausea/vomiting. Exam GI: Inspection: incision (intact with glue) GI Palp: Yes Soft to palpation and Yes Tenderness to palpation present (GI) (incisional) Objective Data Vital Signs Vital Signs: Vital Signs - 24 hr 11/04/22 12:28 11/04/22 12:40 11/04/22 12:55 Temperature 36.3 C L Pulse Rate 73 60 60 Respiratory Rate 12 10 L 10 L Blood Pressure 147/78 H 134/68 129/73 Pulse Oximetry 100 100 100 Oxygen Delivery Simple Face Mask Simple Face Mask Simple Face Mask Oxygen Flow Rate 8 8 8 11/04/22 13:10 11/04/22 13:25 11/04/22 13:41 Temperature 36.4 C Pulse Rate 67 60 58 L Respiratory Rate 12 12 17 Blood Pressure 131/68 128/61 129/64 Pulse Oximetry 93 92 97 Oxygen Delivery Room Air Room Air Oxygen Flow Rate 11/04/22 13:56 11/04/22 14:26 11/04/22 15:26 Temperature 36.6 C 36.4 C 36.6 C Pulse Rate 62 62 68 Respiratory Rate 17 18 18 Blood Pressure 130/64 127/66 140/70 Pulse Oximetry 98 98 98 Oxygen Delivery Oxygen Flow Rate 11/04/22 20:05 11/04/22 19:26 11/04/22 23:26 Temperature 36.4 C L 36.4 C L Pulse Rate 68 71 71 Respiratory Rate 18 18 18 Blood Pressure 118/64 118/64 Pulse Oximetry 98 96 96 Oxygen Delivery Room Air Oxygen Flow Rate 11/05/22 03:26 11/05/22 08:28 11/05/22 08:00 Temperature 36.1 C L Pulse Rate 77 76 Respiratory Rate 18 Blood Pressure 125/75 Pulse Oximetry 98 Oxygen Delivery Room Air Oxygen Flow Rate Intake/Output Intake/Output: Intake & Output 11/02/22 11/03/22 11/04/22 11/05/22 23:59 23:59 23:59 23:59 Intake Total 1999 3659 2430 850 Output Total 0 500 Balance 1999 3659 1930 850 Meds/Results Medications: Active Medications Generic Name Dose Route Start Last Admin Trade Name Freq PRN Reason Stop Dose Admin Hydrocodone Bitart/Acetaminophen 1 tab 11/04/22 13:41 Hydrocodone/Acetaminophen (*Crx) 5-325 Mg Tablet PO Q4H PRN Pain Rated 4-6 Hydrocodone Bitart/Acetaminophen 1 tab 11/04/22 13:41 11/05/22 04:14 Hydrocodone/Acetaminophen (*Crx) 7.5-325 Mg Tablet PO 1 tab Q4H PRN Administration Pain Rated 7-10 Alprazolam 0.25 mg 11/03/22 00:42 Alprazolam (*Crx) 0.25 Mg Tablet PO DAILY PRN Anxiety Carvedilol 80 mg 11/03/22 08:00 11/05/22 08:28 Carvedilol Cr 10 Mg Capsule PO 80 mg DAILY@0800 LAILA Administration Duloxetine HCl 60 mg 11/03/22 09:00 11/05/22 08:30 Duloxetine Hcl 60 Mg Capsule.Dr PO 60 mg DAILY LAILA Administration Enoxaparin Sodium 30 mg 11/04/22 21:00 11/05/22 08:30 Enoxaparin 30 Mg/0.3 Ml Syringe SUB-Q 30 mg Q12HR LAILA Administration Ibuprofen 600 mg 11/04/22 13:41 Ibuprofen 600 Mg Tablet PO Q6H PRN Pain Rated 1-3 Losartan Potassium 25 mg 11/03/22 09:00 11/05/22 08:30 Losartan Potassium 25 Mg Tablet PO 25 mg QAM LAILA Administration Morphine Sulfate 2 mg 11/04/22 13:41 Morphine Sulfate (*Crx) 2 Mg/Ml Inj IV PUSH Q2H PRN Pain Rated 4-6 Morphine Sulfate 4 mg 11/04/22 13:41 Morphine Sulfate (*Crx) 4 Mg/Ml Inj IV PUSH Q2H PRN Pain Rated 7-10 Ondansetron HCl 4 mg 11/02/22 18:22 11/02/22 18:50 Ondansetron Inj 4 Mg/2
--- NOTE | 2022-11-05 13:47 | PM.DS ---
DS: Admitting Diagnosis Discharge Date 11/05/22 Admitting Diagnosis choledocholithiasis DS: Discharge Diagnosis Discharge Diagnosis (1) Choledocholithiasis: Code(s): K80.50 - Calculus of bile duct without cholangitis or cholecystitis without obstruction Status: Acute Assessment and Plan: GI and general surgery consulted. CT abdomen and pelvis intrahepatic and extrahepatic biliary dilatation possibly related to choledocholithiasis. Right upper quadrant ultrasound consistent with CT scan ERCP 11/03 the revealed intrahepatic and extrahepatic biliary dilation with balloon sweep of the common bile duct Continue supportive care with IV fluids, antiemetics and analgesics. LFTs trending up. Daily CMP. Lipase rising from admission. Monitor for pancreatitis especially given recent ERCP 11/04/2022 patient underwent cholecystectomy in doing well postoperatively. 11/05/2022 patient advancing diet as tolerated planning for discharge home. (2) Hyperbilirubinemia: Code(s): E80.6 - Other disorders of bilirubin metabolism Status: Acute Assessment and Plan: Likely secondary to obstructing stone Continue to monitor. No jaundice. (3) Hypertension: Code(s): I10 - Essential (primary) hypertension Status: Chronic Assessment and Plan: Chronic, hold furosemide. Continue CR coreg as BP allows. Continue to monitor (4) Chronic obstructive pulmonary disease: Code(s): J44.9 - Chronic obstructive pulmonary disease, unspecified Status: Chronic Assessment and Plan: Not actively wheezing or in acute exacerbation. Continue Anoro inhaler (5) Gastro-esophageal reflux disease without esophagitis: Code(s): K21.9 - Gastro-esophageal reflux disease without esophagitis Status: Chronic Assessment and Plan: Chronic, continue PPI IV until able to take PO Plan CODE STATUS; FULL CODE Disposition: from home. Diet: NPO DVT: hold pharmacologic prophylaxis for ERCP and until surgery determined. DS: Summary Hospital Course Reason for hospitalization: Choledocholithiasis Hospital Course: This is a 72-year-old female with past medical history significant for COPD, GERD, cardiomyopathy and hypertension that presented to the ED on 11/02/2022 with chief complaint of epigastric pain with radiation to the back. Right upper quadrant ultrasound he revealed intrahepatic and extrahepatic biliary dilation which may be due to choledocholithiasis although no definite common bile duct stones are detected. CT abdomen pelvis negative for PE, intrahepatic and extrahepatic biliary dilation possibly related to choledocholithiasis. General surgery and GI were both consulted. On labs it was noted that patient had elevated liver enzymes with an AST of 4 98 and ALT of 208 and bilirubin of 1.5. GI scheduled ERCP did which reveal multiple Black stones that were removed from the common bile duct. Patient's lipase did elevate from admission after ERCP and this was monitor closely. Lipase has since come down. general surgery then planned for scheduled cholecystectomy on 11/04/2022 and patient tolerated this procedure well. Patient's diet was advanced postoperatively and she tolerated this diet well. Surgery has discharged the patient and due to the patient not having any other medical concerns she will be discharged home to follow-up with surgery in the office in 2 weeks. Patient does have history of DVT postoperatively that she will be given Eliquis for 2 weeks to prevent DVTs. Time Spent with Patient Time attestation: Total time spent providing and/or coordinating discharge services: Exam Narrative: GENERAL: Comfortable, no acute distress HENMT: moist mucous membranes EYES: EOM intact b/l NECK: no lymphadenopathy RESPIRATORY: clear to auscultation CARDIO: RRR GI: soft, nontender, bowel sounds present, incision site healing well with minima
== END 2022-11-05 15:05 | disposition home or self-care (01) | DRG 418 ==
LOC: ANHED 19:25 → ANH3MEDSUR 20:17
PROVIDERS: Emergency Medicine; Internal Medicine Gastroenterology; Nurse Practitioner Family; Surgery; Admitting Provider Internal Medicine; Emergency Provider Physician Assistant; PCP Family Medicine; Visit Provider Internal Medicine Critical Care Medicine
PROC: 0FC98ZZ Extirpation of Matter from Common Bile Duct, Via Natural or Artificial Opening Endoscopic (ICD-10-PCS; CPT 43260; principal; 2022-11-03 13:00)
PROC: 0FT44ZZ Resection of Gallbladder, Percutaneous Endoscopic Approach (ICD-10-PCS; CPT 47562; principal; 2022-11-04 11:30)
DX: K80.71 Calculus of gallbladder and bile duct without cholecystitis with obstruction (principal); I42.8 Other cardiomyopathies; Z20.822 Contact with and (suspected) exposure to COVID-19; J44.9 Chronic obstructive pulmonary disease, unspecified; I10 Essential (primary) hypertension; E80.6 Other disorders of bilirubin metabolism; K21.9 Gastro-esophageal reflux disease without esophagitis; E78.5 Hyperlipidemia, unspecified; M19.90 Unspecified osteoarthritis, unspecified site; F41.9 Anxiety disorder, unspecified; E66.9 Obesity, unspecified; Z68.32 Body mass index [BMI] 32.0-32.9, adult; Z86.718 Personal history of other venous thrombosis and embolism; Z90.49 Acquired absence of other specified parts of digestive tract; Z95.0 Presence of cardiac pacemaker; Z90.710 Acquired absence of both cervix and uterus; Z90.722 Acquired absence of ovaries, bilateral
CPT/HCPCS: 36415; 71046; 71275; 74177; 74329; 76705; 80053; 83690; 83735; 84484; 85025; 85610; 85730; 86140; 87636; 88304; 93005; 94640; 96361; 96374; 96375; 99285; A9270; C9113; G0378; J0330; J0690; J1100; J1170; J1650; J2001; J2370; J2405; J2704; J3010; J7030; J7120; Q9966; Q9967

== ENCOUNTER 2022-11-17 12:08 | Outpatient (CLI) | payer MEDICARE, SELFPAY ==
--- NOTE | ~2022-11-17 | XR_ITS ---
. EXAMINATION: XR chest 2V 11/17/2022 12:28 INDICATION: Cough. Pneumonia. PROCEDURE: PA and lateral views of the chest COMPARISON: Comparison to multiple prior studies sequentially, with oldest reviewed study dated 12/06. FINDINGS: The lungs are clear. The cardiomediastinal silhouette is within normal limits. There are no pleural effusions. There is no pneumothorax suspected. Bipolar pacemaker leads are in expected p osition. IMPRESSION: 1: NO ACUTE CARDIOPULMONARY DISEASE. Reviewed, dictated and finalized at location L.
== END 2022-11-17 12:09 | disposition home or self-care (01) ==
PROVIDERS: PCP Family Medicine; Visit Provider Physician Assistant
DX: R05.9 Cough, unspecified (principal); R06.02 Shortness of breath
CPT/HCPCS: 71046

== ENCOUNTER 2023-02-17 00:21 | Day surgery (SDC) | payer MEDICARE, SELFPAY ==
[2023-02-16 14:20] VITALS: BMI 32.5
[2023-02-17] VITALS (17 sets, daily range): BP systolic 113–144; BP diastolic 61–88; PULSE 70–71; RESP 14–18; TEMP 36.4–37.1; O2SAT 95–100; BMI 32.0
[2023-02-17 10:59] LABS: Basophils Absolute Auto 0.1 K/mm3 (0.0-0.1); Basophils Percent Auto 0.8 % (0.2-1.2); Eosinophils Absolute Auto 0.2 K/mm3 (0-0.3); Eosinophils Percent Auto 3.1 % (0-4.4); Hematocrit 40.6 % (37.0-47.0); Hemoglobin 13.2 g/dL (12.0-15.0); Immature Granulocyte Absolute 0.01 K/mm3 (0.00-0.031); Immature Granulocyte Percent A 0.1 % (0-0.5); Lymphocytes Percent Auto 28.7 % (18.3-44.2); Mean Corpuscular HGB Conc 32.5 g/dl (32-36); Mean Corpuscular Hemoglobin 28.6 pg (26-34); Mean Corpuscular Volume 87.9 fl (80-100); Mean Platelet Volume 9.5 fl (7.4-10.4); Monocytes Absolute Auto 0.5 K/mm3 (0.1-0.6); Monocytes Percent Auto 6.4 % (2.6-8.5); Neutrophils Absolute Auto 4.5 K/mm3 (1.3-6.7); Neutrophils Percent Auto 60.9 % (45.5-73.1); Platelet Count Result 307 k/mm3 (150-375); Red Blood Count 4.62 M/mm3 (4.2-5.4); Red Cell Distribution Width 15.2 % (11.5-14.5); White Blood Count 7.3 K/mm3 (4.5-10.0)
[2023-02-17] MEDS: SODIUM CHLORIDE 0.9% IV 500 ML 100 ML IV CONT (11:06)
[2023-02-17 11:10] LABS: INR 0.9; Prothrombin Time 12.8 Seconds (11.1-14.7)
--- NOTE | 2023-02-17 11:10 | SUR.PREOP ---
DR. MATHEW HERE TO BEDSIDE TO SEE PT PRE C.
--- NOTE | 2023-02-17 11:20 | WPDHPUPDATE1 ---
History and Physical Update Update Date/Time: 02/17/23 11:20 Patient with vague chest pressure at times, exertional fatigue, and abnormal stress test in 2020 which showed a fully reversible small mild anterior apical defect with an ejection fraction 65%. She has not responded well to medical therapy and is here for further evaluation, cardiac catheterization possible PCI. She does have a history of pacemaker, hypercholesterolemia, remote DVT. History and Physical has been reviewed, including an updated exam of the patient. There are NO changes in the patient's condition. Risks, benefits, and alternatives have been discussed and questions answered. Patient agrees to proceed with procedure.
--- NOTE | 2023-02-17 11:21 | WPDMODSED ---
Moderate Sedation Note-Pt Data Patient Data Diagnosis: Exertional fatigue, chest pressure, abnormal stress test. Present Complaint: 72-year-old female with history of pacemaker, who is pacemaker dependent, complaining of exertional fatigue, and some chest pressure at rest. History of DVT in 2021 and prior DVT. History of cardiomyopathy which has normalized with medications and biventricular pacemaker and. Stress test in 2020 showed a small mild but fully reversible anterior apical defect with apical hypokinesis. She has had progressive fatigue with exertion and we are evaluating her with cardiac catheterization for possible PCI /revascularization. Patient had hoped for radial approach but Sahil's test was not good, and checking her ulnar flow using oximetry showed quite poor ulnar flow so we will proceed with a traditional femoral approach. Procedure to be performed/Plan: Conscious sedation Left heart catheterization Possible PCI Allergies Allergy/AdvReac Type Severity Reaction Status Date / Time No Known Allergies Allergy Verified 02/16/23 14:15 Home Medications Medication Instructions Recorded Confirmed Type aspirin 81 mg chewable tablet 81 mg PO HS 06/14/19 02/17/23 History multivitamin 1 tablet PO DAILY 06/14/19 02/16/23 History ascorbic acid (vitamin C) 500 mg 500 mg PO DAILY 11/06/19 02/16/23 History capsule calcium carbonate 600 mg-vitamin 1 tablet PO QAM 11/10/20 02/16/23 History D3 5 mcg (200 unit) tablet glucosamine sulfate 1,000 mg tablet 1,000 mg PO DAILY 11/10/20 02/16/23 History furosemide 20 mg tablet 40 mg PO QAM 05/14/21 02/16/23 History umeclidinium 62.5 mcg-vilanterol 1 inh inhalation QAM 12/12/21 02/16/23 History 25 mcg/actuation powdr for inhalation (Anoro Ellipta) pantoprazole 40 mg tablet,delayed 40 mg PO QAM #90 tabs 03/12/22 02/17/23 Rx release alprazolam 0.25 mg tablet 0.25 mg PO DAILY PRN Anxiety #30 07/27/22 02/16/23 Rx tabs atorvastatin 40 mg tablet 40 mg PO QAM #90 tabs 09/25/22 02/17/23 Rx losartan 25 mg tablet 25 mg PO QAM #90 tabs 09/25/22 02/17/23 Rx duloxetine 60 mg capsule,delayed 60 mg PO DAILY 11/02/22 02/17/23 History release carvedilol phosphate 80 mg 80 mg PO QAM #90 caps 12/01/22 02/17/23 Rx capsule,[id number] multiphase (Coreg CR) potassium chloride 10 mEq 10 meq PO DAILY 01/13/23 02/16/23 History tablet,extended release Current Medications: Active Medications Sodium Chloride (Normal Saline Iv) 500 mls @ 100 mls/hr IV CONT .Q5H LAILA Last Admin: 02/17/23 11:06 Dose: 100 mls/hr Sedation/Anesthesia: No previous sedation/anesthesia problems (including family history). [facility] Past Medical History Medical History Abnormal stress test Anxiety Chronic obstructive pulmonary disease Lifelong nonsmoker though she reports significant secondhand smoke exposure. Depression Dyslipidemia Gastroesophageal reflux disease History of cardiomyopathy Nonischemic cardiomyopathy with normalization of left ventricular function on medical therapy. History of deep vein thrombosis of lower extremity Hypertension Left bundle branch block Osteoarthritis Surgical History Surgical History H/O inguinal hernia repair 12/24/21 - robotic-assisted laparoscopic right inguinal hernia repair History of appendectomy during [facility] History of bunionectomy History of cardiac pacemaker in situ Medtronic dual-chamber pacemaker inserted after patient developed complete heart block. History of hysterectomy with bilateral oophorectomy History of incisional hernia repair 12/28/22 - developed incarcerated port site incisional hernia 4 days post right inguinal hernia repair and subsequently had laparoscopic incisional hernia repair History of tonsillectomy Hx laparoscopic cholecystectomy 11/04/22 Family History Family History (Review
[2023-02-17 11:40] LABS: Anion Gap -1 mmol/L (8-16); Blood Urea Nitrogen 16 mg/dL (7-17); Calcium 8.9 mg/dL (8.4-10.2); Carbon Dioxide 32 mmol/L (22-30); Chloride 105 mmol/L (98-107); Estimated CRCL calculation 56 ml/min; Estimated Glomerular Filt Rate > 60; Glucose 83 mg/dL (65-110); Potassium 3.8 mmol/L (3.4-5.0); Sodium 136 mmol/L (137-145)
--- NOTE | 2023-02-17 12:50 | PM.OP ---
Procedure Note - Brief Procedure Note - Brief Date of procedure: 02/17/23 abnormal stress test,dyspnea on exertion,angina Procedure performed: Left heart catheterization Selective coronary angiography ventriculography Angiography of right common femoral artery Surgeon: Bety Venegas MD Findings: normal coronary arteries Akinesis of the distal anterior wall septum and apex. EF 35-40% Description of procedure: uneventful left heart catheterization Complications: No immediate complications Condition: Stable Disposition: Observation
--- NOTE | 2023-02-17 12:56 | WPDCARDPROC ---
Cardiac Cath Procedure Note Date of procedure:: 02/17/23 Performing physician:: Bety Venegas MD Indication:: Chest tightness suggestive of angina, exertional fatigue, abnormal stress test showing a small mildly reversible anterior apical defect. Brief clinical history:: ?72-year-old female with history of pacemaker, who is pacemaker dependent, complaining of exertional fatigue, and some chest pressure at rest.? History of DVT in 2021 and prior DVT.? History of cardiomyopathy which has normalized with medications.? Stress test in 2020 showed a small mild but fully reversible anterior apical defect with apical hypokinesis.? She has had progressive fatigue with exertion and we are evaluating her with cardiac catheterization for possible PCI /revascularization. Procedure Access site:: Procedure: 1. Conscious sedation 2. Left heart catheterization 3. Selective Coronary angiography 4. Left ventriculography 5. Angiography the right common femoral artery Estimated blood loss:: 5 cc Procedure note:: Site: Right femoral artery Catheters: 5 [place] arterial sheath, 5 [place] 4 cm right and left Sharri catheters, 5 [place] pigtail catheter Conscious sedation: The patient has no known prior history of adverse affects of conscious sedation. Oropharynx was clear. The patient is deemed a good candidate for conscious sedation. Conscious sedation began at: 1226 Conscious sedation ended at: 1243 Total conscious sedation time: 17 minutes Medications: Versed 1 mg, fentanyl 50 mcg IV push The patient had continuous hemodynamic monitoring, and was also continuously monitored by: Sara Marroquin RN The patient tolerated conscious sedation well. Detailed procedure: After informed consent the patient brought to the experimental machining lab manager and the right femoral area was prepped and draped in the usual fashion. After conscious sedation and local anesthesia the right femoral artery was punctured and cannulated with the arterial sheath. Selective Coronary angiography was performed with the coronary catheters in multiple projections. These were withdrawn. The pigtail catheter was advanced into the central circulation and left ventricle for pressure measurements and left ventriculography which was performed in the ALEXANDRE projection. angiography of the right common femoral artery is performed. The sheath was at the bifurcation. Later the arterial sheath was removed and hemostasis was obtained using local pressure. The patient tolerated the procedure well with no complications. Estimated blood loss was negligible. Findings:: Pressures: Left ventricular pressure 140/26 mmHg, aortic pressure 140/ 70 mmHg Right coronary artery: The right coronary artery was dominant and free of significant disease. Left coronary artery: The left main, Left anterior descending and circumflex vessels were widely patent and free of significant disease. There was some mild coronary calcification of the proximal Left anterior descending. Left ventriculography: Severe hypokinesis/ akinesis of the distal anteroseptal wall, distal inferior wall, and apex. Ejection fraction estimated to be 35-40%. This appeared to be somewhat of a takotsubo type cardiomyopathy, affecting the distal half Lower 1/3 of the ventricle. Conclusion:: Normal coronary arteries except for mild calcification of the proximal Left anterior descending. Left ventricular dysfunction as described above, ejection fraction 35-40%. Elevated left ventricular end-diastolic pressure RECOMMENDATION: Echo if one has not recently to re-evaluate ejection fraction Patient's cardiomyopathy may be due to chronic RV pacing and perhaps an upgrade to a biventricular pacemaker would be helpful. Follow-up with electrophysiology. Continue carvedilol Increase losartan to 50 mg daily (appears her insurance does not cover Entresto) Add spironolactone 25 mg daily Discontinue potassium BMP in 2 weeks
== END 2023-02-17 18:15 | disposition home or self-care (01) ==
PROVIDERS: PCP Family Medicine; Visit Provider Internal Medicine Cardiovascular Disease
PROC: 4A023N7 Measurement of Cardiac Sampling and Pressure, Left Heart, Percutaneous Approach (ICD-10-PCS; CPT 93452; principal; 2023-02-17 11:30)
DX: I25.10 Atherosclerotic heart disease of native coronary artery without angina pectoris (principal); R94.39 Abnormal result of other cardiovascular function study; R07.9 Chest pain, unspecified; I42.8 Other cardiomyopathies; Z95.0 Presence of cardiac pacemaker; J44.9 Chronic obstructive pulmonary disease, unspecified; E78.5 Hyperlipidemia, unspecified; K21.9 Gastro-esophageal reflux disease without esophagitis; I44.7 Left bundle-branch block, unspecified; F41.9 Anxiety disorder, unspecified; F32.A Depression, unspecified; Z86.718 Personal history of other venous thrombosis and embolism; Z79.82 Long term (current) use of aspirin; Z79.51 Long term (current) use of inhaled steroids
CPT/HCPCS: 36415; 80048; 85025; 85610; 93458; C1887; C1894; J1644; J2250; J3010; J7040

== ENCOUNTER 2023-03-19 12:23 | Outpatient (CLI) | payer MEDICARE, SELFPAY ==
--- NOTE | 2023-03-19 | ECHO_ITS ---
Patient Info Name: Reyna Ponce Age: 72 years : 1950 Gender: Female Ht: 65 in Wt: 193 lbs BSA: 2.04 m2 HR: 76 bpm BP: 113 / 84 mmHg Technical Quality: Good Exam Date: 03/19/2023 12:44 PM Exam Location: [facility] Patient Status: Outpatient Admit Date: 03/19/2023 Staff Ordering Physician: Bety Venegas MD Hepatology Physician: Araceli Castellon RDCS Attending Provider: Bety Venegas MD Referring Physician: Theo OTERO; Exam Type: CA echo limited w contrast Study Info Indications I42.0 - Dilated cardiomyopathy Limited two-dimensional transthoracic echocardiogram is performed with contrast. Contrast/Agitated Saline Contrast/Ag. Saline: Definity Amount: 3.00 ml Administered By: Araceli Castellon RDCS Existing IV Access: No New IV Access: Antecubital Space and Left Site Condition: IV removed, Site dressing applied and No extravasation Summary 1. Left ventricular chamber dimension is normal. 2. Left ventricular systolic function is normal, visually estimated at 60-65%. The left ventricular ejection fraction is measured at 63%. Left Ventricle Left ventricular chamber dimension is normal. Left ventricular systolic function is normal, visually estimated at 60-65%. The left ventricular ejection fraction is measured at 63%. There is no increased left ventricular wall thickness. Right Ventricle Linear artifact in right ventricle suggestive of catheter(s), pacemaker lead(s), or ICD lead(s). Right ventricular chamber dimension is normal. Right ventricular systolic function is normal. Left Atria Left atrial chamber dimension is normal. Right Atria Linear artifact in the right atrium suggestive of catheter(s), pacemaker lead(s), or ICD lead(s). Right atrial chamber dimension is normal. Ventricles Name Value Normal LV Dimensions 2D/MM IVS Diastolic Thickness (2D) 0.7 cm 0.6-1.0 LVID Diastole (2D) 4.7 cm 3.8-5.2 LVIW Diastolic Thickness (2D) 0.7 cm 0.6-0.9 LVID Systole (2D) 3.1 cm 2.2-3.5 LV Mass (2D Cubed) 109.77 g 67.00-162.00 LV Mass Index (2D Cubed) 54 g/m2 43-95 Relative Wall Thickness (2D) 0.32 LV Fractional Shortening/Ejection Fraction 2D/MM LV Fractional Shortening (2D) 34 % 27-45 LV EF (2D Teicholz) 63 % 54-74 LV Diastolic Volume (4C MOD) 101 ml LV EF (4C MOD) 62 % LV Diastolic Volume (2C MOD) 119 ml LV EF (2C MOD) 63 % LV Diastolic Volume (BP MOD) 109 ml 46-106 LV Diastolic Volume Index (BP MOD) 54 ml/m2 29-61 LV Systolic Volume (BP MOD) 41 ml 14-42 LV Systolic Volume Index (BP MOD) 20 ml/m2 8-24 LV EF (BP MOD) 63 % 54-74 LV Diastolic Length (4C) 7.5 cm LV Systolic Length (4C) 6.3 cm LV Stroke Volume (4C MOD) 63 ml Report Signatures Electronically signed by Genaro Blue MD on
[2023-03-19] MEDS: PERFLUTREN LIPID MICROSPHERES 1.5 ML VIAL DILUTED TO 10 ML TOTAL VOLUME IV PUSH (13:15)
== END 2023-03-19 12:24 | disposition home or self-care (01) ==
LOC: ANHCARD 12:24
PROVIDERS: PCP Family Medicine; Visit Provider Internal Medicine Cardiovascular Disease
DX: I42.0 Dilated cardiomyopathy (principal)
CPT/HCPCS: 93308; C8924; Q9957

== ENCOUNTER 2023-06-27 11:32 | Emergency (ER) | payer MEDICARE, SELFPAY ==
[2023-06-27 11:47] VITALS: BP 115/58; PULSE 72; RESP 18; TEMP 36.9; O2SAT 99
--- NOTE | 2023-06-27 12:36 | ED.GENADULT ---
HPI - General Adult General Chief complaint: Upper Respiratory Infection Stated complaint: exposed to COVID,sore throat,cough Source: patient Mode of arrival: ambulatory Limitations: no limitations History of Present Illness HPI narrative: Patient presents for evaluation of sick symptoms for the last 36 hours. Symptoms include headache, rhinorrhea, sore throat, and cough. No nausea, vomiting, diarrhea, fevers or chills. She took a home COVID test today which was positive. She has not been taking any medication for symptoms. She came in today because she was unfamiliar with guidelines pertaining to COVID. No recent sick contacts to her knowledge. She has an underlying history of COPD. Related Data Home Medications Medication Instructions Recorded Confirmed aspirin 81 mg chewable tablet 81 mg PO HS 06/14/19 06/27/23 multivitamin 1 tablet PO DAILY 06/14/19 06/27/23 ascorbic acid (vitamin C) 500 mg 500 mg PO DAILY 11/06/19 06/27/23 capsule calcium carbonate 600 mg-vitamin 1 tablet PO QAM 11/10/20 06/27/23 D3 5 mcg (200 unit) tablet glucosamine sulfate 1,000 mg tablet 1,000 mg PO DAILY 11/10/20 06/27/23 furosemide 20 mg tablet 40 mg PO QAM 05/14/21 06/27/23 umeclidinium 62.5 mcg-vilanterol 1 inh inhalation QAM 12/12/21 06/27/23 25 mcg/actuation powdr for inhalation (Anoro Ellipta) pantoprazole 40 mg tablet,delayed 40 mg PO QAM 05/25/23 06/27/23 release rosuvastatin 40 mg tablet 40 mg PO DAILY 05/25/23 06/27/23 Allergies Allergy/AdvReac Type Severity Reaction Status Date / Time No Known Allergies Allergy Verified 06/27/23 11:34 Review of Systems Review of Systems: CONSTITUTIONAL: Denies fever, chills, or sweats. EYES: Denies visual changes, redness, or discharge. ENT: Reports sore throat and rhinorrhea CARDIOVASCULAR: Denies chest pain, palpitations, or edema. RESPIRATORY: Reports cough. Denies SOB GASTROINTESTINAL: Denies abdominal pain, nausea, vomiting, or diarrhea. GENITOURINARY: Denies dysuria or hematuria. SKIN: Denies rash or itching. MUSCULOSKELETAL: Denies back pain, joint pain, or myalgia. NEUROLOGIC: Reports headache. Denies numbness, dizziness, or weakness. PSYCHIATRIC: Denies anxiety or depression. [facility] Past Medical History Medical History Abnormal stress test Anxiety Chronic obstructive pulmonary disease Lifelong nonsmoker though she reports significant secondhand smoke exposure. Depression Dyslipidemia Gastroesophageal reflux disease History of cardiomyopathy Nonischemic cardiomyopathy with normalization of left ventricular function on medical therapy. History of deep vein thrombosis of lower extremity Hypertension Left bundle branch block Osteoarthritis Surgical History Surgical History H/O inguinal hernia repair 12/24/21 - robotic-assisted laparoscopic right inguinal hernia repair History of appendectomy during [facility] History of bunionectomy History of cardiac pacemaker in situ Medtronic dual-chamber pacemaker inserted after patient developed complete heart block. History of hysterectomy with bilateral oophorectomy History of incisional hernia repair 12/28/22 - developed incarcerated port site incisional hernia 4 days post right inguinal hernia repair and subsequently had laparoscopic incisional hernia repair History of tonsillectomy Hx laparoscopic cholecystectomy 11/04/22 Family History Family History Father Hypertension Family history of elevated blood lipids Cerebrovascular accident Family history of lung cancer Mother Hypertension Family history of elevated blood lipids Family history of lung cancer Patient's mother is Grandparent Carcinoma of colon Sibling Patient's sister is in good health Patient's brother is in good health Social History Social His
== END 2023-06-27 12:42 | disposition home or self-care (01) ==
PROVIDERS: Emergency Provider Nurse Practitioner; PCP Family Medicine
DX: U07.1 COVID-19 (principal); J44.9 Chronic obstructive pulmonary disease, unspecified; E78.5 Hyperlipidemia, unspecified; K21.9 Gastro-esophageal reflux disease without esophagitis; I10 Essential (primary) hypertension; M19.90 Unspecified osteoarthritis, unspecified site; Z79.82 Long term (current) use of aspirin; I42.9 Cardiomyopathy, unspecified; Z86.718 Personal history of other venous thrombosis and embolism; Z95.0 Presence of cardiac pacemaker; F41.9 Anxiety disorder, unspecified
CPT/HCPCS: 87081; 87804; 87880; 99213; G0463

== ENCOUNTER 2024-04-14 19:23 | Emergency (ER) | payer MEDICARE, SELFPAY ==
--- NOTE | 2024-04-14 19:26 | ED.ANIMALBIT ---
HPI - Animal Bite General Chief Complaint: Wound/Laceration Stated Complaint: cat bites Time Seen by Provider: 04/14/24 19:25 Source: patient Mode of arrival: ambulatory Limitations: no limitations History of Present Illness HPI narrative: Reyna is a 73-year-old female patient presenting to the clinic today with complaints of a cat bite to her bilateral hands and bilateral wrist that occurred around 6:00 p.m. today. She reports that she has a 1-year-old cat at home and he was caught in a door and she was trying to assist him and he was distressed and bit her on her hands and wrists bilaterally. Bleeding is controlled. Last tetanus was in 2018. Cat is up-to-date on immunizations. She is not diabetic. She is not currently taking any blood thinners besides a baby aspirin daily Related Data Home Medications Medication Instructions Recorded Confirmed aspirin 81 mg chewable tablet 81 mg PO HS 06/14/19 04/14/24 multivitamin 1 tablet PO DAILY 06/14/19 04/14/24 ascorbic acid (vitamin C) 500 mg 500 mg PO DAILY 11/06/19 04/14/24 capsule calcium carbonate 600 mg-vitamin 1 tablet PO QAM 11/10/20 04/14/24 D3 5 mcg (200 unit) tablet glucosamine sulfate 1,000 mg tablet 1,000 mg PO DAILY 11/10/20 04/14/24 pantoprazole 40 mg tablet,delayed 40 mg PO QAM 05/25/23 04/14/24 release rosuvastatin 40 mg tablet 40 mg PO DAILY 05/25/23 04/14/24 furosemide 20 mg tablet 20 mg PO .COMPLEX 11/29/23 04/14/24 Allergies Allergy/AdvReac Type Severity Reaction Status Date / Time No Known Allergies Allergy Verified 04/14/24 19:29 Review of Systems Review of Systems: Pertinent positives per HPI. Patient denies any fever, chills, rash, headache, visual changes, dizziness, cough, runny nose, sore throat, shortness of breath, chest pain, palpitations, nausea, vomiting, diarrhea, constipation, abdominal pain, or any urinary issues. [facility] Past Medical History Medical History Abnormal stress test Anxiety Chronic obstructive pulmonary disease Lifelong nonsmoker though she reports significant secondhand smoke exposure. Depression Dyslipidemia Gastroesophageal reflux disease History of cardiomyopathy Nonischemic cardiomyopathy with normalization of left ventricular function on medical therapy. History of deep vein thrombosis of lower extremity Hypertension Left bundle branch block Osteoarthritis Surgical History Surgical History H/O inguinal hernia repair 12/24/21 - robotic-assisted laparoscopic right inguinal hernia repair History of appendectomy during [facility] History of bunionectomy History of cardiac pacemaker in situ Medtronic dual-chamber pacemaker inserted after patient developed complete heart block. History of hysterectomy with bilateral oophorectomy History of incisional hernia repair 12/28/22 - developed incarcerated port site incisional hernia 4 days post right inguinal hernia repair and subsequently had laparoscopic incisional hernia repair History of tonsillectomy Hx laparoscopic cholecystectomy 11/04/22 Family History Family History Father Hypertension Family history of elevated blood lipids Cerebrovascular accident Family history of lung cancer Mother Hypertension Family history of elevated blood lipids Family history of lung cancer Patient's mother is Grandparent Carcinoma of colon Sibling Patient's sister is in good health Patient's brother is in good health Social History Social History Social History: The patient lives in [place]. Her son and 2 granddaughters, age 9 and 11, live at home with her. 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 No alcohol, tobacco, or illicit substance use. She designates her brother Valentino Hammer, as her kelly
[2024-04-14 19:35] VITALS: BP 149/94; PULSE 85; RESP 16; TEMP 37.1; O2SAT 99
[2024-04-14] MEDS: TETANUS,DIPHTHERIA,AC PERTUSSIS ADULT (0.5 ML) BOOSTRIX IM (19:40)
== END 2024-04-14 19:53 | disposition home or self-care (01) ==
PROVIDERS: Emergency Provider Nurse Practitioner Family; PCP Family Medicine
DX: S61.512A Laceration without foreign body of left wrist, initial encounter (principal); S61.411A Laceration without foreign body of right hand, initial encounter; S61.432A Puncture wound without foreign body of left hand, initial encounter; S61.431A Puncture wound without foreign body of right hand, initial encounter; W55.01XA Bitten by cat, initial encounter; Z23 Encounter for immunization; J44.9 Chronic obstructive pulmonary disease, unspecified; I10 Essential (primary) hypertension; I42.9 Cardiomyopathy, unspecified; E78.5 Hyperlipidemia, unspecified; K21.9 Gastro-esophageal reflux disease without esophagitis; M19.90 Unspecified osteoarthritis, unspecified site; Z86.718 Personal history of other venous thrombosis and embolism; Z79.82 Long term (current) use of aspirin; Z95.0 Presence of cardiac pacemaker
CPT/HCPCS: 90471; 90715; 99213; G0463

== ENCOUNTER 2024-05-26 08:46 | Outpatient (CLI) | payer MEDICARE, SELFPAY ==
--- NOTE | ~2024-05-26 | MM_ITS ---
EXAMINATION: MM screening grant BI w julia HISTORY: Screening TECHNIQUE: Craniocaudal and mediolateral oblique 3-D tomosynthesis images were obtained and synthetic 2-D images were generated. CAD analysis was submitted and interpreted. COMPARISON: Comparison to multiple prior studies sequentially, with oldest reviewed study dated 03/06. BREAST PARENCHYMAL COMPOSITION: Not dense: There are scattered areas of fibroglandular density. FINDINGS: There is no evidence of suspicious mass, calcification, or architectural distortion to sugg est malignancy in either breast. There has been no suspicious interval change. IMPRESSION: 1. No mammographic evidence of malignancy. 2. Recommend routine screening mammography in one year. BI-RADS Category 1: Negative Reviewed, dictated and finalized at location B.
== END 2024-05-26 08:47 | disposition home or self-care (01) ==
PROVIDERS: PCP Family Medicine; Visit Provider Physician Assistant
DX: Z12.31 Encounter for screening mammogram for malignant neoplasm of breast (principal)
CPT/HCPCS: 77063; 77067

== ENCOUNTER 2024-07-10 08:30 | Outpatient (CLI) | payer MEDICARE, SELFPAY ==
--- NOTE | ~2024-07-10 | DEXA_ITS ---
? Bone Density Report? Name:? TELLY HYATT Patient ID:??? [id number] Age:? 74 Sex:? Female Ethnicity:? White Date of : 1950 Indication: postmenopausal; screening for osteoporosis; height loss; hysterectomy; Referring Provider: DAVE MARADIAGA Study: Bone densitometry was performed. Exam Date: July 10, 2024 Accession number: [id number] Bone Density: Region? BMD??? T-score? Z-score?? Classification AP Spine(L1-L4)? 1.101??? 0.5?2.7? Normal Femoral Neck (Left)? 0.743?? -1.0? 1.0? Normal Total Hip (Left)? 0.842?? -0.8? 0.8?Normal Femoral Neck (Right)? 0.699?? -1.4? 0.6? Osteopenia Total Hip (Right)? 0.809?? -1.1? 0.5? Osteopenia Femoral Neck Mean? 0.721?? -1.2? 0.8? Osteopenia Total Hip Mean? 0.825?? -1.0? 0.7? Normal World Health Organization criteria for BMD impression classify patients as: Normal (T-score at or above -1.0), Osteopenia (T-score between -1.0 and -2.5), or Osteoporosis (T-score at or below -2.5). 10-year Fracture Risk(1): Major Osteoporotic Fracture? 9.4% Hip Fracture? 1.3% Reported Risk Factors: [place] (), Neck BMD=0.699, BMI=33.1 (1) FRAX? Version 3.08. Fracture probability calculated for an untreated patient. Fracture probability may be lower if the patient has received treatment. Clinical Information Provided by Patient: Has used the following medications: Calcium, multi Has the following medical conditions: Hysterectomy Patient maximum height was 67. Menopause Age: 52 No regular weight bearing exercise Does not regularly consume dairy products Drinks caffeinated beverages Onset of menses at age 15 Number of children 2 Impression: The patient has low bone mass, based on the Right Femoral Neck T- score. Discussion: BONE DENSITY IS LOW AT ONE OR MORE SKELETAL SITES. This patient's lowest T-score is low at one or more skeletal sites.? It meets the World Health Organization's (WHO) criteria for ?low bone mass?? (T-score between -1.0 and -2.5).? The patient's 10-year risk of fracture as calculated by FRAX is less than the threshold where pharmacological therapy is recommended by the National Osteoporosis Foundation (NOF).? However, all treatment decisions require clinical judgment and consideration of individual patient factors, including patient preferences, comorbidities, previous drug use, risk factors not captured in the FRAX model (e.g., frailty, falls, vitamin D deficiency, increased bone turnover, interval significant decline in bone density) and possible under or overestimation of fracture risk by FRAX. The patient should follow a healthful lifestyle (good nutrition with adequate calcium and vitamin D, and appropriate weight-bearing exercise). Follow-Up: Consider repeating this study in 2 to 3 years to reassess this patient's status, or sooner if there is some new clinical indication. Reported by: DANICA on :02:00 AM. DANIEL
== END 2024-07-10 08:31 | disposition home or self-care (01) ==
LOC: CHSIMG 08:31
PROVIDERS: PCP Family Medicine; Visit Provider Family Medicine
DX: Z78.0 Asymptomatic menopausal state (principal); M85.89 Other specified disorders of bone density and structure, multiple sites
CPT/HCPCS: 77080

== ENCOUNTER 2024-07-13 09:00 | Outpatient (CLI) | payer MEDICARE, SELFPAY ==
--- NOTE | ~2024-07-13 | XR_ITS ---
AP view of the pelvis and AP and lateral views of the right hip Clinical history: Pain Findings: No acute fracture or dislocation is seen. Osseous alignment is anatomic. There is moderate degenerative change of the superior aspect of the right hip joint. Left hip joint intact. There is de generative spondylosis of the lower lumbar spine. There is moderate to advanced degenerative change o f the SI joints.. Soft tissues are unremarkable. Impression: Degenerative changes, as detailed above. No fracture or dislocation. Reviewed, dictated and finalized at location M. MENTATION CLERK Impression: Degenerative changes, as detailed above. No fracture or dislocation.
== END 2024-07-13 09:01 | disposition home or self-care (01) ==
PROVIDERS: PCP Family Medicine; Visit Provider Physician Assistant
DX: M16.11 Unilateral primary osteoarthritis, right hip (principal)
CPT/HCPCS: 73502

== ENCOUNTER 2024-09-12 08:36 | Emergency (ER) | payer MEDICARE, SELFPAY ==
[2024-09-12 08:48] VITALS: BP 119/69; PULSE 81; RESP 16; TEMP 36.8; O2SAT 96
--- NOTE | 2024-09-12 09:11 | ED.URI ---
HPI - URI/Sore Throat General Chief Complaint: Upper Respiratory Infection Stated Complaint: head pressure,cough, drainage Source: patient and RN notes reviewed Mode of arrival: ambulatory Limitations: no limitations History of Present Illness MD elicited complaint: cough and sore throat Related Data Home Medications ?Medication ?Instructions ?Recorded ?Confirmed ?Last Taken ?Type aspirin 81 mg chewable tablet 81 mg PO HS 06/14/19 09/12/24 02/16/23 History multivitamin 1 tablet PO DAILY 06/14/19 09/12/24 02/16/23 History ascorbic acid (vitamin C) 500 mg 500 mg PO DAILY 11/06/19 09/12/24 02/16/23 History capsule glucosamine sulfate 1,000 mg tablet 1,000 mg PO DAILY 11/10/20 09/12/24 02/16/23 History rosuvastatin 40 mg tablet 40 mg PO DAILY 05/25/23 09/12/24 Unknown History furosemide 20 mg tablet 20 mg PO .COMPLEX 11/29/23 09/12/24 Unknown History calcium 600 mg (as 2 tablet PO QAM 07/13/24 09/12/24 Unknown History carbonate)-vitamin D3 5 mcg (200 unit) tablet sacubitril 24 mg-valsartan 26 mg 1 tablet PO BID 09/12/24 09/12/24 Unknown History tablet (Entresto) Allergies Allergy/AdvReac Type Severity Reaction Status Date / Time No Known Allergies Allergy Verified 09/12/24 08:47 Review of Systems Review of Systems: CONSTITUTIONAL: Reports malaise EYES: Denies visual changes, redness, or discharge. ENT: Reports rhinorrhea, congestion. Denies sinus pain, otalgia and sore throat. CARDIOVASCULAR: Denies chest pain, palpitations, or edema. RESPIRATORY: Reports productive cough. Denies dyspnea. GASTROINTESTINAL: Denies abdominal pain, nausea, vomiting, diarrhea SKIN: Denies rash or itching. MUSCULOSKELETAL: Denies myalgia. NEUROLOGIC: Denies headache. All systems reviewed & are unremarkable except as noted in HPI and below PMFSH Past Medical History Medical History Abnormal stress test Anxiety Chronic obstructive pulmonary disease Lifelong nonsmoker though she reports significant secondhand smoke exposure. Depression Dyslipidemia Gastroesophageal reflux disease History of cardiomyopathy Nonischemic cardiomyopathy with normalization of left ventricular function on medical therapy. History of deep vein thrombosis of lower extremity Hypertension Left bundle branch block Osteoarthritis Surgical History Surgical History H/O inguinal hernia repair 12/24/21 - robotic-assisted laparoscopic right inguinal hernia repair History of appendectomy during [facility] History of bunionectomy History of cardiac pacemaker in situ Medtronic dual-chamber pacemaker inserted after patient developed complete heart block. History of hysterectomy with bilateral oophorectomy History of incisional hernia repair 12/28/22 - developed incarcerated port site incisional hernia 4 days post right inguinal hernia repair and subsequently had laparoscopic incisional hernia repair History of tonsillectomy Hx laparoscopic cholecystectomy 11/04/22 Family History Family History Father Hypertension Family history of elevated blood lipids Cerebrovascular accident Family history of lung cancer Mother Hypertension Family history of elevated blood lipids Family history of lung cancer Patient's mother is Grandparent Carcinoma of colon Sibling Patient's sister is in good health Patient's brother is in good health Social History Social History Social History: The patient lives in [place]. Her son and 2 granddaughters, age 9 and 11, live at home with her. 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 No alcohol, tobacco, or illicit substance use. She designates her brother Valentino Hammer, as her surrogate decision maker and she wishes to be a full code. 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 There is no relevant family history pertinent to the presenting complaint Exam Narrative: GENERAL: Nontoxic-appearing, well-nourished, and in no acute distress. HEAD: Normocephalic EYES: PERRLA, conjunctivae clear ENT: Nares clear. Mucous membranes moist. TM pearly kwon with dull light reflex bilaterally; no tragal tenderness. Oropharynx not erythematous without lesions. Tonsils not enlarged and without exudate, no drooling, no hoarseness, no trismus, uvula midline. NECK: Supple. No lymphadenopathy CHEST: Scattered rhonchi, otherwise Clear to auscultation, breath sounds equal. No wheezing, rales, or stridor. No respiratory distress, speaks in full sentences. HEART: Regular rate and rhythm. No murmur heard. SKIN: Warm, dry, no rash. NEURO: Alert and oriented x3. PSYCH: Normal mood and affect Course Course Emergency Course: Patient is aware of diagnosis, understands and agrees to treatment plan. Anticipatory guidance given. Patient agrees to follow-up as directed and is aware of reasons to seek care at the emergency department. Portions of this record may have been created with voice recognition software Level of Care: Express Care Visit Vital Signs Vital signs: Vital Signs Temperature 98.2 F 09/12/24 08:48 Pulse Rate 81 09/12/24 08:48 Respiratory Rate 16 09/12/24 08:48 Blood Pressure 119/69 09/12/24 08:48 Pulse Oximetry 96 09/12/24 08:48 Oxygen Delivery Room Air 09/12/24 08:48 Temperature 98.2 F 09/12/24 08:48 Pulse Rate 81 09/12/24 08:48 Respiratory Rate 16 09/12/24 08:48 Blood Pressure 119/69 09/12/24 08:48 Pulse Oximetry 96 09/12/24 08:48 Oxygen Delivery Room Air 09/12/24 08:48 Reviewed. MDM - URI/Sore Throat MDM Narrative Medical decision making narrative: Differential diagnosis considered: Gonzalez virus, strep pharyngitis, allergic rhinitis, upper respiratory tract infection, sinusitis, rhinosinusitis, nasopharyngitis. viral pharyngitis, otitis media, otitis externa, pneumonia, bronchitis, viral cough syndrome, viral syndrome, and influenza. Exam findings show no acute concerns or changes; patient is non-toxic appearing and is in no distress. Patient is appropriate for outpatient treatment and follow-up. Lab Data Attestation: I reviewed the patient's lab results. Critical Care Time Critical Care Time Critical Care Time: No Discharge Plan Discharge Clinical Impression: Acute exacerbation of chronic obstructive pulmonary disease Patient Disposition: Home, Self-Care Condition: Stable Instructions: Antibiotic Form, COPD (Chronic Obstructive Pulmonary Disease) (ED) Additional Instructions: Take medication as prescribed Recommend antihistamine such as Benadryl at night time and Zyrtec or Ashly during the day Use inhaler as needed for cough, wheezing, shortness of breath or chest tightness. Also, recommend symptomatic treatment includes: rest, fluids, and increase humidity of the air at home. Recommend Acetaminophen as directed on the bottle to reduce fever, pain, headache. Avoid smoking/second-hand smoke. Please schedule a follow-up visit with your personal physician for further evaluation and treatment within 3-5days. Including recheck and discussion of your blood pressure. If your symptoms persist, change or worsen significantly before you can contact your personal physician then please, without delay, go to the emergency department for further evaluation. Patient Language: Upper Sorbian Prescriptions: New azithromycin [Zithromax Z-Twin] 250 mg tablet See Rx Instructions .ROUTE .COMPLEX Qty: 6 0RF Rx Instructions: take 500 mg today (day 1), then 250 mg for 4 days (days 2-5) methylprednisolone [Medrol (Twin)] 4 mg tablets,dose pack See Rx Instructions .ROUTE .COMPLEX Qty: 21 0RF Rx Instructions: orally per package directions No Action sacubitril-valsartan [Entresto] 24-26 mg tablet 1 tablet PO BID multivitamin Tablet 1 tablet PO DAILY aspirin 81 mg tablet,chewable 81 mg PO HS rosuvastatin 40 mg tablet 40 mg PO DAILY losartan 50 mg tablet 25 mg PO DAILY Qty: 30 5RF furosemide 20 mg tablet 20 mg PO .COMPLEX Rx Instructions: 20 mg orally , , , ; duloxetine 60 mg capsule,delayed release(DR/EC) 60 mg PO DAILY Qty: 90 3RF duloxetine 30 mg capsule,delayed release(DR/EC) 30 mg PO DAILY Qty: 90 2RF Rx Instructions: taken w/ 60 mg for total of 90 mg ascorbic acid (vitamin C) 500 mg Capsule 500 mg PO DAILY glucosamine sulfate 1,000 mg Tablet 1,000 mg PO DAILY calcium carbonate-vitamin D3 600 mg-5 mcg (200 unit) tablet 2 tablet PO QAM Anoro Ellipta 62.5-25 mcg/actuation blister with device 1 inh INHALATION DAILY Qty: 180 3RF carvedilol phosphate [Coreg CR] 80 mg capsule, ER multiphase 24 hr 80 mg PO QAM Qty: 90 1RF Rx Instructions: must administer with a meal/food alprazolam 0.25 mg tablet 0.25 mg PO DAILY PRN (Reason: Anxiety) Qty: 30 0RF pantoprazole 40 mg tablet,delayed release (DR/EC) See Rx Instructions .ROUTE .COMPLEX Qty: 90 3RF Dose Instruction: TAKE 1 TABLET BY MOUTH IN THE MORNING Rx Instructions: TAKE 1 TABLET BY MOUTH IN THE MORNING Follow-up/Referrals: Sorin Hanna MD [Primary Care Provider] -
== END 2024-09-12 09:31 | disposition home or self-care (01) ==
PROVIDERS: Emergency Provider Nurse Practitioner; PCP Family Medicine
DX: J44.1 Chronic obstructive pulmonary disease with (acute) exacerbation (principal); I10 Essential (primary) hypertension; E78.5 Hyperlipidemia, unspecified; F41.9 Anxiety disorder, unspecified; K21.9 Gastro-esophageal reflux disease without esophagitis; I42.8 Other cardiomyopathies; Z86.718 Personal history of other venous thrombosis and embolism; M19.90 Unspecified osteoarthritis, unspecified site; Z95.0 Presence of cardiac pacemaker
CPT/HCPCS: 99213; G0463

== ENCOUNTER 2025-02-27 00:24 | Day surgery (SDC) | payer MEDICARE, SELFPAY ==
[2025-02-19 12:46] VITALS: BMI 30.4
--- OUTSIDE RECORDS SUMMARY | 2025-02-27 00:26 | XMS_ITS | Continuity of Care Document ---
Author Organization [facility] Address [address] [place] [address] [address] [place] [address] Phone Care Team Providers Care Insurance Risk Manager Name Role Phone Justice Dwyer Unavailable Unavailable Advance Directives Directive Yes / No Effective Date File Name No Information Encounters Encounter Description Practice Location Reason(s) For Visit Diagnoses Date Provider Providers Copied on Encounter [facility], [address], [place], [place], [id number], [place] tel:[phone] [facility] [place] No Information 0 1-200 2 H[address] Edward. [address] , [address], [place], [address], [place]. tel:[phone] Family History Family Member Type Diagnosis Age At Onset No Information Payers Payer name Insurance type Covered democrat ID Authoriza tion(s) No Information Social History [...]
--- OUTSIDE RECORDS SUMMARY | 2025-02-27 00:26 | XMS_ITS | Referral Summary ---
Author Organization [facility] [address] [place] [address] 162 Address [address] [facility] [address] [place] [address] Care Team Providers Care Sample Weaver Name Role Phone Sorin Hanna MD Primary Care Provider Encounters Date Type Department Care Team Description 02/02/[address] [facility] Medical [facility] Cardiology [address] [facility] [address] [place] [address] ProviderJanene MD 02/01/2025 1:45 PM CDT Office Visit 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 Medical [facility] Cardiology [address] [facility] [address] [place] [address] Mai Couhglin NP Transthoracic Echo (TTE) Complete W Doppler/CF 01/29/2025 8:15 AM CDT Ancillary Procedure [facility] Medical [facility] Cardiology [address] [facility] [address] [place] [address] Dilated cardiomyopathy (HCC) 12/13/2024 8:30 AM CDT Ancillary Procedure [facility] Cardiology [address] [facility] [address], [place] [address] Pacemaker (Primary Dx); Second degree atrioventricular block from Last 3 Months Allergies No known active allergies Medications ALPRAZolam (XANAX) 0.25 mg tablet Take one by mouth one time per day as needed 0 0 8 Active calcium carbonate (OS-CECE) 1,500 mg (600 mg of elemental calcium) tablet Take one by mouth two times per day 0 0 0 Active carvedilol CR (COREG CR) 80 mg 24 hr capsule Take one by mouth one time per day for heart [address] (CYMBALTA) 60 mg capsule take 1 capsule by oral route every day 0 0 4 Active glucosamine-me thylsulfonylme th (GLUCOSAMINE MSM) 1,500-500 mg/30 mL liquid take 2 tables by oral route daily 0 0 5 Active multivitamin capsule Take one by mouth one time per day [address] (PROTONIX) 40 mg EC tablet Take 1 tablet (40 mg total) by mouth daily Active umeclidinium-v ilanterol (ANORO ELLIPTA) 62.5-25 mcg/actuation blister with device Inhale 1 puff daily Active aspirin 81 mg enteric coated tabletIndicati ons:Coronary artery disease involving samish coronary artery of samish heart without angina pectoris Take 1 tablet (81 mg total) by mouth daily 30 tablet 11 3 Active albuterol HFA (PROVENTIL HFA,VENTOLIN HFA,PROAIR HFA) 90 mcg/actuation inhalerIndicat ions:ERIC (dyspnea on exertion) Inhale 2 puffs every 6 (six) hours as needed for wheezing 1 each 3 Active furosemide (LASIX) 40 mg tablet Take 1/2 (one-half) tablet by mouth once daily 45 tablet [address] (CYMBALTA) 30 mg capsule Take 1 capsule (30 mg total) by mouth daily 4 Active rosuvastatin (CRESTOR) 40 mg tabletIndicati ons:Pure hypercholester olemia,Coronar y artery disease involving samish coronary artery of samish heart without angina pectoris Take 1 tablet by mouth once daily 90 tablet 3 4 Active furosemide (LASIX) 20 mg tablet Take 1 tablet (20 mg total) by mouth continuously as needed Active sacubitriL-anneliese sartan (ENTRESTO) 24-26 mg tabletIndicati ons:chronic heart failure Take 1 tablet by mouth 2 (two) times a day 90 tablet 3 5 Active sacubitriL-anneliese sartan (ENTRESTO) 24-26 mg tabletIndicati ons:chronic heart failure Take 1 tablet by mouth 2 (two) times a day 60 tablet 11 4 025 Discontin ued(Reord er) Active Problems Problem Noted Date Diagnosed Date Chronic systolic (congestive) heart failure 02/2024 Hypotension due to drugs 10/15/2023 Idiopathic hypotension 09/29/2023 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 02/10/2023 Pain in both lower extremities 02/10/2023 Dizziness 02/10/2023 History of DVT (deep vein thrombosis) 02/16/2022 Post-phlebitic syndrome 02/16/2022 Coronary artery disease invo lving samish coronary artery of samish heart without angina pectoris 07/04/2021 ERIC (dyspnea on exertion) 03/22/2018 Dilated cardiomyopathy (CMS/HCC) 03/16/2016 Overview (11/11/2016): Cardiomyopathy Abnormal cardiovascular stress test 03/16/2016 Overview (11/11/2016): Abnormal stress test Pure hypercholesterolemia 03/18/2015 Overview (11/13/2016): Hyperlipidemia Complete heart block 02/26/2014 Overview (11/13/2016): CHB (complete heart block) Pacemaker 02/26/2014 Overview (11/09/2019): Medtronic Dual Pacemaker Dx; Second Degree AVB. Gen change 11/07/2019-Uppstrom, chronic leads 10/22/2009. [facility] remote home monitoring. Assessment & Plan (03/21/2017 5:36 PM CDT): Pacemaker check December 2016, AP pace/V paced 92% of the time, longevity estimated 26 months. Now that she has chronic RV pacing, she may have a decline in LV function. When time for a generator change, we will evaluate for an upgrade to a biventricular pacemaker Do for in office pacemaker check Ventricular premature beats 12/23/2013 Overview (11/12/2016): PVCs Second degree atrioventricular block 12/23/2013 Overview (11/11/2016): AV BLOCK-2ND DEGREE NEC Left bundle branch block (LBBB) 12/23/2013 Overview (11/13/2016): LEFT BB BLOCK NEC Resolved Problems Problem Noted Date Diagnosed Date Resolved Date Visit for wound check 11/13/20192019 Status post biventricular pacemaker 04/04/2019 04/04/2019 Precordial pain 03/21/2017 03/22/2018 Assessment & Plan (03/21/2017 5:33 PM CDT): Atypical noncardiac chest pain Primary cardiomyopathy 12/23/201309/20 Overview (11/13/2016): PRIM CARDIOMYOPATHY NEC Assessment & Plan (03/21/2017 5:34 PM CDT): Improvement of cardiomyopathy with EF up to 50-55%. Actually had declined from 67%; perhaps from reader to reader variability or perhaps a true declined due to chronic RV pacing. Syncope and collapse 12/23/2013 017 Overview (11/13/2016): SYNCOPE AND COLLAPSE Social History Tobacco Use Types Packs/Day Years Used Date Smoking Tobacco: Never Smokeless Tobacco: Never Tobacco Cessation:Counseling Given: Not Answered Alcohol Use Standard Drinks/Week Comments No 0 (1 standard drink = 0.6 oz pur e alcohol) Personal Safety Answer Date Recorded Have you ever been in or are you currently in a harmful physical or emotional relationship or is someone making you feel afraid or unsafe? Denies 04/29/2024 Comments Unknown Sex and Gender Information Value Date Recorded Sex Assigned at Not on file Legal Sex Female 11:59 PM PRODUCT SAFETY MANAGER Gender Identity Female 09/13/2019 10:03 AM PRODUCT SAFETY MANAGER Sexual Orientation Not on file Last Filed Vital Signs Vital Sign Reading Time Taken Comments Blood Pressure 120/72 02/01/2025 1:35 PM CDT Pulse 65 02/01/2025 1:35 PM CDT Temperature 36.8 C (98.2 F) 04/29/2024 11:28 AM CDT Respiratory Rate 16 04/29/2024 3:30 PM CDT Oxygen Saturation 98% 02/01/2025 1:35 PM CDT Inhaled Oxygen Concentration - - Weight 81.6 kg (179 lb 12.8 oz) 02/01/2025 1:35 PM CDT Height 170.2 cm (5' 7) 02/01/2025 1:35 PM CDT Body Mass Index 28.16 02/01/2025 1:35 PM CDT Plan of Treatment Not on file Medical Devices Implanted Type Area Moth Proofer Device Identifier Shelf Expiration Date Model / Serial / Lot Medtronic Ra Lead (5076-45)-10/22 Implanted:10/07 (Quantity not on file) Lead Chest Medtronic Cardiac Rhythm Mgmt 5076-45 / / Medtronic Rv Lead (5076-52)-10/22 Implanted:10/07 (Quantity not on file) Lead Chest Medtronic Cardiac Rhythm Mgmt 5076-52 / [id number] / Medtronic Pacemaker ([id number])-2019 Implanted:10/09 (Quantity not on file) Pacemaker Chest Medtronic Second Degree AVB [id number] / [id number] / Procedures Procedure Name Priority Date/Time Associated Diagnosis Comments POCT LIPID PANEL Routine 02/01/2025 3:17 PM CDT Coronary artery disease involving samish coronary artery of samish heart without angina pectoris COMPREHENSIVE METABOLIC PANEL Routine 01/31/2025 10:58 AM CDT TRANSTHORACIC ECHO (TTE) COMPLETE W DOPPLER/CF WO CONTRAST Routine 01/29/2025 9:08 AM CDT Dilated cardiomyopathy (HCC) DEVICE CHECK - REMOTE Routine 12/13/2024 9:18 AM CDT Second degree atrioventricular block from Last 3 Months Results * POCT lipid panel (02/01/2025 3:17 PM CDT) [facility] Cholesterol, POC 156 <200 MG/DL Comment:GLU = 100 HDL, POC 73 >=40 mg/dL Triglycerides, POC 88 <=149 mg/dL LDL Cholesterol POC 66 <=129 mg/dL Chol/HDL Ratio, POC 0.9 NONE Non-HDL Cholesterol, POC 84 NONE mg/dL Cholesterol Total, POC 156 30 - 199 mg/dL Capillary blood 02/01/2025 3 :17 PM CDT us Jeff Shaffer MD POINT OF CARE TEST ORDERA BLES Final Result * (ABNORMAL) Comprehensive metabolic panel (01/31/2025 10:58 AM CDT) [facility] SCRIBED Sodium 140 134 - 144 mmol/L EXTERNAL LAB SCRIBED Potassium 4.1 3.5 - 5.2 mmol/L EXTERNAL LAB SCRIBED Chloride 104 96 - 106 mmol/L EXTERNAL LAB SCRIBED Carbon Dioxide 23 20 - 29 mmol/L EXTERNAL LAB SCRIBED Anion Gap EXTERNAL LAB Comment:not performed at lab SCRIBED Urea Nitrogen (BUN) 17 8 - 27 mg/dl EXTERNAL LAB SCRIBED Creatinine 1.02(A) 0.57 - 1.00 mg/dl EXTERNAL LAB SCRIBED Glucose 76 70 - 99 mg/dl EXTERNAL LAB SCRIBED Calcium 9.0 8.7 - 10.3 mg/dl EXTERNAL LAB SCRIBED Bilirubin 0.4 0.0 - 1.2 mg/dl EXTERNAL LAB SCRIBED Plasma Protein 6.1 6.0 - 8.5 g/dl EXTERNAL LAB SCRIBED Albumin 4.0 3.8 - 4.8 g/dl EXTERNAL LAB SCRIBED Alkaline Phosphatase 86 44 - 121 Units/L EXTERNAL LAB SCRIBED Alanine Transaminase (ALT) EXTERNAL LAB Comment:not performed at lab SCRIBED Aspartate Transaminase (AST) EXTERNAL LAB Comment:not performed at lab SCRIBED eGFR in EXTERNAL LAB Comment:not performed at lab SCRIBED eGFR in NonAfrican Lebanese EXTERNAL LAB Comment:not performed at lab Blood us Historical Provider LAB BLOOD ORDERABLES Edit ed Result - Final EXTERNAL LAB * TRANSTHORACIC ECHO (TTE) COMPLETE W DOPPLER/CF WO CONTRAST (01/29/2025 9:08 AM CDT) EF Mod BP 56 % CONS SCIMAGE Anatomical Region Laterality Modality Ultrasound 01/29/2025 8:08 AM CDT Narrative 01/29/2025 10:[address] [facility] Medical Group Cardiology [address] [facility] [address] [address] [address] [facility] [address], [place] [address] P:[phone] P:[phone] Echocardiographic Report Patient Name: REYNA HYATT M : 1950 Study Date: 01/29/2025 8:08:08 AM Gender: F Garnetter: KEVIN Location: [place] Ref Provider: MAI COUGHLIN Height(Cm): 170 BSA: 2 Weight(Kg): 84.8 Heart Rate: 77 BP: 128 / 76 Quality: Good Order Provider: MAI COUGHLIN PROCEDURES: Echocardiographic Report: Transthoracic echocardiogram with complete 2D, M-Mode, and color Doppler examination. With Strain Analysis. INDICATIONS: I42.0 Dilated cardiomyopathy. MEASUREMENTS: 2D/MM Value Range Doppler Value Range EF Mod BP 56 % [ 54 - 74 ] MP Vmax 2.17 cm2 [ 2.00 - 4.00 ] LVIDd 2D 4.41 cm [ 3.80 - 5.20 ] AV Mean PG 4 mmHg LVIDs 2D 3.06 cm [ 2.20 - 3.50 ] AV Peak Len 1.30 m/s [ 1.00 - 1.70 ] LVPWd 2D 0.86 cm [ 0.60 - 0.90 ] AV Peak PG 7 mmHg IVSd 2D 0.93 cm [ 0.60 - 0.90 ] AV VTI 24.28 cm LVOT Diam 2.01 cm [ 1.70 - 2.10 ] LVOT Peak Len 0.87 m/s [ 0.70 - 1.10 ] LVOT VTI 17.94 cm MV E Peak Len 0.47 m/s [ 0.60 - 1.30 ] MV A Peak Len 0.56 m/s [ 1.00 - 1.20 ] MV Decel Time 207 msec [ 104 - 258 ] PV Peak Len 0.59 m/s [ 0.40 - 0.80 ] TR Peak Len 2.50 m/s [ 1.00 - 2.80 ] TR Peak PG 25 mmHg Lateral E` 0.08 m/s [ 0.10 - 0.15 ] E` 0.08 m/s E/E` 6 2D/MM Value Range Doppler Value Range - FINDINGS: Interpretation Site: Exam was interpreted at [facility]. Left Ventricle: Paradoxical septal motion consistent with RV pacemaker. Ejection fraction is measured at 56 %. Global Longitudinal Strain is -11 %. The left ventricle is normal in size and systolic function. The left ventricular ejection fraction is visually estimated to be 55-60%. Right Ventricle: Normal right ventricular size. Normal right ventricular systolic function. Linear artifact in right ventricle suggestive of catheter(s), pacemaker lead(s), or ICD lead(s). Left Atrium: The left atrium is normal in size. Right Atrium: The right atrium is normal in size. Linear artifact in right atrium suggestive of catheter(s), pacemaker lead(s), or ICD lead(s). Atrial Septum: Normal atrial septum. Mitral Valve: Normal appearance of the mitral valve. Aortic Valve: Normal appearance of the aortic valve. Tricuspid Valve: Normal appearance of the tricuspid valve. Mild tricuspid regurgitation. Pulmonic Valve: The pulmonic valve is not well visualized. There is no color Doppler evidence of pulmonic valve regurgitation. Pericardium: Normal pericardium with no significant pericardial effusion. Aorta: The aortic root at the level of the sinus of Valsalva measures 3.3 cm in diameter. IVC: Normal size and normal respiratory collapse consistent with normal right atrial pressure (<5 mmHg). CONCLUSIONS: Paradoxical septal motion consistent with RV pacemaker. Ejection fraction is measured at 56 %. Global Longitudinal Strain is -11 %. The left ventricle is normal in size and systolic function. The left ventricular ejection fraction is visually estimated to be 55-60%. Normal right ventricular size. Normal right ventricular systolic function. Linear artifact in right ventricle suggestive of catheter(s), pacemaker lead(s), or ICD lead(s). There were no significant valvular abnormalities. Electronically Signed By: Dr. Seymour Cordova 01/29/2025 10:30:32 AM CDT Procedure Note Seymour Cordova MD - 01/29/2025 [facility] Medical Group Cardiology [address] [facility] [address] [id number] [address] [facility] [address] [address] P:[phone] P:[phone] Echocardiographic Report Patient Name: REYNA HYATT M : 1950 Study Date: 01/29/2025 8:08:08 AM Gender: F Garnetter: KEVIN Location: [facility] Provider: MAI COUGHLIN Height(Cm): 170 BSA: 2 Weight(Kg): 84.8 Heart Rate: 77 BP: 128 / 76 Quality: Good Order Provider: MAI COUGHLIN PROCEDURES: Echocardiographic Report: Transthoracic echocardiogram with complete 2D, M-Mode, and color Dopplerexamination. With Strain Analysis. INDICATIONS: I42.0 Dilated cardiomyopathy. MEASUREMENTS: 2D/MM Value Range Doppler ValueRange EF Mod BP 56 % [ 54 - 74 ] MP Vmax 2.17 cm2 [2.00 - 4.00 ] LVIDd 2D 4.41 cm [ 3.80 - 5.20 ] AV Mean PG 4 mmHg LVIDs 2D 3.06 cm [ 2.20 - 3.50 ] AV Peak Len 1.30 m/s [1.00 - 1.70 ] LVPWd 2D 0.86 cm [ 0.60 - 0.90 ] AV Peak PG 7 mmHg IVSd 2D 0.93 cm [ 0.60 - 0.90 ] AV VTI 24.28 cm LVOT Diam 2.01 cm [ 1.70 - 2.10 ] LVOT Peak Len 0.87 m/s [ 0.70 - 1.10 ] LVOT VTI 17.94 cm MV E Peak Len 0.47 m/s [ 0.60 - 1.30 ] MV A Peak Len 0.56 m/s [ 1.00 - 1.20 ] MV Decel Time 207 msec [ 104 - 258 ] PV Peak Len 0.59 m/s [ 0.40 - 0.80 ] TR Peak Len 2.50 m/s [ 1.00 - 2.80 ] TR Peak PG 25 mmHg Lateral E` 0.08 m/s [ 0.10 - 0.15 ] E` 0.08 m/s E/E` 6 2D/MM Value Range Doppler ValueRange - FINDINGS: Interpretation Site: Exam was interpreted at [facility]. Left Ventricle: Paradoxical septal motion consistent with RV pacemaker. Ejection fractionis measured at 56 %. Global Longitudinal Strain is -11 %. The left ventricle is normal insize and systolic function. The left ventricular ejection fraction is visuallyestimated to be 55-60%. Right Ventricle: Normal right ventricular size. Normal right ventricular systolic function.Linear artifact in right ventricle suggestive of catheter(s), pacemaker lead(s),or ICD lead(s). Left Atrium: The left atrium is normal in size. Right Atrium: The right atrium is normal in size. Linear artifact in right atriumsuggestive of catheter(s), pacemaker lead(s), or ICD lead(s). Atrial Septum: Normal atrial septum. Mitral Valve: Normal appearance of the mitral valve. Aortic Valve: Normal appearance of the aortic valve. Tricuspid Valve: Normal appearance of the tricuspid valve. Mild tricuspid regurgitation. Pulmonic Valve: The pulmonic valve is not well visualized. There is no color Dopplerevidence of pulmonic valve regurgitation. Pericardium: Normal pericardium with no significant pericardial effusion. Aorta: The aortic root at the level of the sinus of Valsalva measures 3.3 cm indiameter. IVC: Normal size and normal respiratory collapse consistent with normal rightatrial pressure (<5 mmHg). CONCLUSIONS: Paradoxical septal motion consistent with RV pacemaker. Ejection fractionis measured at 56 %. Global Longitudinal Strain is -11 %. The left ventricle is normal insize and systolic function. The left ventricular ejection fraction is visuallyestimated to be 55-60%. Normal right ventricular size. Normal right ventricular systolic function.Linear artifact in right ventricle suggestive of catheter(s), pacemaker lead(s),or ICD lead(s). There were no significant valvular abnormalities. Electronically Signed By: Dr. Seymour Cordova 01/29/2025 10:30:32 AM CDT Mai Coughlin NP CV ECHO PROCEDURES Final Result * DEVICE CHECK - REMOTE (12/13/2024 9:18 AM CDT) Anatomical Region Laterality Modality Other Narrative 02/16/2025 12:19 PM CDT Medtronic Dual Pacemaker Dx; Second Degree AVB. Gen change 11/07/2019-Uppstrom, chronic leads 10/22/2009. [facility] remote home monitoring Routine DDDR Pacemaker Remote. Transmission attached. Battery status: 2.98 V, 7.0 years remaining battery life to ANA MARÍA. Stable lead impedances, pacing and sensing thresholds. Presenting rhythm: /SALESFORCE TRAINER AP-49.6%, SALESFORCE TRAINER-100.0% 2 AT/AF episodes noted, longest episode was 3 minutes and 16 seconds in duration, IEGM suggestive of AFib. AF Grant < 0.1%. No Ventricular high rate episodes detected. Medications: ASA 81 mg, carvedilol CR 80 mg, Entresto 24-26 mg See scanned report. Office pacemaker follow up: 05/16/25 [facility] remote f/u 03/21/25. Chris Ross, RN us Jeff Shaffer MD CV CARDIAC [facility] Final Result from Last 3 Months Insurance [employer] MEDICARE AD[facility] Address: [address] [address] [address] [place] [address] [place] [address] [address] [facility] MED[facility] Address: [address] [address] [place] [address] [facility] MEDICARE [facility] Address: [address] [address] [place] [address] Care Teams Sample Weaver Relationship Specialty Start Date End Date Sorin Hanna MD [address] [facility] [address] [place] [address] PCP - General 11/06/16
--- OUTSIDE RECORDS SUMMARY | 2025-02-27 00:26 | XMS_ITS | Encounter Summary ---
Author Organization [facility] Medical Group Address [address] [facility] [address] [place] [address] Care Team Providers Care Structural Technician Name Role Phone Sorin Hanna MD Primary Care Provider Sorin Hanna MD Primary Care Provider Encounter Details Date Type Department Care Team (Late st Contact Info) Description 09/23/2016 Orders Only [facility] ProviderJanene MD [address] [place] [address] Social History Tobacco Use Types Packs/Day Years Used Date Smoking Tobacco: Never Assessed Alcohol Use Standard Drinks/Week Comments No 0 (1 standard drink = 0.6 oz pur e alcohol) Comments Unknown Sex and Gender Information Value Date Recorded Sex Assigned at Not on file Legal Sex Female 11:59 PM ELIGIBILITY COUNSELOR Gender Identity Female 09/13/2019 10:03 AM ELIGIBILITY COUNSELOR Sexual Orientation Not on file documented as of this encounter Plan of Treatment Not on file documented as of this encounter Procedures Procedure Name Priority Date/Time Associated Diagnosis Comments CARDIOLOGY REPORT 09/23/2016 documented in this encounter Results * CARDIOLOGY REPORT (09/23/2016) Anatomical Region Laterality Modality Other Narrative 09/23/2016 Ordered by an unspecified provider. us Historical Provider [facility] LAWANDA BRADLEY Final Result documented in this encounter Visit Diagnoses Not on filedocumented in this encounter Care Teams Structural Technician Relationship Specialty Start Date End Date Sorin Hanna MD [address] [place] [address] PCP - General 11/06/16 Sorin Hanna MD [address] [place] [address] PCP - General 12/22/12 11/05/16 documented as of this encounter
--- OUTSIDE RECORDS SUMMARY | 2025-02-27 00:26 | XMS_ITS | Encounter Summary ---
Author Organization [facility] Healthcare Address [address] [place] [address] Care Team Providers Care Director Of Dance Name Role Phone Sorin Hanna MD Primary Care Provider Encounter Details Date Type Department Care Team (Late st Contact Info) Description 01/30/2025 Results Follow-Up [facility] Medical Group Cardiology [address] [address] [address] [place] [address] Mai Donnelly NP [address] [facility] [address] [place] [address] Transthoracic Echo (TTE) Complete W Doppler/CF Social History Tobacco Use Types Packs/Day Years Used Date Smoking Tobacco: Never Smokeless Tobacco: Never Alcohol Use Standard Drinks/Week Comments No 0 [...] on file Legal Sex Female 11:59 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
--- OUTSIDE RECORDS SUMMARY | 2025-02-27 00:26 | XMS_ITS | Encounter Summary ---
Author Organization [facility] Medical Group Address [address] [facility] [address] [place] [address] Care Team Providers Care Ammonium Nitrate Crystallizer Name Role Phone Sorin Hanna MD Primary Care Provider Encounter Details Date Type Department Care Team (Late st Contact Info) Description 12/30/2016 Orders Only [facility] Provider, MD [address] [place] [address] Social History Tobacco Use Types Packs/Day Years Used Date Smoking Tobacco: Never Assessed Alcohol Use Standard Drinks/Week Comments No 0 (1 standard drink = 0.6 oz pur e alcohol) Comments Unknown Sex and Gender Information Value Date Recorded Sex Assigned at Not on file Legal Sex Female 11:59 PM POULTRY HUSBANDMAN Gender Identity Female 09/13/2019 10:03 AM POULTRY HUSBANDMAN Sexual Orientation Not on file documented as of this encounter Plan of Treatment Not on file documented as of this encounter Procedures Procedure Name Priority Date/Time Associated Diagnosis Comments CARDIOLOGY REPORT 12/30/2016 documented in this encounter Results * CARDIOLOGY REPORT (12/30/2016) Anatomical Region Laterality Modality Other Narrative 12/30/2016 Ordered by an unspecified provider. us Historical Provider [facility] LAWANDA BRADLEY Final Result documented in this encounter Visit Diagnoses Not on filedocumented in this encounter Care Teams Ammonium Nitrate Crystallizer Relationship Specialty Start Date End Date Sorin Hanna MD [address] [facility] [address] [place] [address] PCP - General 11/06/16 documented as of this encounter
--- OUTSIDE RECORDS SUMMARY | 2025-02-27 00:26 | XMS_ITS | Clinical Summary ---
Author Organization [facility] [address] Address [address] [place] [address] Care Team Providers Care Vice President Investor Relations Name Role Phone Sorin Hanna MD Primary Care Provider Allergies No known active allergies Medications ALPRAZolam [...] tables by oral route daily 0 0 08/10/201 5 Active multivitamin capsule Take one by mouth one time per day [address] (PROTONIX) 40 mg EC tablet Take 1 tablet (40 mg total) by mouth daily Active umeclidinium-v ilanterol (ANORO ELLIPTA) 62.5-25 mcg/actuation blister with device Inhale 1 puff daily Active aspirin 81 mg enteric coated tabletIndicati ons:Coronary artery disease involving nuiqs[place] coronary artery of [place] heart without angina pectoris Take 1 tablet [...] ons:Pure hypercholester olemia,Coronar y artery disease involving nuiqs[place] coronary artery of [place] heart without angina pectoris Take 1 tablet [...] syndrome 02/16/2022 Coronary artery disease invo lving nuiqsut coronary artery of n[place] heart without angina pectoris 07/04/2021 ERIC (dyspnea on exertion) 03/22/2018 Dilated cardiomyopathy (CMS/HCC) 03/16/2016 Overview (11/11/2016): Cardiomyopathy Abnormal cardiovascular stress test 03/16/2016 Overview (11/11/2016): Abnormal stress test Pure hypercholesterolemia 03/18/2015 Overview (11/13/2016): Hyperlipidemia Complete heart block 02/26/2014 Overview (11/13/2016): CHB (complete heart block) Pacemaker 02/26/2014 Overview (11/09/2019): Medtronic Dual Pacemaker Dx; Second Degree AVB. Gen change 11/07/2019-[facility], chronic leads 10/22/2009. Carelink remote home monitoring. [...] 12/23/2013 017 Overview (11/13/2016): SYNCOPE AND COLLAPSE Encounters Date Type Department Care Team Description 02/02/2025 Orders Only [facility] Cardiology [address] [place] [address] [place] [phone] ProviderJanene MD 02/01/2025 1:45 PM CDT Office Visit [facility] Cardiology [address] [place] [address] [place] [phone] Jeff Shaffer MD Coronary artery disease involving nuiqsut coronary artery of nuiqsut heart without angina pectoris (Primary Dx); Chronic systolic (congestive) heart failure (HCC); Dilated cardiomyopathy (CMS/HCC) (HCC); Pacemaker-dependent due to nuiqsut cardiac rhythm insufficient to support life; Left bundle branch block (LBBB); Dizziness 01/30/2025 Results Follow-Up [facility] Cardiology [address] [place] [address] [place] [phone] Mai Coughlin NP Transthoracic Echo (TTE) Complete W Doppler/CF 01/29/2025 8:15 AM CDT Ancillary Procedure [facility] Cardiology [address] [place] [address] [place] [phone] Dilated cardiomyopathy (HCC) 12/13/2024 8:30 AM CDT Ancillary Procedure [facility] Cardiology [facility] [address], [place] [address] Pacemaker (Primary Dx); Second degree atrioventricular block from Last 3 Months Surgical History Surgery Date Site/Laterality Comments HYSTERECTOMY Hysterectomy APPENDECTOMY CHOLECYSTECTOMY HERNIA REPAIR Medical History Medical History Date Comments Sinusitis sinusitis Anemia anemia Anxiety Arthritis Heart disease Hypertension Family History Medical History Relation Name Comments spinal bifida Brother 1 of enlarged heart, 6 months old Brother 2 COPD Father Valentino Hammer,Sr Cancer Father Valentino Hammer,Sr Depression Father Valentino Hammer,Sr Hypertension Father Valentino Hammer,Sr Lung cancer Father Valentino Hammer,Sr Obesity Father Valentino Hammer,Sr Stroke Father Valentino Hammer,Sr Hearing loss Mother Katerina Hammer Hypertension Mother Katerina Hammer Lung cancer Mother Katerina Hammer Miscarriages / Stillbirths Mother Katerina mahan Obesity Mother Katerina Hammer Heart disease Other Uncle suddenly of heart attack as teen Relation Name Status Comments Brother 1 Brother 2 Father Valentino Hammer,Sr Mother Katerina Hammer Other Uncle Social History Tobacco Use Types Packs/Day Years [...] on file 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 Gender Identity Female 09/13/2019 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 Sexual Orientation Not on file Obstetrics History Last Filed Vital Signs Vital Sign Reading [...] 02/01/2025 1:35 PM CDT Plan of Treatment Health Maintenance Due Date Last Done Comments Breast Cancer Screening-Mammogram 1950 Colon Cancer Screening-Colonoscopy 1950 Depression Screening 1950 Fall Risk Assessment 1950 Hepatitis C Screening 1950 Osteoporosis Screening-Bone Density Scan 1950 Hepatitis B Screening 1970 Well Visit 65+ 2017 Influenza Vaccine (#1) 2025 05/09/2019, 2017 DTaP/Tdap/Td Vaccine (2 - Td or Tdap) 11/22/2027 Pneumococcal vaccine 65+ Completed 05/09/2019, 04/09 Zoster Vaccine Completed 07/10/2019, 05/09/2019 Medical Devices Implanted Type Area Used Car Renovator Device Identifier Shelf Expiration Date Model / Serial / Lot Medtronic Ra Lead (5076-45)-10/22 Implanted:10/07 (Quantity not on file) Lead Chest Medtronic Cardiac Rhythm Mgmt 5076-45 / / Medtronic Rv Lead (5076-52)-10/22 Implanted:10/07 (Quantity not on file) Lead Chest Medtronic Cardiac Rhythm Mgmt 5076-52 / [id number] / Medtronic Pacemaker ([id number])-2019 Implanted:10/09 (Quantity not on file) Pacemaker Chest Medtronic Second Degree AVB [id number] / [id number] / Procedures Procedure Name Priority Date/Time Associated Diagnosis Comments POCT LIPID PANEL Routine 02/01/2025 3:17 PM CDT Coronary artery disease involving nuiqsut coronary artery of nuiqsut heart without angina pectoris COMPREHENSIVE METABOLIC PANEL Routine 01/31/2025 10:58 AM CDT TRANSTHORACIC ECHO (TTE) COMPLETE W DOPPLER/CF WO CONTRAST Routine 01/29/2025 9:08 AM CDT Dilated cardiomyopathy (HCC) DEVICE CHECK - REMOTE Routine 12/13/2024 9:18 AM CDT Second degree atrioventricular block from Last 3 Months Results * POCT lipid panel (02/01/2025 3:17 PM CDT) Pathologist [facility] Cholesterol, POC 156 <200 MG/DL Comment:GLU = 100 HDL, POC 73 >=40 mg/dL Triglycerides, POC 88 <=149 mg/dL LDL Cholesterol POC 66 <=129 mg/dL Chol/HDL Ratio, POC 0.9 NONE Non-HDL Cholesterol, POC 84 NONE mg/dL Cholesterol Total, POC 156 30 - 199 mg/dL Capillary blood 02/01/2025 3 :17 PM CDT Jeff Shaffer MD POINT OF CARE TEST ORDERA BLES Final Result * (ABNORMAL) Comprehensive metabolic panel (01/31/2025 10:58 AM CDT) Pathologist [facility] SCRIBED Sodium 140 134 - 144 mmol/L [...] performed at lab SCRIBED eGFR in NonAfrican [place] EXTERNAL LAB Comment:not performed at lab Blood us Historical Provider LAB BLOOD ORDERABLES Edit ed Result - Final EXTERNAL LAB * TRANSTHORACIC ECHO (TTE) COMPLETE W DOPPLER/CF WO CONTRAST (01/29/2025 9:08 AM CDT) EF Mod BP 56 % CONS SCIMAGE Anatomical Region Laterality Modality Ultrasound 01/29/2025 8:08 AM CDT Narrative 01/29/2025 10:31 AM CDT [facility] Cardiology [address] [facility] [address] [address] [address] [facility] [address], [place] [address] P:[phone] P:[phone] Echocardiographic Report Patient Name: REYNA HYATT M : 1950 Study Date: 01/29/2025 8:08:08 AM Gender: F Vice President Process: KEIVN Location: [facility] Provider: MAI COUGHLIN Height(Cm): 170 BSA: [...] FINDINGS: Interpretation Site: Exam was interpreted at [facility]. Left Ventricle: Paradoxical septal motion consistent with [...] Procedure Note Seymour Cordova MD - 01/29/2025 [facility] Cardiology [address] [facility] [address] [address] [address] [facility] [address] [address] P:[phone] P:[phone] Echocardiographic Report Patient Name: REYNA HYATT M : 1950 Study Date: 01/29/2025 8:08:08 AM Gender: F Vice President Process: KEVIN Location: [facility] Provider: MAI COUGHLIN Height(Cm): 170 BSA: [...] FINDINGS: Interpretation Site: Exam was interpreted at [facility]. Left Ventricle: Paradoxical septal motion consistent with [...] Pacemaker Dx; Second Degree AVB. Gen change 11/07/2019-[facility], chronic leads 10/22/2009. Carelink remote home monitoring Routine DDDR Pacemaker Remote. Transmission attached. Battery status: 2.98 V, 7.0 years remaining battery life to ANA MARÍA. Stable lead impedances, pacing and sensing thresholds. Presenting rhythm: /GUIDE RAIL CLEANER AP-49.6%, GUIDE RAIL CLEANER-100.0% 2 AT/AF episodes noted, longest episode was 3 minutes and 16 seconds in duration, IEGM suggestive of AFib. AF [place] < 0.1%. No Ventricular high rate episodes detected. Medications: ASA 81 mg, carvedilol CR 80 mg, Entresto 24-26 mg See scanned report. Office pacemaker follow up: 05/16/25 [facility] remote f/u 03/21/25. Chris Ross, DARRYN Jeff Shaffer MD [facility] PROCE MIRNA Final Result from Last 3 Months [id number] MEDICARE [employer] [place] [place] [employer] Address: [address] [address] [employer] MED[employer] [place] [employer] Address: [address] [address] [place] [address] [employer] MEDICARE ADVANTAGE Care Teams Vice President Investor Relations Relationship Specialty Start Date End Date Sorin Hanna MD [address] [facility] [address] [place] [phone] PCP - General 11/06/16
[2025-02-27 09:54] VITALS: BP 105/70; PULSE 80; RESP 14; TEMP 36.5; O2SAT 100; BMI 29.6
[2025-02-27] MEDS: LACTATED RINGERS 1,000 ML 150 ML IV CONT (10:09)
--- NOTE | 2025-02-27 10:14 | P.PNAN_ITS ---
Anes - Initial Pre Proc Eval Procedure: Operation Date: 02/27/25 11:15 Proposed Procedures p Screening Colonoscopy - Ravi Siddiqi DO Date/Time: 02/27/25 10:14 Surgeon: Ravi Siddiqi DO Pre Op Diagnosis: Neoplasm screening Patient Data Age: 74 Gender: F Height: 1.65 m Weight: 80.7 kg Last Vital Signs Temp 97.7 F 02/27/25 09:54 Pulse 80 02/27/25 09:54 Resp 14 02/27/25 09:54 BP 105/70 02/27/25 09:54 Pulse Ox 100 02/27/25 09:54 O2 Del Method Room Air 02/27/25 09:54 Allergies Allergy/AdvReac Type Severity Reaction Status Date / Time No Known Allergies Allergy Verified 02/27/25 09:53 Home Medications ?Medication ?Instructions ?Recorded ?Confirmed ?Type aspirin 81 mg chewable tablet 81 mg PO HS 06/14/19 02/27/25 History multivitamin 1 tablet PO DAILY 06/14/19 02/27/25 History ascorbic acid (vitamin C) 500 mg 500 mg PO DAILY 11/06/19 02/27/25 History capsule glucosamine sulfate 1,000 mg tablet 1,000 mg PO DAILY 11/10/20 02/27/25 History rosuvastatin 40 mg tablet 40 mg PO DAILY 05/25/23 02/27/25 History furosemide 20 mg tablet 20 mg PO .COMPLEX 11/29/23 02/27/25 History alprazolam 0.25 mg tablet 0.25 mg PO DAILY PRN Anxiety #30 11/30/23 02/27/25 Rx tabs pantoprazole 40 mg tablet,delayed See Rx Instructions .Route 05/01/24 02/27/25 Rx release .COMPLEX #90 tabs calcium 600 mg (as 2 tablet PO QAM 07/13/24 02/27/25 History carbonate)-vitamin D3 5 mcg (200 unit) tablet sacubitril 24 mg-valsartan 26 mg 1 tablet PO BID 09/12/24 02/27/25 History tablet (Entresto) umeclidinium 62.5 mcg-vilanterol 1 inh inhalation DAILY #180 ea 09/15/24 02/27/25 Rx 25 mcg/actuation powdr for inhalation (Anoro Ellipta) carvedilol phosphate 80 mg See Rx Instructions .Route 10/30/24 02/19/25 Rx capsule,[id number] multiphase .COMPLEX #90 caps duloxetine 60 mg capsule,delayed 60 mg PO DAILY #90 caps 10/31/24 02/27/25 Rx release duloxetine 30 mg capsule,delayed 30 mg PO DAILY #90 caps 02/22/25 02/27/25 Rx release Patient hx anesthesia problems: none Family hx anesthesia problems: none Results Review: All pre-operative results and documents have been reviewed as part of the pre- operative evaluation. [facility] Past Medical History Medical History Dyslipidemia Hypertension History of deep vein thrombosis of lower extremity Depression Gastroesophageal reflux disease Left bundle branch block Chronic obstructive pulmonary disease Lifelong nonsmoker though she reports significant secondhand smoke exposure. Abnormal stress test History of cardiomyopathy Nonischemic cardiomyopathy with normalization of left ventricular function on medical therapy. Anxiety Osteoarthritis Surgical History Surgical History Hx laparoscopic cholecystectomy 11/04/22 History of incisional hernia repair 12/28/22 - developed incarcerated port site incisional hernia 4 days post right inguinal hernia repair and subsequently had laparoscopic incisional hernia repair H/O inguinal hernia repair 12/24/21 - robotic-assisted laparoscopic right inguinal hernia repair History of tonsillectomy History of bunionectomy History of appendectomy during [facility] History of cardiac pacemaker in situ Medtronic dual-chamber pacemaker inserted after patient developed complete heart block. History of hysterectomy with bilateral oophorectomy Family History Family History Father Hypertension Family history of elevated blood lipids Cerebrovascular accident Family history of lung cancer Mother Hypertension Family history of elevated blood lipids Family history of lung cancer Patient's mother is Grandparent Carcinoma of colon Sibling Patient's sister is in good health Patient's brother is in good health Social History Social History Social History: The patient lives in [place]. Her son and 2 granddaughters, age 9 and 11, live at home with her. 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 No alcohol, tobacco, or illicit substance use. She designates her brother Valentino Hammer, as her surrogate decision maker and she wishes to be a full code. 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 ) Neurological: alert and oriented Last oral intake: >/= 8 hours ASA classification: IV Emergent: no Anesthetic plan: proceed Anesthesia type and monitoring: general GIVS and standard monitoring Results Review: All pre-operative results and documents have been reviewed as part of the pre- operative evaluation. Hyperlipidemia, COPD, hx GERD, OA, pacemaker for CHB. Informed Consent: The patient's anesthetic plan and its attendant risks and benefits were discussed with the patient/family/POA. Questions were solicited and answers provided to the satisfaction of the patient/family/POA.
--- NOTE | 2025-02-27 10:32 | PM.IMHP ---
H&P: HPI History of Present Illness Date/Time: 02/27/25 10:32 Chief Complaint: screening for colorectal cancer Narrative: this is a 74-year-old woman who presents for colonoscopy. Her last colonoscopy was 5 years ago. She does have a family history of colon cancer in an aunt and grandmother. She denies any hematochezia or melena. Review of Systems Review of Systems: All systems reviewed & are unremarkable except as noted in HPI and below Constitutional: Constitutional: Denies chills, Denies fever(s), Denies headache(s) and Denies weight loss Eyes: Eyes: Denies change in vision ENT: Denies dizziness, Denies headache(s), Denies neck mass and Denies throat swelling Cardiovascular: Cardiovascular: Denies chest pain, Denies lightheadedness and Denies dyspnea Respiratory: Respiratory: Denies cough, Denies dyspnea and Denies wheezing Gastrointestinal: Gastrointestinal: Denies abdominal pain, Denies change in bowel habits, Denies nausea and Denies vomiting Genitourinary: Genitourinary: Denies hematuria and Denies dysuria Musculoskeletal: Musculoskeletal: Reports as per HPI Integumentary/Breasts: Skin/Breast: Reports as per HPI Neurologic: Denies dizziness and Denies headache(s) Allergic/Immunologic: Allergic/Immunologic: Denies throat swelling and Denies wheezing PMFSH Past Medical History Medical History Dyslipidemia Hypertension History of deep vein thrombosis of lower extremity Depression Gastroesophageal reflux disease Left bundle branch block Chronic obstructive pulmonary disease Lifelong nonsmoker though she reports significant secondhand smoke exposure. Abnormal stress test History of cardiomyopathy Nonischemic cardiomyopathy with normalization of left ventricular function on medical therapy. Anxiety Osteoarthritis Surgical History Surgical History Hx laparoscopic cholecystectomy 11/04/22 History of incisional hernia repair 12/28/22 - developed incarcerated port site incisional hernia 4 days post right inguinal hernia repair and subsequently had laparoscopic incisional hernia repair H/O inguinal hernia repair 12/24/21 - robotic-assisted laparoscopic right inguinal hernia repair History of tonsillectomy History of bunionectomy History of appendectomy during [facility] History of cardiac pacemaker in situ Medtronic dual-chamber pacemaker inserted after patient developed complete heart block. History of hysterectomy with bilateral oophorectomy Family History Family History Father Hypertension Family history of elevated blood lipids Cerebrovascular accident Family history of lung cancer Mother Hypertension Family history of elevated blood lipids Family history of lung cancer Patient's mother is Grandparent Carcinoma of colon Sibling Patient's sister is in good health Patient's brother is in good health Social History Social History Social History: The patient lives in [place]. Her son and 2 granddaughters, age 9 and 11, live at home with her. 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 No alcohol, tobacco, or illicit substance use. She designates her brother Valentino Hammer, as her surrogate decision maker and she wishes to be a full code. 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 Gender identity (if verbalized by the patient): Female Sexual Orientation (if Verbalized by the Patient): Straight or Heterosexual Spiritual care concerns: No Meds Home Medications and Allergies Home Medications ?Medication ?Instructions ?Recorded ?Confirmed ?Type aspirin 81 mg chewable tablet 81 mg PO HS 06/14/19 02/27/25 History multivitamin 1 tablet PO DAILY 06/14/19 02/27/25 History ascorbic acid (vitamin C) 500 mg 500 mg PO DAILY 11/06/19 02/27/25 History capsule glucosamine sulfate 1,000 mg tablet 1,000 mg PO DAILY 11/10/20 02/27/25 History rosuvastatin 40 mg tablet 40 mg PO DAILY 05/25/23 02/27/25 History furosemide 20 mg tablet 20 mg PO .COMPLEX 11/29/23 02/27/25 History alprazolam 0.25 mg tablet 0.25 mg PO DAILY PRN Anxiety #30 11/30/23 02/27/25 Rx tabs pantoprazole 40 mg tablet,delayed See Rx Instructions .Route 05/01/24 02/27/25 Rx release .COMPLEX #90 tabs calcium 600 mg (as 2 tablet PO QAM 07/13/24 02/27/25 History carbonate)-vitamin D3 5 mcg (200 unit) tablet sacubitril 24 mg-valsartan 26 mg 1 tablet PO BID 09/12/24 02/27/25 History tablet (Entresto) umeclidinium 62.5 mcg-vilanterol 1 inh inhalation DAILY #180 ea 09/15/24 02/27/25 Rx 25 mcg/actuation powdr for inhalation (Anoro Ellipta) carvedilol phosphate 80 mg See Rx Instructions .Route 10/30/24 02/19/25 Rx capsule,[id number] multiphase .COMPLEX #90 caps duloxetine 60 mg capsule,delayed 60 mg PO DAILY #90 caps 10/31/24 02/27/25 Rx release duloxetine 30 mg capsule,delayed 30 mg PO DAILY #90 caps 02/22/25 02/27/25 Rx release Allergies Allergy/AdvReac Type Severity Reaction Status Date / Time No Known Allergies Allergy Verified 02/27/25 09:53 Vital Signs Vital Signs - 24 hr 02/27/25 09:54 Temperature 97.7 F Pulse Rate 80 Respiratory Rate 14 Blood Pressure 105/70 Pulse Oximetry 100 Oxygen Delivery Room Air Exam Const: General: no acute distress and alert Orientation/consciousness: patient oriented x3 HENMT: Head: normocephalic and atraumatic Ears: hearing grossly normal bilaterally Face/Nose/Sinus: Normal nares present Mouth: Yes Normal oral and palatal mucosa present Eyes: Periorbital: periorbital findings normal Sclera: sclerae normal EOM: EOMs intact bilaterally Neck: Neck: normal visual inspection, no lymphadenopathy and trachea midline Chest: Chest palpation & inspection: normal inspection of the chest Resp: Effort & Inspection: normal respiratory effort Auscultation: clear to auscultation bilaterally Cardio: Jugular venous distension: no JVD Rate: regular rate Rhythm: regular rhythm Heart sounds: S1 normal heart sound present and S2 normal heart sound present Peripheral pulses: Peripheral pulses 2+ throughout GI: Inspection: normal to inspection GI Palp: Yes Soft to palpation, No Tenderness to palpation present (GI), No Guarding due to palpation present (GI) and No Rebound tenderness present Percussion: Yes normal to percussion Auscultation: normal bowel sounds : General: Yes no CVA tenderness Back/Spine/Pelvis: Back: no CVA tenderness Neuro: General: patient oriented x3, no focal motor deficits and CN's II-XI intact bilaterally Cognition (Neuro): normal cognition Speech: normal speech Motor exam (neuro): 5/5 motor strength present throughout Extrem: General: capillary refill normal and no clubbing, cyanosis or edema Assessment and Plan Assessment and plan (1) Screening for colorectal cancer: Code(s): Z12.11 - Encounter for screening for malignant neoplasm of colon; Z12.12 - Encounter for screening for malignant neoplasm of rectum Status: Acute Assessment and Plan: I have recommended colonoscopy. I have discussed the procedure, risks, benefits, and alternatives. Questions were answered. Patient is agreeable to proceed.
[2025-02-27 10:58] VITALS: BP 86/46; PULSE 71; RESP 17; O2SAT 100
[2025-02-27 11:08] VITALS: BP 83/44; PULSE 69; RESP 16; O2SAT 100
[2025-02-27 11:18] VITALS: BP 100/56; PULSE 70; RESP 14; O2SAT 100
== END 2025-02-27 11:39 | disposition home or self-care (01) ==
PROVIDERS: PCP Family Medicine; Visit Provider Surgery
PROC: 0DJD8ZZ Inspection of Lower Intestinal Tract, Via Natural or Artificial Opening Endoscopic (ICD-10-PCS; CPT 45378; principal; 2025-02-27 11:15)
DX: Z12.11 Encounter for screening for malignant neoplasm of colon (principal); K64.8 Other hemorrhoids
CPT/HCPCS: G0121; J2704; J7120

== ENCOUNTER 2025-05-30 08:34 | Outpatient (CLI) | payer MEDICARE, SELFPAY ==
--- NOTE | ~2025-05-30 | MM_ITS ---
EXAMINATION: screening [facility] BI w julia INDICATION: Asymptomatic, referred for screening mammogram COMPARISON: 05/26/2024 through 05/14/2020 TECHNIQUE: Digital Breast Tomosynthesis CC, MLO views of Both breasts were obtained with computer-aided detection to assist in interpretation of the study. FINDINGS: There are scattered areas of fibroglandular density. There is an asymmetry seen on the cc view in the Lateral right breast at posterior third. Elsewhere, there are no mammographic features of malignancy. A radiopaque pacemaker battery overlies and partially obscures the right axilla. IMPRESSION: 1. Right breast Asymmetry. 2. No evidence of malignancy in the Left breast. RECOMMENDATION: Right breast Diagnostic mammogram with true lateral, appropriate spot compression views and an ultrasound if needed. BI-RADS Category 0: Incomplete: Needs additional imaging evaluation. Reviewed, dictated and finalized at location B. IMPRESSION: 1. Right breast Asymmetry. 2. No evidence of malignancy in the Left breast. RECOMMENDATION: Right breast Diagnostic mammogram with true lateral, appropriate spot compressi on views and an ultrasound if needed. BI-RADS Category 0: Incomplete: Needs additional imaging evaluation.
--- OUTSIDE RECORDS SUMMARY | 2025-05-30 08:58 | XMS_ITS | Patient Health Record ---
Author Organization [facility] tye Address [address] [facility] [address] [place] [address] Care Team Providers Care Crm Manager Name Role Phone Sorin Hanna MD Primary Care Provider UnavailZheng Polk Unavailable [phone] Reason For Referral No Information Problems Problem Type SNOMED Code ICD Code Onset Dates Problem Status W/U Status Risk Notes Problem Neurogenic claudication (172264793) Spinal stenosis, lumbar region with neurogenic claudication (M48.062) Active confirmed Vital Signs Heart Rate 90 /min 05/08/2025 Temperature 98.0 degrees Fahrenheit 05/08/2025 Height-cm 165.1 cm 05/08/2025 Oximetry 96 % 05/08/2025 Blood pressure diastolic 80 mm Hg 05/08/2025 Weight-kg 80.74 kg 05/08/2025 Height 65 in 05/08/2025 Blood pressure systolic 100 mm Hg 05/08/2025 Weight 178 lbs 05/08/2025 BMI 29.62 kg/m2 05/08/2025 Procedures Procedure Date Ordered Date Performed Result Body Sit e EMG LE 5+with NC +6 Nerves 05/08/2025 N/A Encounters Encounter Location Date Provider Diagnosis [facility] [address] [facility] [address] [place] [address] 05/08/2025 Zheng Romero Spinal stenosis, lumbar region with neurogenic claudication M48.062 Assessments Encounter Date Diagnosis (ICD Code) Assessment Notes Treatment Notes Treatment Clinical Notes Section Notes 05/08/2025 Spinal stenosis, lumbar region with neurogenic claudication (ICD-10 - M48.062) Plan Of Treatment Pending Test Test Name Order Date EMG LE 5+with NC +6 Nerves 05/08/2025 Insurance Providers Payer Name Payer Address Payer Phone Subscriber Number Group Number Insured Name Patient Relationship to Insured Coverage Start Date Coverage End Date [facility] Medicare Advantage [facility] [address] [address] [place] [address] [id number] Reyna Ponce Self - patient is the insured
--- OUTSIDE RECORDS SUMMARY | 2025-05-30 08:58 | XMS_ITS | Encounter Summary ---
Author Organization [facility] Address [address] [place] [address] Care Team Providers Care Vessel Builder Name Role Phone Sorin Hanna MD Primary Care Provider Encounter Details Date Type Department Care Team (Late st Contact Info) Description 12/30/2016 Orders Only [facility] Provider, MD [address] [place] [address] Social History Tobacco Use Types Packs/Day Years Used Date Smoking Tobacco: Never Assessed Alcohol Use Standard Drinks/Week Comments No 0 (1 standard drink = 0.6 oz pur e alcohol) Comments Unknown Sex and Gender Information Value Date Recorded Sex Assigned at Not on file Legal Sex Female 11:59 PM ASSORTER Gender Identity Female 09/13/2019 10:03 AM ASSORTER Sexual Orientation Not on file documented as [...] on filedocumented in this encounter Care Teams Vessel Builder Relationship Specialty Start Date End Date Sorin Hanna MD [address] [facility] [address] [place] [address] PCP - General 11/06/16 documented as of this encounter
--- OUTSIDE RECORDS SUMMARY | 2025-05-30 08:58 | XMS_ITS | Clinical Summary ---
Author Organization [facility] [address] Address [address] [place] [address] Care Team Providers Care Patent Engineer Name Role Phone Sorin Hanna MD Primary [...] route every day 0 0 4 Active glucosamine-met hylsulfonylmeth (GLUCOSAMINE MSM) 1,500-500 mg/30 mL liquid take 2 tables by oral route daily 0 0 5 Active multivitamin capsule Take one by mouth one time per day [address] (PROTONIX) 40 mg EC tablet Take 1 tablet (40 mg total) by mouth daily Active umeclidinium-vi lanterol (ANORO ELLIPTA) 62.5-25 mcg/actuation blister with device Inhale 1 puff daily Active aspirin 81 mg enteric coated tabletIndicatio ns:Coronary artery disease involving [place] coronary artery of [place] heart without angina pectoris Take 1 tablet (81 mg total) by mouth daily 30 tablet 11 3 Active albuterol HFA (PROVENTIL HFA,VENTOLIN HFA,PROAIR HFA) 90 mcg/actuation inhalerIndicati ons:ERIC (dyspnea on exertion) Inhale 2 puffs every 6 (six) hours as needed for wheezing 1 each 3 Active furosemide (LASIX) 40 mg tablet Take 1/2 (one-half) tablet by mouth once daily 45 tablet [address] (CYMBALTA) 30 mg capsule Take 1 capsule (30 mg total) by mouth daily 4 Active rosuvastatin (CRESTOR) 40 mg tabletIndicatio ns:Pure hypercholestero lemia,Coronary artery disease involving [place] coronary artery of [place] heart without angina pectoris Take 1 tablet by mouth once daily 90 tablet 3 4 Active furosemide (LASIX) 20 mg tablet Take 1 tablet (20 mg total) by mouth continuously as needed Active sacubitriL-vals asim (ENTRESTO) 24-26 mg tabletIndicatio ns:chronic heart failure Take 1 tablet by mouth 2 (two) times a day 90 tablet 3 5 Active Active Problems Problem Noted Date Diagnosed Date Chronic systolic (congestive) heart failure 02/2024 Hypotension due to drugs 10/15/2023 Idiopathic hypotension 09/29/2023 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 02/10/2023 Pain in both lower extremities 02/10/2023 Dizziness 02/10/2023 History of DVT (deep vein thrombosis) 02/16/2022 Post-phlebitic syndrome 02/16/2022 Coronary artery disease invo lving [place]ock coronary artery of [place] heart without angina pectoris 07/04/2021 ERIC (dyspnea on exertion) 03/22/2018 Dilated cardiomyopathy (CMS/HCC) 03/16/2016 Overview (11/11/2016): Cardiomyopathy Abnormal cardiovascular stress test 03/16/2016 Overview (11/11/2016): Abnormal stress test Pure hypercholesterolemia 03/18/2015 Overview (11/13/2016): Hyperlipidemia Complete heart block 02/26/2014 Overview (11/13/2016): CHB (complete heart block) Pacemaker 02/26/2014 Overview (11/09/2019): Medtronic Dual Pacemaker Dx; Second Degree AVB. Gen change 11/07/2019-[facility], chronic leads 10/22/2009. [facility] remote home monitoring. [...] Encounters Date Type Department Care Team Description 05/16/2025 9:30 AM CDT Ancillary Procedure [facility] Cardiology [address] [place] [phone] Pacemaker (Primary Dx); Second degree atrioventricular block 05/16/2025 Orders Only [facility] Cardiology [address] [place] [phone] Jeff Shaffer MD Second degree atrioventricular block (Primary Dx); Pacemaker 03/21/2025 8:00 AM CDT Ancillary Procedure [facility] Cardiology [address] [place] [phone] Pacemaker (Primary Dx); Second degree atrioventricular block from Last 3 Months Surgical History Surgery Date Site/Laterality Comments HYSTERECTOMY Hysterectomy APPENDECTOMY CHOLECYSTECTOMY HERNIA REPAIR Medical History Medical History Date Comments Sinusitis sinusitis Anemia anemia Anxiety Arthritis Heart disease Hypertension Family History Medical History Relation Name Comments spinal bifida Brother 1 of enlarged heart, 6 months old Brother 2 COPD Father Valentino F. Lickenbroashu,Sr Cancer Father Valentino F. Breonnakenansonck,Sr Depression Father Valentino F. Breonnakenbrock,Sr Hypertension Father Valentino F. Lickenbrock,Sr Lung cancer Father Valentino F. Lickenbrock,Sr Obesity Father Valentino F. Lickenbrock,Sr Stroke Father Valentino F. 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 Gender Identity Female 09/13/2019 10:03 AM DETHISTLER OPERATOR Sexual Orientation Not on file Obstetrics History [...] Visit 65+ 2017 Influenza Vaccine (#1) 2025 3, 05/05/2021, 05/09/2020, Additional history exists DTaP/Tdap/Td Vaccine (3 - Td or Tdap) 04/14/2034 04/14/2024, 11/21/2017 Pneumococcal vaccine 65+ Completed 019, 04/20/2018, 04/20/2018 Zoster Vaccine Completed 07/10/2019, 05/09/2019 Medical Devices Implanted Type Area Family Caseworker Device Identifier Shelf Expiration Date Model / Serial / Lot Medtronic Ra Lead (5076-45)-10/22 Implanted:10/07 (Quantity not on file) Lead Chest Medtronic Cardiac Rhythm Mgmt 5076-45 / / Medtronic Rv Lead (5076-52)-10/22 Implanted:10/07 (Quantity not on file) Lead Chest Medtronic Cardiac Rhythm Mgmt 5076-52 / [id number] / Medtronic Pacemaker ([id number])-2019 Implanted:10/09 (Quantity not on file) Pacemaker Chest Medtronic Second Degree AVB [id number] / [id number] / Procedures Procedure Name Priority Date/Time Associated Diagnosis Comments DEVICE CHECK - IN OFFICE Routine 05/16/2025 9:06 AM CDT Second degree atrioventricular block DEVICE CHECK - REMOTE Routine 03/21/2025 9:12 AM CDT Second degree atrioventricular block from Last 3 Months Results * DEVICE CHECK - IN OFFICE (05/16/2025 9:06 AM CDT) Anatomical Region Laterality Modality Other Narrative 05/16/2025 5:25 PM CDT Medtronic Dual Pacemaker Dx; Second Degree AVB. Gen change 11/07/2019-[facility], chronic leads 10/22/2009. [facility] remote home monitoring. Supervising MD: Dr Shaffer. Office DDDR Pacemaker evaluation demonstrates appropriate device function. Appropriate device function and lead measurements noted. Battery-2.98V, 6.5 years remaining battery life to ANA MAR[employer]A. Presenting [id number]. Underlying rhythm-CHB, no ventricular escape @ VVI 30 bpm. Consider Pacer Dependent. 4-mode switch episodes noted, longest 3 min duration, ie's ATach and farfield oversensing of ventricle. No ventricular arrhythmias noted. Medications; ASA, Coreg. No changes made to device settings. See scanned report. [facility] remote f/u 08/22/2025. Office pacemaker f/u 08/21/2026. Sulma Montalvo RN Jeff Shaffer MD [facility] Final Result * DEVICE CHECK - REMOTE (03/21/2025 9:12 AM CDT) Anatomical Region Laterality Modality Other Narrative 04/11/2025 12:20 PM CDT Medtronic Dual Pacemaker Dx; Second Degree AVB. Gen change 11/07/2019-[facility], chronic leads 10/22/2009. [facility] remote home monitoring Routine DDDR Pacemaker Remote. Transmission attached. Battery status: 2.98 V , 6.7 years remaining battery life to ANA MARÍA. Stable lead impedances, pacing and sensing thresholds. Presenting rhythm: /FORGESMITH AP-52.4%, FORGESMITH-100.0% No AT/AF episodes noted. No Ventricular high rate episodes detected. Medications: ASA 81 mg, carvedilol CR 80 mg, Entresto 24-26 mg See scanned report. Office pacemaker follow up: 05/16/25 [facility] remote f/u 5 months. Chris Ross RN Jeff Shaffer MD [facility] Final Result from Last [address] [facility] MEDICARE ADVANTAGE [id number] MEDICARE ADVANTAGE [id number] MEDICARE ADVANTAGE Care Teams Patent Engineer Relationship Specialty Start Date End Date Sorin Hanna MD [address] [facility] [address] [place] [address] PCP - General 11/06/16
--- OUTSIDE RECORDS SUMMARY | 2025-05-30 08:58 | XMS_ITS | Encounter Summary ---
Author Organization [facility] Address [address] [place] [address] Care Team Providers Care Bee Worker Name Role Phone Sorin Hanna MD Primary Care Provider Sorin Hanna MD Primary Care Provider Encounter Details Date Type Department Care Team (Late st Contact Info) Description 09/23/2016 Orders Only [facility] ProviderJanene MD [address] [place] [phone] Social History Tobacco Use Types Packs/Day Years Used Date Smoking Tobacco: Never Assessed Alcohol Use Standard Drinks/Week Comments No 0 (1 standard drink = 0.6 oz pur e alcohol) Comments Unknown Sex and Gender Information Value Date Recorded Sex Assigned at Not on file Legal Sex Female 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
--- OUTSIDE RECORDS SUMMARY | 2025-05-30 08:58 | XMS_ITS | Patient Health Record ---
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 Role Phone Sorin Hanna Primary Care Provider Jennifer Mitchell Unavailable [phone] Huyen Jurado Unavailable [phone] Allergies Allergen (clinical drug ingredient) Drug/Non Drug Allergy documented on EMR Reaction Allergy Type Onset Date Status empagliflozin Jardiance high blood pressure Drug Allergy Active spironolactone Spironolactone dizziness Drug Allergy Active Results Component Value Reference Range Notes URINE DRUG SCREEN Reviewed date:04/16/2025 03:28:41 PM Interpretation: Performing Lab: Notes/Report: CREATININE 25 20.0-297.0 mg/dL ALCOHOL NEGATIVE NEGATIVE OXYCODONE NEGATIVE NEGATIVE AMPHETAMINE NEGATIVE NEGATIVE BENZODIAZEPINE NEGATIVE NEGATIVE COCAINE NEGATIVE NEGATIVE CANNABINOID NEGATIVE NEGATIVE FENTANYL NEGATIVE NEGATIVE OPIATE NEGATIVE NEGATIVE Reason For Referral Reason EMG/NCV INO LE Diagnosis 1 Spinal stenosis, lum bar region with neurogenic claudication (M48.062) Diagnosis 2 Low back pain, unspe cified (M54.50) Diagnosis 3 Intervertebral disc disorders with radiculopathy, lumbosacral region (M51.17) Diagnosis 4 Myelopathy in diseas es classified elsewhere (G99.2) Referral Organization [facility] Referring Provider First Name Jennifer Referring Provider Last Name Helen Referring Provider Speciality Pain Medic ine Referred Provider Zheng Romero Referred Provider Specialty Physical Med icine and Rehabilitation Referral Priority Routine Reason EVAL AND TREAT LOWER BACK AND LE PAIN AND DO BALANCE TRAINING 2-3X/WEEK FOR 12 WEEKS Diagnosis 1 Spinal stenosis, lum bar region with neurogenic claudication (M48.062) Referral Organization [facility] Referring Provider First Name Jennifer Referring Provider Last Name Helen Referring Provider Speciality Pain Medic ine Referred Provider Physical [place] Srinivasan to Referred Provider Specialty Physical The rapist Referral Priority Routine Medications Medication SIG (Take, Route, Frequency, Duration) Notes Start Date End Date Status Coreg CR 80 MG 1 capsule with food Orally Once a day; Duration: 30 day(s) Unknown Losartan Potassium 25 MG 1 tablet Orally Once a day; Duration: 30 day(s) Unknown Multivitamin - 1 tablet Orally Once a day; Duration: 30 day(s) Unknown Atorvastatin Calcium 40 MG 1 tablet Oral ly Once a day; Duration: 30 day(s) Unknown Vitamin C 500 MG as directed Orally Unknown DULoxetine HCl 60 MG 1 capsule Orally On ce a day; Duration: 30 day(s) Unknown Glucosamine 500 MG 1 capsule with a umer l Orally Three times a day; Duration: 30 day(s) Unknown Calcium + D 500-1000-40 MG-UNT-MCG as directed Orally Unknown Aspir-Low 81 MG 1 tablet Orally Once a day; Duration: 30 day(s) Unknown Furosemide 20 MG 1 tablet Orally Once a day; Duration: 30 day(s) Unknown Anoro Ellipta 62.5-25 MCG/INH 1 puff Inhalation Once a day Unknown ALPRAZolam 0.25 MG 1 tablet on the tong ue and allow to dissolve Orally Twice a day Unknown Pantoprazole Sodium 40 MG 1 tablet Orall y Once a day; Duration: 30 day(s) Unknown Social History Tobacco Use: Social History Observation Description Date Details (start date - stop date) Never Smoker NA - NA Tobacco Use/Smoking Question Answer Notes Are you a nonsmoker Alcohol Screen Question Answer Notes Did you have a drink containing alcohol in the p ast year? No Points 0 Interpretation Negative Tobacco use other than smoking: Question Answer Notes Are you an other tobacco user? 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) Active confirmed Problem Therapeutic drug monitoring, quantitative (regime/therapy) (89440926) Encounter for therapeutic drug level monitoring (Z51.81) Active confirmed Problem Lumbosacral radiculopathy (0854783) Intervertebral disc disorders with radiculopathy, lumbosacral region (M51.17) Active confirmed Problem Spinal muscular atrophy (3815983) Spinal muscular atrophy, unspecified (G12.9) Active confirmed Problem Myelopathy due to another disorder (361047843) Myelopathy in diseases classified elsewhere (G99.2) Active confirmed Problem Lumbar sprain (751516875) Sprain of ligaments of lumbar spine, initial encounter (S33.5XXA) Active confirmed Problem Fall (8585761) Unspecified fall , initial encounter (W19.XXXA) Active confirmed Problem Clinical trial participant (268067148) Encounter for examination for normal comparison and control in clinical research program (Z00.6) Active confirmed Problem Long-term current use of drug therapy (882619298) 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 (Z79.899) Active confirmed Problem Depression Screening (606247537) Encounter for screening for depression (Z13.31) Active confirmed Problem Chronic pain syndrome (968410250) Chronic pain syndrome (G89.4) Active confirmed Problem Lumbosacral spondylosis without myelopathy (93628766) Other spondylosis with radiculopathy, lumbar region (M47.26) Active confirmed Problem Sciatica (24921351) Lumbago with sciatica, left side (M54.42) Active confirmed Problem Low back pain (868194561) Low back pain (M54.5) Active confirmed Problem Neurogenic claudication (105065504) Spinal stenosis, lumbar region with neurogenic claudication (M48.062) Active confirmed Problem Low back pain (551039776) Low back pain, unspecified (M54.50) Active confirmed Vital Signs Heart Rate 88 /min 04/16/2025 stop-bang- 2 low risk for [place] ORT- 0 low risk for opioid abuse Temperature 97.5 degrees Fahrenheit 04/16/2025 stop-bang- 2 low risk for [place] ORT- 0 low risk for opioid abuse Respiratory Rate 16 /min 04/16/2025 stop-bang- 2 low risk for [place] ORT- 0 low risk for opioid abuse Blood pressure diastolic 90 mm Hg 04/16/2025 stop-bang- 2 low risk for [place] ORT- 0 low risk for opioid abuse Oximetry 98 % 04/16/2025 stop-bang- 2 low risk for [place] ORT- 0 low risk for opioid abuse Height 65 in 05/21/2025 Blood pressure systolic 131 mm Hg 04/16/2025 stop-bang- 2 low risk for [place] ORT- 0 low risk for opioid abuse Weight 195 lbs 05/21/2025 BMI 32.45 kg/m2 05/21/2025 Procedures Procedure Date Ordered Date Performed Result Body Sit e Lumbar Spinal Orthoses (LSO) 05/02/2025 N/A Encounters Encounter Location Date Provider Diagnosis [facility] [address] [address] 04/16/2025 Jennifer kenzie Encounter for screening for depression Z13.31 ; Spinal stenosis, lumbar region with neurogenic claudication M48.062 ; Other chronic pain G89.29 ; Encounter for therapeutic drug level monitoring Z51.81 ; Other residential (current) drug therapy Z79.899 ; Unspecified fall, initial encounter W19.XXXA ; Myelopathy in diseases classified elsewhere G99.2 ; Intervertebral disc disorders with radiculopathy, lumbosacral region M51.17 and Low back pain, unspecified M54.50 [facility] [address] [address] 05/21/2025 Huyen Wortmann Low back pain, unspecified M54.50 ; Sprain of ligaments of lumbar spine, initial encounter S33.5XXA and Spinal muscular atrophy, unspecified G12.9 [facility] [address] [facility] [place] [id number] 05/02/2025 Huyen Wortmann Spinal muscular atrophy, unspecified G12.9 ; Low back pain, unspecified M54.50 and Sprain of ligaments of lumbar spine, initial encounter S33.5XXA [facility] [address] [facility] [place] [phone] 05/02/2025 Jennifer Mead Assessments Encounter Date Diagnosis (ICD Code) Assessment Notes Treatment Notes Treatment Clinical Notes Section Notes 04/16/2025 Encounter for screening for depression (ICD-10 - Z13.31) 04/16/2025 Spinal stenosis, lumbar region with neurogenic claudication (ICD-10 - M48.062) Patient with recurrence of lower back and LE pain and reports h/o two separate falls in the last one year with one fall injuring her head and neck region. The other fall she tripped over her granddaughter. =====Will need MRI imaging at [facility] - =====Will obtain EMG/NCV ino LE 05/02/2025 Spinal muscular atrophy, unspecified (ICD-10 - G12.9) Will order LSO to otherwise support weak spinal structures and/or a deformed spine; To facilitate healing following injury to spine/related soft tissue; To reduce pain by restricting mobility of the trunk; ======= This note documents the medical necessity for the LSO Back Brace and can provide empirical evidence for its efficacy with regard to this patient's condition. As prescribed, the LSO Back Brace has effective compression to assist in pain control. The brace facilitates the appropriate amount of support both circumferentially as well as accommodating varying amounts of lumbar curvature to maximize both function and compliance. The brace itself is made of a lightweight / breathable material and is designed to provide stabilization while still allowing movement to promote activity and combat the muscle atrophy associated with movement restriction. It is my professional opinion that without this brace, the patient is subject to ongoing and persistent injury/pain despite physical therapy and home exercise program. Back braces have long been known to provide relief from lower back pain. Current clinical research has shown that supporting the lower back can reduce pain, improve functional status and lower the need for powerful pain medications (thus reducing potential dependence or addiction to powerful pain medications). Recently conducted bio-mechanical research indicates that braces can provide significant relief to patients by reducing excessive trunk muscle co-contraction, which prevents muscle spasms from compounding the original pain. In December 2018 the Department of Health and Human Services Pain Management Best Practices Inter-Agency Task Force reported: Bracing has sometimes been discouraged in pain management because of fears of deconditioning and muscle atrophy. However, there is evidence that, for at least short periods of time, bracing (especially nonrigid bracing) may improve function and does not result in muscle dysfunction and bracing should be part of the clinician tool box. References: 1. Jp J, Alok , Ian BUTCHER MEAT, Bibiana SUAREZ. Comparison of trunk stiffness provided by different design characteristics of lumbosacral orthoses. Clinical Biomechanics. 2010. 2. Buck P, Tee-Karthik SM, Van Livia MN, Mena RM, Christina BW. Feasibility of lumbar supports for home care workers with low back pain. Occup Med (Lond). 2002 Sep;52(6):317-233. 3. Jose P. Effectiveness of a Lumbar Belt in Subacute Low Back Pain. Spine. 2009; 34(3):215. 4. Antonia M, Shreya B, Russel HW: Effects of a new spinal orthosis on posture, trunk strength, and quality of life in women with postmenopausal osteoporosis: A randomized trial. Am J Phys Med Rehabil 2004;83:432711. 5. Ania Mccormick, Rajni Flores: Prospective Study of a Lumbar Back Brace In an Interventional Pain Practice: Back bracing may be a cost-effective means of providing immediate relief from low back pain, and can act as an effective bridge to other interventions.6. Jp Friend, Mary Franks. Mary Lanier. The effects of a three-week use of lumbosacral orthoses on trunk muscle activity and on the muscular response to trunk perturbations.7. U.S. Department of Health and Human Services (December). Pain Management Best Practices Inter-Agency Task Force Report: Updates, Gaps, Inconsistencies, and Recommendations. Retrieved from U. S. Department of Health and Human Services website: https://www.hhs.gov/ catherine/advisory-committ ees/pain/reports/ind ex.html. 05/02/2025 Low back pain, unspecified (ICD-10 - M54.50) Will order LSO to otherwise support weak spinal structures and/or a deformed spine; To facilitate healing following injury to spine/related soft tissue; To reduce pain by restricting mobility of the trunk; 05/21/2025 Low back pain, unspecified (ICD-10 - M54.50) LSO Fitting : Back Brace delivered to patient today. R/b/a discussed, all questions answered. ASA 3. 05/21/2025 Sprain of ligaments of lumbar spine, initial encounter (ICD-10 - S33.5XXA) LSO Fitting : Back Brace delivered to patient today. R/b/a discussed, all questions answered. ASA 3. 05/02/2025 Sprain of ligaments of lumbar spine, initial encounter (ICD-10 - S33.5XXA) Will order LSO to otherwise support weak spinal structures and/or a deformed spine; To facilitate healing following injury to spine/related soft tissue; To reduce pain by restricting mobility of the trunk; 04/16/2025 Other chronic pain (ICD-10 - G89.29) Managing Chronic Pain material was printed 04/16/2025 Encounter for therapeutic drug level monitoring (ICD-10 - Z51.81) Patient has been advised and has verbalized understanding and has provided Informed Consent for this provider and this office to perform a urine toxicology/drug test today. Patient has had an opportunity to choose which lab their specimen will be sent to. They have seen, received, and reviewed the paperwork advising them that their lab specimen will be sent for analysis and they have been informed of their right to choose which lab their specimen is sent to. They have been provided an opportunity to refuse to provide the specimen requested. They have also been advised and have verbalized understanding they will not be a candidate for any controlled pain medications from this office if they choose to refuse the toxicology/drug test requested at their current visit. Furthermore, the patient has been advised and has verbalized understanding their lack of participation in the toxicology screen will exclude them from any oral opioid pain medications from this office today and for any future visits in this office. All questions were answered to patient's satisfaction. UDS today for monitoring of prescription medications, adjuvant medications and illicit drug use. Abberrant behavior - Not noted at this time. Will be doing a Random Urine Drug Screen today. 05/21/2025 Spinal muscular atrophy, unspecified (ICD-10 - G12.9) LSO Fitting : Back Brace delivered to patient today. R/b/a discussed, all questions answered. ASA 3. 04/16/2025 Other residential (current) drug therapy (ICD-10 - Z79.899) 04/16/2025 Unspecified fall, initial encounter (ICD-10 - W19.XXXA) Patient with recurrence of lower back and LE pain and reports h/o two separate falls in the last one year with one fall injuring her head and neck region. The other fall she tripped over her granddaughter. =====Will need MRI imaging at [facility] - =====Will obtain EMG/NCV ino LE 04/16/2025 Myelopathy in diseases classified elsewhere (ICD-10 - G99.2) Patient with recurrence of lower back and LE pain and reports h/o two separate falls in the last one year with one fall injuring her head and neck region. The other fall she tripped over her granddaughter. ===== Will need MRI imaging at [facility] - ===== Will obtain EMG/NCV ino LE 04/16/2025 Intervertebral disc disorders with radiculopathy, lumbosacral region (ICD-10 - M51.17) 04/16/2025 Low back pain, unspecified (ICD-10 - M54.50) 04/16/2025 Other Patient has been advised and has verbalized understanding and has provided Informed Consent for this provider and this office to perform a urine toxicology/drug test today. Patient has had an opportunity to choose which lab their specimen will be sent to. They have seen, received, and reviewed the paperwork advising them that their lab specimen will be sent for analysis and they have been informed of their right to choose which lab their specimen is sent to. They have been provided an opportunity to refuse to provide the specimen requested. They have also been advised and have verbalized understanding they will not be a candidate for any controlled pain medications from this office if they choose to refuse the toxicology/drug test requested at their current visit. Furthermore, the patient has been advised and has verbalized understanding their lack of participation in the toxicology screen will exclude them from any oral opioid pain medications from this office today and for any future visits in this office. All questions were answered to patient's satisfaction. UDS today for monitoring of prescription medications, adjuvant medications and illicit drug use. Abberrant behavior - Not noted at this time. Will be doing a Random Urine Drug Screen today. URINE DRUG SCREENING MEDICAL NECESSITY: Patient lives in [place]. The State of [place] is considered to be a MODERATE to HIGH RISK state regarding potential misuse/abuse of controlled substances. In addition, toxicology testing allows for safety monitoring regarding the potential use of poly-pharmaceutical( s) and potential for medication interactions. SOAPP-R score recorded in medical record. PUBLIC HEALTH CRISIS: The Opioid Epidemic is a Public Health Crisis as determined by the Federal Government. The opioid epidemic is a source of deep national anguish in the [place]: It now kills almost 100 Americans each day, more than motor vehicle accidents. President Marcus Alas has officially declared the epidemic a national public health emergency, which should accelerate efforts at the federal, state, and local levels to identify and implement ways to combat it. Every part of the country is battling opioid addiction. Definitive data on prevalence of the problem comes from the National Survey on Drug Abuse and Health, which surveyed 51,200 Americans in 2015. Based on weighted estimates, 92 million, or 37.8%, of [place] adults used prescription opioids the prior year (2014); 11.5 million, or 4.7%, misused them; and 1.9 million, or 0.8%, had a use disorder. The epidemic is spreading so rapidly that the numbers are likely higher now. In addition, if patient is a tobacco user, they have been counseled on the negative effects of tobacco and/or nicotine use. Nicotine is a major component of chemicals contained in cigarettes. It is also found in vaporizers and/or other tobacco products. The quick absorption of nicotine into the blood stimulates the adrenals to release epinephrine, which then incites to central nervous system causing increased heart rate, respiratory rate, and blood pressure. Nicotine also increases the levels of dopamine, which controls pleasure and reward, just as an heroin and cocaine. The chronic exposure to nicotine, may lead to addiction to nicotine, in particular, and act as a gateway to possible addiction in general (Reference:: National [place] on Drug Abuse. Cigarettes and other tobacco products. Available at http://www.drugabuse .gov/publications/dr ugfacts/cigarettes-o pdgm-hrckoiw-prpvojr s). Compared to nonsmokers, smokers treated with chronic opioid therapy for non-malignant pain use higher doses of opioids, putting them at increased risk of misuse and dependence on opioids. Research indicates that despite having an opioid misuse disorder and being on higher opioid doses, current and former smokers were resistant to decrease chronic opioid therapy; the perceived that he has lesser problems with opioid use (Frida RIUT, Beckie D, Jonna C, Von Melody M, Jaziel Cl. Smoking Status and Opioid-related problems and concerns among men and women on chronic opioid therapy. Clin J Pain. 2017; 33(8):730-737). URINE DRUG SCREENING MEDICAL NECESSITY: The U.S. Federation of State Medical Boards, APS, AAPM, and ASIPP all recommend random/routine UDTs for patients with chronic pain in treatment. Chronic pain patients not receiving controlled substances can also benefit from random UDT since there are higher rates of drug misuse, abuse, and addiction in this population. Caring for and treating patients on controlled substances poses unique challenges for both physicians and their staff. These challenges are serious and include: patients providing false and misleading medical histories, not maintaining compliance with therapeutic drug regimens and using illicit drugs. Patients non-compliant behavior with prescribed medications, such as combining medications or using illicit drugs with legally prescribed ones, can result in harm to themselves and others. So the urine Drug screening can help improve patient safety as it relates to accurately establishing medication use, identifying dangerous drug to drug cross-reactions and avoiding false patient dismissals based on inconsistent immunoassay tests. -To monitor patient's compliance -To monitor patient's safety -To monitor patient's pain control -To monitor any side effects, cross-reactions. Urine Drug Screen has been completed today for possible use and suspicion of illicit drug use and/or compliance monitoring measures. The author of this note (Physician or Nurse Practitioner) has discussed side effects of opioid and medication therapies including the potential for addiction/tolerance/ abuse/diversion. Also discussed the Opioid Agreement in detail and answered all questions. If patient is on NSAIDs and or /other adjuvant pain medications, we have also discussed side effects of NSAIDs and other pain medication and/or muscle relaxants in detail, including the risk of GI bleed, Gastric irritation or esophagitis from pain medications including but not limited to NSAIDs. Also discussed possibility of cardiac side effects including myocardial infarctions and possible cerebral infarcts of NSAIDS as well. Patient verbalized understanding. The risks of opioid/narcotic therapy including potential addiction/abuse, sedation, risk for falls, and constipation were discussed. The theory behind hyperalgesia with chronic use was also discussed. Pt is advised that while on these medications he/she is not to drive, operate heavy machinery, climb ladders or heights, and they are to use them sparingly for relief of severe pain. The patient understands that if they misuse or do not follow our current plan of care, they may be terminated from my care and will be asked to find another physician. The patient expresses understanding of these issues and questions were answered. References 1. Myla TREVINO, Ravi Mantilla. The economic costs of pain in the [place]. J Pain 2012;13:715-24. 2. Yamilka Waters, Jordan SHIN, et al. Importance of urine drug testing in the treatment of chronic noncancer pain: Implications of recent medicare policy changes in [place]. Pain Physician 2010;13:167-86. 3. Yamilka Waters, Jordan SHIN, et al. Urine drug testing in the treatment of chronic noncancer pain in a [place] private neuroscience practice: The potential effect of medicare benefit changes in [place]. Pain Physician 2010;13:187-94. 4. Adeel EJ, Collins YH, Troy DL, et al. Urine drug testing of chronic pain patients: Licit and illicit drug patterns. J Anal Toxicol 2008;32:530-43. 5. Simran L, Sigifredo KA, Javi KS, et al. Controlled substance abuse and illicit drug use in chronic pain patients: An evaluation of multiple variables. Pain Physician 2006;9:215-25. 6. Abdoulaye OCAMPO, Johnny PABLO, Sky P, et al. Analysis and interpretation of drug testing results from patients on chronic pain therapy: A clinical laboratory perspective. Clin Chem Lab Med 2009;47:971-6. 7. Bebe Nguyen, Samuel RN, Jess LD, et al. Urine toxicology screening among chronic pain patients on opioid therapy: Frequency and predictability of abnormal findings. Clin J Pain 2007;23:173-9. 8. Grojudithwald CB, Bharatner BS, Han D, et al. The economic costs of chronic pain among a cohort of treatment-seeking adolescents in the [place]. J Pain 2014;15: 925-33. 9. Prince RODRÍGUEZ, Simran Drake, Chad X, et al. Urine drug testing in chronic pain. Pain Physician 2011;14:123-43. 10. Zach TJ, Yaya IN, Yuliana CA, et al. Predictors of opioid misuse in patients with chronic pain: A prospective cohort study. BMC Health Serv Res 2006;6:46. 11. Simran Drake, Nilda R, Nate V, et al. Does random urine drug testing reduce illicit drug use in chronic pain patients receiving opioids? Pain Physician 2006;9:123-9. 12. Simran Drake, Sherri S, Jacqueline GOMEZ, et al. Monitoring opioid adherence in chronic pain patients: Tools, techniques, and utility. Pain Physician 2008;11:S155-80. 13. Jacqueline GOMEZ, Carlton MV, Sherri SL, et al. Opioid guidelines in the management of chronic non-cancer pain. Pain Physician 2006;9:1-39. 14. Jacqueline GOMEZ, Praveena S, Olmos H, et al. Opioids in the management of chronic non-cancer pain: An update of [place] Society of the Interventional Pain Physicians' (ASIPP) guidelines. Pain Physician 2008;11:S5-62. 15. Pao Devlin, Adela , et al. KIMS, CEDIA, and HS-CEDIA immunoassays are inadequately sensitive for detection of benzodiazepines in urine from patients treated for chronic pain. Pain Physician 2014;17:359-66. 16. Simran Drake, Jatin Y, Dl GEORGES, et al. Comparative evaluation of the accuracy of benzodiazepine testing in chronic pain patients utilizing immunoassay with liquid chromatography tandem mass spectrometry (LC/MS/MS) of urine drug testing. Pain Physician 2011;14:259-70. 17. Abdoulaye OCAMPO, Pao CARTAGENA, Sky P, et al. A new highly specific buprenorphine immunoassay for monitoring buprenorphine compliance and abuse. J Anal Toxicol 2012;36:201-6. 18. Jason Stuart, Shayan P, Bryant Jorge, et al. LC-MS/MS extends the range of drug analysis in pain patients. Ther Drug Monit 2009;31:746-8. 19. Pj Hutton, Jace Spivey, Bryant Jorge, et al. An evaluation of the diagnostic accuracy of liquid chromatography-tande m mass spectrometry versus immunoassay drug testing in pain patients. Pain Physician 2010;13:273-81. 20. Pelon ROJAS, Roselyn SANCHEZ, Jillian DA, et al. Urinary buprenorphine concentrations in patients treated with suboxone as determined by liquid chromatography-mass spectrometry and CEDIA immunoassay. J Anal Toxicol 2008;32:516-21. 21. Anil B, Buddy T. Urine drug testing for pain management. Clin Lab Med 2012;32:379-90. 22. Abdoulaye OCAMPO, Meg ROJAS, Pao ML, et al. Significant cost savings achieved by in-sourcing urine drug testing for monitoring medication compliance in pain management. Clin Anna Acta 2013;422:10-4. 23. Abdoulaye OCAMPO, Adela , Anel AD. Optimizing urine drug testing for monitoring medication compliance in pain management. Pain Med 2013;14:1813-20. Plan Of Treatment Pending Test Test Name Order Date Electrocardiogram (EKG) 05/12/2021 Urinalysis, Routine 05/12/2021 CBC With Differential/Platelet MRSA (MecA) DNA PCR 05/12/2021 Comp. Metabolic Panel (14) 05/12/2021 MRI : Brain with and without contrast MRI Cervical without Contrast 04/16/2025 MRI Lumbar without contrast 01/20/2021 MRI Lumbar without contrast 04/16/2025 MRI Thoracic without Contrast 04/16/2025 Lumbar Spinal Orthoses (LSO) 05/02/2025 URINE DRUG SCREEN 04/16/2025 Next Appt Details Provider Name:Jennifer Cervantes, 06/04/2025 07:45:00 AM, [address] [facility], [address], [place], [address], Insurance Providers Payer Name Payer Address Payer Phone Subscriber Number Group Number Insured Name Patient Relationship to Insured Coverage Start Date Coverage End Date AARP MEDICARE COMPLETE [address] [address] [place] [address] [id number] Reyna Ponce Self - patient is the insured Medical (General) History Medical History History ICD Code pacemaker hypertension chronic obstructive pulmonary disease (C OPD) left ventricle branch block Surgical History Surgery Date(Month/Year) hysterectomy appendectomy tonsillectomy bunionectomy L3/L4 L4/L5 minimally invasive lumbar de compression with Dr Cervantes 06/11/2021 Hospitalization History Reason Date(Month/Year) see surgical history
== END 2025-05-30 08:35 | disposition home or self-care (01) ==
LOC: CHSIMG 08:35
PROVIDERS: PCP Family Medicine; Visit Provider Physician Assistant
DX: Z12.31 Encounter for screening mammogram for malignant neoplasm of breast (principal); R92.8 Other abnormal and inconclusive findings on diagnostic imaging of breast
CPT/HCPCS: 77063; 77067

== ENCOUNTER 2025-06-22 08:31 | Outpatient (CLI) | payer MEDICARE, SELFPAY ==
--- OUTSIDE RECORDS SUMMARY | 2002-02-06 05:15 | XMS_ITS | Continuity of Care Document ---
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 [address] [facility] [address] , [address], [place], [address], [place]. tel:[phone] Family History Family Member Type Diagnosis Age At Onset No Information Payers Payer name Insurance type Covered alliance party ID Authoriza tion(s) No Information Social History Type Description Quantity Date Captured Comments Sex Female Smoking Status No Information Chief Complaint And Reason For Visit No Information Reason For Referral Reason For Referral No Information History Of Present Illness Encounter Date Complaint History Of Prese nt Illness No Information Functional Status Date Functional Assessmen t No Information Instructions Date Instruction Additional Infor mation No Information Assessments Type Assessment Date No Information Patient Care Teams Name Effective Dates (start - stop) Status Members No Information
--- NOTE | ~2025-06-22 | MMUS_ITS ---
EXAMINATION: MM diagnostic grant RT w julia, US breast RT limited HISTORY: Follow-up right breast asymmetry TECHNIQUE: Additional 3-D tomosynthesis images of the right breast were performed and synthetic 2-D images were generated. CAD analysis was submitted and interpreted. High resolution Limited right breast ultrasound was performed. COMPARISON: Comparison to multiple prior studies sequentially, with oldest reviewed study dated 05/11/2017. BREAST PARENCHYMAL COMPOSITION: Not dense: There are scattered areas of fibroglandular density. FINDINGS: MAMMOGRAPHIC FINDINGS: There are no suspicious masses, calcifications or architectural distortion in the right breast to suggest malignancy. ULTRASOUND: Limited right breast ultrasound: Normal heterogeneous echotexture without focal solid or cystic mass. IMPRESSION: 1. No evidence for malignancy in the right breast. 2. Routine yearly screening mammogram and regular clinical breast examination are recommended. BI-RADS Category 1: Negative Reviewed, dictated and finalized at location B. E MAIL SYSTEM ADMINISTRATOR IMPRESSION: 1. No evidence for malignancy in the right breast. 2. Routine yearly screening mammogram and regular clinical breast examination a re recommended. BI-RADS Category 1: Negative
--- OUTSIDE RECORDS SUMMARY | 2025-06-22 08:45 | XMS_ITS | Patient Health Record ---
Author Organization [facility] Address [address] [facility] [place] [id number] Care Team Providers Care Textile Examiner Name Role Phone Sorin Hanna Primary Care Provider Jennifer Mitchell Unavailable [phone] Huyen Jurado Unavailable [phone] Allergies Allergen (clinical drug ingredient) Drug/Non Drug [...] diseas es classified elsewhere (G99.2) Referral Organization [facility] Referring Provider First Name Jennifer Referring Provider Last Name Helen Referring Provider Speciality Pain Medic ine Referred Provider Zheng Romero Referred Provider Specialty Physical Med icine and Rehabilitation Referral Priority Routine Reason EVAL AND TREAT LOWER BACK AND LE PAIN AND DO BALANCE TRAINING 2-3X/WEEK FOR 12 WEEKS Diagnosis 1 Spinal stenosis, lum bar region with neurogenic claudication (M48.062) Referral Organization [facility] Referring Provider First Name Ram Referring Provider Last Name [facility] Referring Provider Speciality Pain Medic ine Referred Provider Physical [place] Srinivasan to Referred Provider Specialty Physical The rapist Referral Priority Routine Reason EVAL AND TREAT - CER VICAL SPINAL AND LUMBAR SPINAL STENOSIS AND MYELOPATHY Diagnosis 1 Myelopathy in diseas es classified elsewhere (G99.2) Diagnosis 2 Spinal stenosis, lum bar region with neurogenic claudication (M48.062) Diagnosis 3 Spinal stenosis, cer vical region (M48.02) Referral Organization [facility] [place] Referring Provider First Name [facility] Referring Provider Last Name [facility] Referring Provider Speciality Pain Medic ine Referred Provider Tan Han Referred Provider Specialty Neurological Surgery Referral Priority Routine Medications Medication SIG (Take, Route, Frequency, Duration) Notes Start Date End Date Status Multivitamin - 1 tablet Orally Once a day; Duration: 30 day(s) Active Atorvastatin Calcium 40 MG 1 tablet Oral ly Once a day; Duration: 30 day(s) Active Entresto 24-26 MG 1 tablet Orally Twic e a day Active Losartan Potassium 25 MG 1 tablet Orally Once a day; Duration: 30 day(s) Active Vitamin C 500 MG as directed Orally Active Calcium + D 500-1000-40 MG-UNT-MCG as directed Orally Active Glucosamine 500 MG 1 capsule with a umer l Orally Three times a day; Duration: 30 day(s) Active Furosemide 20 MG 1 tablet Orally Once a day; Duration: 30 day(s) Active Aspir-Low 81 MG 1 tablet Orally Once a day; Duration: 30 day(s) Active ALPRAZolam 0.25 MG 1 tablet on the tong ue and allow to dissolve Orally Twice a day Active Anoro Ellipta 62.5-25 MCG/INH 1 puff Inhalation Once a day Active Coreg CR 80 MG 1 capsule with food Orally Once a day; Duration: 30 day(s) Active Pantoprazole Sodium 40 MG 1 tablet Orall y Once a day; Duration: 30 day(s) Active DULoxetine HCl 60 MG 1 capsule Orally On ce a day; Duration: 30 day(s) Active Social History Tobacco Use: Social History Observation [...] W/U Status Risk Notes Problem Chronic pain (03442593) Other chronic pain (G89.29) Active confirmed Problem Chronic pain syndrome (685668007) Chronic pain syndrome (G89.4) Active confirmed Problem Hereditary disorder of nervous system (103539305) Hereditary and idiopathic neuropathy, unspecified (G60.9) Active confirmed Problem Other hereditary and idiopathic neuropathies (G60.8) Active confirmed Problem Therapeutic drug monitoring, quantitative (regime/therapy) (71526625) Encounter for therapeutic drug level monitoring (Z51.81) Active confirmed Problem Lumbosacral radiculopathy (0137435) Intervertebral disc disorders with radiculopathy, lumbosacral region (M51.17) Active confirmed Problem Spinal muscular atrophy (8169944) Spinal muscular atrophy, unspecified (G12.9) Active confirmed Problem Myelopathy due to another disorder (965248692) Myelopathy in diseases classified elsewhere (G99.2) Active confirmed Problem Spinal stenosis in cervical region (07648940) Spinal stenosis, cervical region (M48.02) Active confirmed Problem Lumbar sprain (927078111) Sprain of ligaments of lumbar spine, initial encounter (S33.5XXA) Active confirmed Problem Fall () Unspecified fall , initial encounter (W19.XXXA) Active confirmed Problem Clinical trial participant (086220405) Encounter for examination for normal comparison and control in clinical research program (Z00.6) Active confirmed Problem Long-term current use of drug therapy (283417406) Other long term care administrator (current) drug therapy (Z79.899) Active confirmed Problem Depression Screening (718964963) Encounter for screening for depression (Z13.31) Active confirmed Problem Chronic pain syndrome (628118714) Chronic pain syndrome (G89.4) Active confirmed Problem Lumbosacral spondylosis without myelopathy (41469093) Other spondylosis with radiculopathy, lumbar region (M47.26) Active confirmed Problem Sciatica (36983101) Lumbago with sciatica, left side (M54.42) Active confirmed Problem Low back pain (142391277) Low back pain (M54.5) Active confirmed Problem Neurogenic claudication (641207776) Spinal stenosis, lumbar region with neurogenic claudication (M48.062) Active confirmed Problem Low back pain (013310947) Low back pain, unspecified (M54.50) Active confirmed Vital Signs Heart Rate 66 /min 06/04/2025 Temperature 96.6 degrees Fahrenheit 06/04/2025 Respiratory Rate 16 /min 06/04/2025 Blood pressure diastolic 60 mm Hg 06/04/2025 Oximetry 96 % 06/04/2025 Height 65 in 06/04/2025 Blood pressure systolic 92 mm Hg 06/04/2025 Weight 178 lbs 06/04/2025 BMI 29.62 kg/m2 06/04/2025 Procedures Procedure Date Ordered Date Performed Result Body Sit e Lumbar Spinal Orthoses (LSO) 05/02/2025 N/A Encounters Encounter Location Date Provider Diagnosis [facility] [address] [place] [address] 04/16/2025 [facility] Encounter for screening for depression Z13.31 ; Spinal stenosis, lumbar region with neurogenic claudication M48.062 ; Other chronic pain G89.29 ; Encounter for therapeutic drug level monitoring Z51.81 ; Other long term care administrator (current) drug therapy Z79.899 ; Unspecified fall, initial encounter W19.XXXA ; Myelopathy in diseases classified elsewhere G99.2 ; Intervertebral disc disorders with radiculopathy, lumbosacral region M51.17 and Low back pain, unspecified M54.50 [facility] [address] [place] [address] 05/21/2025 Huyen Wortmann Low back pain, unspecified M54.50 ; Sprain of ligaments of lumbar spine, initial encounter S33.5XXA and Spinal muscular atrophy, unspecified G12.9 [facility] [address] [place] [address] [place] [address] 06/04/2025 [facility] Spinal stenosis, lumbar region with neurogenic claudication M48.062 ; Myelopathy in diseases classified elsewhere G99.2 ; Encounter for screening for depression Z13.31 ; Other chronic pain G89.29 ; Encounter for therapeutic drug level monitoring Z51.81 ; Other long term care administrator (current) drug therapy Z79.899 ; Unspecified fall, initial encounter W19.XXXA ; Intervertebral disc disorders with radiculopathy, lumbosacral region M51.17 ; Low back pain, unspecified M54.50 and Spinal stenosis, cervical region M48.02 [facility] [address] [facility] [place] [place] [id number] 05/02/2025 Huyen Wortmann Spinal muscular atrophy, unspecified G12.9 ; Low back pain, unspecified M54.50 and Sprain of ligaments of lumbar spine, initial encounter S33.5XXA [facility] [address] [facility] [place] [id number] 05/02/2025 Jennifer Cervantes Assessments Encounter Date Diagnosis (ICD Code) Assessment Notes Treatment Notes Treatment Clinical Notes Section Notes 04/16/2025 Spinal stenosis, lumbar region with neurogenic claudication (ICD-10 - M48.062) Patient with recurrence of lower back and LE pain and reports h/o two separate falls in the last one year with one fall injuring her head and neck region. The other fall she tripped over her granddaughter. =====Will need MRI imaging at [facility] - =====Will obtain EMG/NCV ino LE 04/16/2025 Encounter for screening for depression (ICD-10 - Z13.31) 05/02/2025 Spinal muscular atrophy, unspecified (ICD-10 - [...] the clinician tool box. References: 1. Jp Friend, Alok , Ian DIAGNOSTIC TECHNICIAN, Bibiana DC. Comparison of trunk stiffness provided by different design characteristics of lumbosacral orthoses. Clinical Biomechanics. 2010. 2. Buck P, Tee-Karthik SM, Van Hoal MN, Guanacosen RM, Christina BW. Feasibility of lumbar supports [...] randomized trial. Am J Phys Med Rehabil 2004;83:664714. 5. Ania Mccormick, Rajni Flores: Prospective Study [...] R/b/a discussed, all questions answered. ASA 3. 06/04/2025 Myelopathy in diseases classified elsewhere (ICD-10 - G99.2) Refer to [facility] [place] spine - Will refer to Dr Tan Han - 06/04/2025 Spinal stenosis, lumbar region with neurogenic claudication (ICD-10 - M48.062) Severe LSS/ZULEMA - refer to [facility] [place] [place] spine 06/04/2025 Encounter for screening for depression (ICD-10 - Z13.31) 05/21/2025 Sprain of ligaments of lumbar spine, [...] R/b/a discussed, all questions answered. ASA 3. 06/04/2025 Other chronic pain (ICD-10 - G89.29) Managing Chronic Pain material was printed, Managing Chronic Pain material was printed 06/04/2025 Encounter for therapeutic drug level monitoring (ICD-10 - Z51.81) 04/16/2025 Other shelter (current) drug therapy (ICD-10 - Z79.899) 04/16/2025 Unspecified fall, initial encounter (ICD-10 - W19.XXXA) Patient with recurrence of lower back and LE pain and reports h/o two separate falls in the last one year with one fall injuring her head and neck region. The other fall she tripped over her granddaughter. =====Will need MRI imaging at [facility] - =====Will obtain EMG/NCV ino LE 06/04/2025 Other shelter (current) drug therapy (ICD-10 - Z79.899) 06/04/2025 Unspecified fall, initial encounter (ICD-10 - W19.XXXA) 04/16/2025 Myelopathy in diseases classified elsewhere (ICD-10 - G99.2) Patient with recurrence of lower back and LE pain and reports h/o two separate falls in the last one year with one fall injuring her head and neck region. The other fall she tripped over her granddaughter. ===== Will need MRI imaging at [facility] - ===== Will obtain EMG/NCV ino LE 06/04/2025 Intervertebral disc disorders with radiculopathy, lumbosacral region (ICD-10 - M51.17) 04/16/2025 Intervertebral disc disorders with radiculopathy, lumbosacral region (ICD-10 - M51.17) 04/16/2025 Low back pain, unspecified (ICD-10 - M54.50) 06/04/2025 Low back pain, unspecified (ICD-10 - M54.50) 06/04/2025 Spinal stenosis, cervical region (ICD-10 - M48.02) 04/16/2025 Other Patient has been advised and [...] DRUG SCREENING MEDICAL NECESSITY: Patient lives in [place]. The [place] is considered to be a MODERATE to [...] weighted estimates, 92 million, or 37.8%, of [place] adults used prescription opioids the prior year [...] to possible addiction in general (Reference:: National [place] on Drug Abuse. Cigarettes and other tobacco products. Available at http://www.drugabuse .gov/publications/dr ugfacts/cigarettes-o gwdt-seajktj-jyexvik s). Compared to nonsmokers, smokers treated with [...] has lesser problems with opioid use (Frida RITU, Beckie D, Jonna C, Louis Oliver M, Jaziel Cl. Smoking Status and Opioid-related [...] the [place]. J Pain 2012;13:715-24. 2. Richardson WILSON, Yamilka ALEJANDRE, Jordan SHIN, et al. Importance of urine drug testing in the treatment of chronic noncancer pain: Implications of recent medicare policy changes in [place]. Pain Physician 2010;13:167-86. 3. Richardson WILSON, Yamilka ALEJANDRE, Jordan SHIN, et al. Urine drug testing in the treatment of chronic noncancer pain in a [place] private neuroscience practice: The potential effect of medicare benefit changes in [place]. Pain Physician 2010;13:187-94. 4. Adeel EJ, Collins YH, Troy DL, et al. Urine drug testing of chronic pain patients: Licit and illicit drug patterns. J Anal Toxicol 2008;32:530-43. 5. Simran L, Sigifredo KA, Javi KS, et al. Controlled substance abuse and illicit drug use in chronic pain patients: An evaluation of multiple variables. Pain Physician 2006;9:215-25. 6. Abdoulaye SE, Johnny DE, Sky P, et al. Analysis and interpretation of drug testing results from patients on chronic pain therapy: A clinical laboratory perspective. Clin Chem Lab Med 2009;47:971-6. 7. Samuel Hernandez RN, Jess LD, et al. Urine toxicology screening among chronic pain patients on opioid therapy: Frequency and predictability of abnormal findings. Clin J Pain 2007;23:173-9. 8. Beatris CB, Josafat BS, Guille D, et al. The economic costs of chronic pain among a cohort of treatment-seeking adolescents in the [place]. J Pain 2014;15: 925-33. 9. Prince RODRÍGUEZ, Simran Drake, Chad X, et al. Urine drug testing in chronic pain. Pain Physician 2011;14:123-43. 10. Zach TJ, Yaya AK, Yuliana CA, et al. Predictors of opioid misuse in patients with chronic pain: A prospective cohort study. BMC Health Serv Res 2006;6:46. 11. Simran Drake, Nilda Jorge, Nate V, et al. Does random urine drug testing reduce illicit drug use in chronic pain patients receiving opioids? Pain Physician 2006;9:123-9. 12. Simran Drake, Sherri S, Jacqueline GOMEZ, et al. Monitoring opioid adherence in chronic pain patients: Tools, techniques, and utility. Pain Physician 2008;11:S155-80. 13. Jacqueline GOMEZ, Carlton HARRIS, Sherri SL, et al. Opioid guidelines in the management of chronic non-cancer pain. Pain Physician 2006;9:1-39. 14. Jacqueline GOMEZ, Praveena S, Olmos H, et al. Opioids in the management of chronic non-cancer pain: An update of [place] Society of the Interventional Pain Physicians' (ASIPP) guidelines. Pain Physician 2008;11:S5-62. 15. Jillian Hutton, Pao CARTAGENA, Adela , et al. KIMS, CEDIA, and HS-CEDIA immunoassays are inadequately sensitive for detection of benzodiazepines in urine from patients treated for chronic pain. Pain Physician 2014;17:359-66. 16. Jatin Suggs Y, Dl BW, et al. Comparative evaluation of the accuracy of benzodiazepine testing in chronic pain patients utilizing immunoassay with liquid chromatography tandem mass spectrometry (LC/MS/MS) of urine drug testing. Pain Physician 2011;14:259-70. 17. Abdoulaye OCAMPO, Pao CARTAGENA, Sky P, et al. A new highly specific buprenorphine immunoassay for monitoring buprenorphine compliance and abuse. J Anal Toxicol 2012;36:201-6. 18. Jason C, Shayan P, Bryant R, et al. LC-MS/MS extends the range of drug analysis in pain patients. Ther Drug Monit 2009;31:746-8. 19. Pj A, Jace M, West R, et al. An evaluation of the diagnostic accuracy of liquid chromatography-tande m mass spectrometry versus immunoassay drug testing in pain patients. Pain Physician 2010;13:273-81. 20. Pelon ROJAS, Roselyn MF, Jillian DA, et al. Urinary buprenorphine concentrations [...] Orthoses (LSO) 05/02/2025 URINE DRUG SCREEN 04/16/2025 Insurance Providers Payer Name Payer Address Payer Phone Subscriber Number Group Number Insured Name Patient Relationship to Insured Coverage Start Date Coverage End Date AARP MEDICARE COMPLETE [address] [address] [place] [address] [phone] [id number] KrisReyna rae Self - patient is the insured Medical (General) History Medical History History ICD Code pacemaker hypertension chronic obstructive pulmonary disease (C OPD) left ventricle branch block Surgical History Surgery Date(Month/Year) hysterectomy appendectomy tonsillectomy bunionectomy L3/L4 L4/L5 minimally invasive lumbar de compression with Dr Cervantes 06/11/2021 Hospitalization History Reason Date(Month/Year) see surgical history
--- OUTSIDE RECORDS SUMMARY | 2025-06-22 08:45 | XMS_ITS | Encounter Summary ---
Author Organization [facility] Address [address] [facility] [address] [place] [address] Care Team Providers Care Credentialing Assistant Name Role Phone Sorin Hanna MD Primary Care Provider Sorin Hanna MD Primary Care Provider Encounter Details Date Type Department Care Team (Late st Contact Info) Description 09/23/2016 Orders Only [facility] ProviderJanene MD [address] [place] [address] Social History Tobacco Use Types Packs/Day Years Used Date Smoking Tobacco: Never Assessed Alcohol Use Standard Drinks/Week Comments No 0 (1 standard drink = 0.6 oz pur e alcohol) Comments Unknown Sex and Gender Information Value Date Recorded Sex Assigned at Not on file Legal Sex 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
--- OUTSIDE RECORDS SUMMARY | 2025-06-22 08:45 | XMS_ITS | Patient Health Record ---
Author Organization [facility] Address [address] [facility] [address] [place] [address] Care Team Providers Care Production Checker Name Role Phone Sorin Hanna MD Primary Care Provider UnavailZheng Polk Unavailable [phone] Reason For Referral No Information Problems Problem Type SNOMED Code ICD Code Onset Dates Problem Status W/U Status Risk Notes Problem Neurogenic claudication (102148682) Spinal stenosis, lumbar region with neurogenic claudication [...] N/A Encounters Encounter Location Date Provider Diagnosis [facility] [address] [facility] [address] [place] [address] 05/08/2025 Zheng Romero Spinal stenosis, lumbar region [...] Insured Coverage Start Date Coverage End Date [facility] Medicare Advantage [facility] [address] [address] [place] [id number] Reyna Ponce Self - patient is the insured
--- OUTSIDE RECORDS SUMMARY | 2025-06-22 08:45 | XMS_ITS | Encounter Summary ---
Author Organization [facility] Address [address] [place] [address] Care Team Providers Care Dairy Management Specialist Name Role Phone Sorin Hanna MD Primary Care Provider Encounter Details Date Type Department Care Team (Late st Contact Info) Description 12/30/2016 Orders Only [facility] Provider, MD [address] [place] [address] Social History Tobacco Use Types Packs/Day Years Used Date Smoking Tobacco: Never Assessed Alcohol Use Standard Drinks/Week Comments No 0 (1 standard drink = 0.6 oz pur e alcohol) Comments Unknown Sex and Gender Information Value Date Recorded Sex Assigned at Not on file 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
--- OUTSIDE RECORDS SUMMARY | 2025-06-22 08:45 | XMS_ITS | Encounter Summary ---
Author Organization [facility] Address [address] [place] [address] Care Team Providers Care Process Technician Name Role Phone Sorin Hanna MD Primary Care Provider Encounter Details Date Type Department Care Team (Late st Contact Info) Description 12/16/2021 Orders Only [facility] Health Information Management [address] [place] [id number] Scanning, Provider Social History Tobacco Use Types Packs/Day Years Used Date Smoking Tobacco: Never Smokeless Tobacco: Never Alcohol Use Standard Drinks/Week Comments No 0 (1 standard drink = 0.6 oz pur e alcohol) Comments Unknown Sex and Gender Information Value Date Recorded Sex Assigned at Not on file 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 Gender Identity Female 09/13/2019 10:03 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 Sexual Orientation Not on file documented as of this encounter Plan of Treatment Not on file documented as of this encounter Procedures Procedure Name Priority Date/Time Associated Diagnosis Comments SCAN - LABS 12/16/2021 documented in this encounter Results * SCAN - LABS (12/16/2021) us Provider Scanning Edited Result - Final documented in this encounter Visit Diagnoses Not on filedocumented in this encounter Care Teams Process Technician Relationship Specialty Start Date End Date Sorin Hanna MD [address] [facility] [address] [place] [address] PCP - General 11/06/16 documented as of this encounter
--- OUTSIDE RECORDS SUMMARY | 2025-06-22 08:45 | XMS_ITS | Clinical Summary ---
Author Organization [facility] [address] Address [address] [place] [address] Care Team Providers Care Home Health Registered Nurse Name Role Phone Sorin Hanna MD Primary [...] enteric coated tabletIndicatio ns:Coronary artery disease involving [place] coronary artery of [place] heart without angina pectoris Take 1 tablet [...] tabletIndicatio ns:Pure hypercholestero lemia,Coronary artery disease involving [place] coronary artery of [place] heart without angina pectoris Take 1 tablet [...] syndrome 02/16/2022 Coronary artery disease invo lving [place] coronary artery of [place] heart without angina pectoris 07/04/2021 ERIC (dyspnea on exertion) 03/22/2018 Dilated cardiomyopathy (CMS/HCC) 03/16/2016 Overview (11/11/2016): Cardiomyopathy Abnormal cardiovascular stress test 03/16/2016 Overview (11/11/2016): Abnormal stress test Pure hypercholesterolemia 03/18/2015 Overview (11/13/2016): Hyperlipidemia Complete heart block 02/26/2014 Overview (11/13/2016): CHB (complete heart block) Pacemaker 02/26/2014 Overview (11/09/2019): Medtronic Dual Pacemaker Dx; Second Degree AVB. Gen change 11/07/2019-[facility], chronic leads 10/22/2009. Carelink remote home monitoring. [...] Description 05/16/2025 9:30 AM CDT Ancillary Procedure [facility] Card[facility] [address] [place] [id number] Pacemaker (Primary Dx); Second degree atrioventricular block 05/16/2025 Orders Only [facility] Cardiology [address], [place] [address] Jeff Shaffer MD Second degree atrioventricular block (Primary Dx); Pacemaker from Last 3 Months Surgical History Surgery Date Site/Laterality Comments HYSTERECTOMY Hysterectomy APPENDECTOMY CHOLECYSTECTOMY HERNIA REPAIR Medical History Medical History Date Comments Sinusitis sinusitis Anemia anemia Anxiety Arthritis Heart disease Hypertension Family History Medical History Relation Name Comments spinal bifida Brother 1 of enlarged heart, 6 months old Brother 2 COPD Father Valentino F. Harman,Sr Cancer Father Valentino F. Kennethansonck,Sr Depression Father Valentino F. Harman,Sr Hypertension Father Valentino F. Breonnakenbrock,Sr Lung cancer Father Valentino F. Lickenbrock,Sr Obesity Father Valentino F. Lickenbrock,Sr Stroke Father Valentino F. 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 Sexual Orientation Not on file Last Filed [...] 07/10/2019, 05/09/2019 Medical Devices Implanted Type Area Web Services Manager Device Identifier Shelf Expiration Date Model / Serial / Lot Medtronic Ra Lead (5076-45)-10/22 Implanted:10/07 (Quantity not on file) Lead Chest Medtronic Cardiac Rhythm Mgmt 5076-45 / / Medtronic Rv Lead (5076-52)-10/22 Implanted:10/07 (Quantity not on file) Lead Chest Medtronic Cardiac Rhythm Mgmt 5076-52 / [id number] / Medtronic Pacemaker ([id number])-2019 Implanted:10/09 (Quantity not on file) Pacemaker Chest Medtronic Second Degree AVB [id number] / [id number] / Procedures Procedure Name Priority Date/Time Associated Diagnosis Comments DEVICE CHECK - IN OFFICE Routine 05/16/2025 9:06 AM CDT Second degree atrioventricular block from [...] remaining battery life to ANA MARÍA. Presenting [id number]. Underlying rhythm-CHB, no ventricular escape @ VVI 30 bpm. Consider Pacer Dependent. 4-mode switch episodes noted, longest 3 min duration, [facility] and [facility] oversensing of ventricle. No ventricular arrhythmias noted. Medications; ASA, Coreg. No changes made to device settings. See scanned report. Carelink remote f/u 08/22/2025. Office pacemaker f/u 08/21/2026. Sulma Montalvo, RN Jeff Shaffer MD [facility]LEY Final Result from Last 3 Months Insurance [id number] [employer] Address: [address] [address] [place] [id number] [facility] Address: [address] [address] [place] [id number] [facility] Address: [address] [address] [place] [address] Care Teams Home Health Registered Nurse Relationship Specialty Start Date End Date Sorin Hanna MD [address] [facility] [address] [place] [address] PCP - General 11/06/16
== END 2025-06-22 08:32 | disposition home or self-care (01) ==
LOC: CHSIMG 08:32
PROVIDERS: PCP Family Medicine
DX: N64.89 Other specified disorders of breast (principal)
CPT/HCPCS: 76642; 77061; 77065; G0279